=== PATIENT | female | born 1955 | race Caucasian/White ===

== ENCOUNTER 2021-03-03 08:00 | Day surgery (SDC) | payer OTHER ==
[2021-03-03] MEDS ORDERED: Ringers Lactate 1,000 ML IV ONE (08:43)
[2021-03-03] MEDS ORDERED: LIDOCAINE 1% MPF 5 ML VIAL ONE (09:46)
[2021-03-03] MEDS ORDERED: propofoL 200 MG/20 ML VIAL IV ONE (09:46)
--- NOTE | 2021-03-03 09:47 | ENDO RPT ---
[address], [address] COLONOSCOPY PROCEDURE REPORT EXAM DATE: 03/03/2021 PATIENT NAME: Odilia Salinas MR #: [id number] BIRTHDATE: 1955 ATTENDING: Brent Mcintosh DR STATUS: outpatient WASTE [employer]ING W[employer] CHOPPER: Elo Damon RN and Chantale Saldivar INDICATIONS: The patient is a 65 yr old Female here for a colonoscopy due to colon cancer screening PROCEDURE PERFORMED: Colonoscopy and Screening Colonoscopy MEDICATIONS: Per Anesthesia. ESTIMATED BLOOD LOSS: None CONSENT: The patient understands the risks and benefits of the procedure and understands that these risks include, but are not limited to: sedation, allergic reaction, infection, perforation and/or bleeding. Alternative means of evaluation and treatment include, among others: physical exam, x-rays, and/or surgical intervention. The patient elects to proceed with this endoscopic procedure. DESCRIPTION OF PROCEDURE: During intra-op preparation period all mechanical medical equipment was checked for proper function. Hand hygiene and appropriate measures for infection prevention was taken. Procedure, possible complications, alternatives including, but not limited to possibility of bleeding, perforation, tear, infection, sepsis, need for surgery, need for blood transfusion, were explained to the patient. After the risks, benefits and alternatives of the procedure were thoroughly explained, Informed consent was verified, confirmed and timeout was successfully executed by the treatment team. The patient was placed in the left lateral position. A digital rectal exam was performed and revealed internal hemorrhoids. After appropriate level of anesthesia, the scope was passed. The EC-[id number] ([id number] endoscope was introduced through the anus and advanced to the cecum, which was identified by both the appendix and ileocecal valve. The quality of the prep was fair. The instrument was then slowly withdrawn as the colon was fully examined. Scope withdrawal time was 8 minutes. COLON FINDINGS: Small internal hemorrhoids were found. Diverticulum was found in the sigmoid colon. Retroflexed views revealed no abnormalities. The scope was then completely withdrawn from the patient and the procedure terminated. ADVERSE EVENTS: There were no complications. IMPRESSIONS: 1. Small internal hemorrhoids 2. Diverticulum in the sigmoid colon RECOMMENDATIONS: 1. Monitor for any evidence of rectal bleeding. 2. fiber rich diet 3. avoid NSAIDS for 2 weeks 4. yearly hemoccult starting in 4 years 5. hemorrhoidal hygiene RECALL: Return in 5 year(s) for Colonoscopy. Fecal DNA test in [address] eSigned: Brent Mcintosh DR 03/03/2021 9:47 AM cc: CPT CODES: ICD9 CODES: PATIENT NAME: Odilia Salinas MR#: [id number]
[2021-03-03 10:07] VITALS: TEMP 97.6
[2021-03-03 10:16] VITALS: BP 121/71
[2021-03-03 10:21] VITALS: O2SAT 99
== END 2021-03-03 10:19 | disposition home or self-care (01) ==
LOC: OR 08:00
PROVIDERS: ATTEND Surgery
PROC: 0DJD8ZZ Inspection of Lower Intestinal Tract, Via Natural or Artificial Opening Endoscopic (ICD-10-PCS; principal; 2021-03-03 09:15)
DX: Z12.11 Encounter for screening for malignant neoplasm of colon (principal); Z20.822 Contact with and (suspected) exposure to COVID-19; K64.8 Other hemorrhoids; K57.30 Diverticulosis of large intestine without perforation or abscess without bleeding
CPT/HCPCS: U0003; J2704; J7120; G0121

== ENCOUNTER 2025-02-14 15:19 | Inpatient (IN) | payer OTHER ==
--- OUTSIDE RECORDS SUMMARY | 2025-02-14 21:27 | XMS REPORT | Continuity of Care Document ---
Author Name Unknown Address [address] [facility] [place] [address] [facility] Address [address] [facility] [address] [place] [address] Care Team Providers Care Counsel Name Role Phone Hyun Quintana Primary Care Physician [phone] Hyun Quintana Attending Clinician Unavailable Lor Irving Attending Clinician Unavailable EARNEST GREY Attending Clinician UnavailEARNEST Jarquin Attending Clinician Unavailable Wild Armando MD Attending Clinician [phone] WILD ARMANDO Attending Clinician Unavail able MARYLU Attending Clinician UnavailEARNEST Bingham Admitting Clinician Unavailcarlos VALERO Admitting Clinician Delfino paredes Payers Payer Name Policy Type Policy Number Effective Date Expirati on Date Source [employer] MED[employer]ARE [employer]VANTAGE Medicare [id number] 2023 00:00:00 [employer] MEDICARE O [id number] 2023 00:00:00 MEDICARE NOVITAS MB [id number] 2020 00:00:00 [facility] MEDICARE NOVITAS MB [id number] 2020 00:00:00 [facility] Problems Condition Name Condition Details Condition Category Status Onset Date Resolution Date Last Treatment Date Treating Clinician Comments Source 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 Disease Active 02-11 00:00: 00 Emelina Silver Malignant neoplasm of brain, unspecifie d Malignant neoplasm of brain, unspecifie d Disease Active 02-11 00:00: 00 Emelina Silver Allergic rhinitis Allergic rhinitis Disease Active 01-22 00:00: 00 Emelina Silver Fatigue Fatigue Disease Active 01-22 00:00: 00 Emelina Silver Gastroesop hageal reflux disease Gastroesop hageal reflux disease Disease Active 01-22 00:00: 00 Emelina Silver Hyperglyce zachariah Hyperglyce zachariah Disease Active 01-22 00:00: 00 Emelina Silver Hyperlipid emia Hyperlipid emia Disease Active 01-22 00:00: 00 Emelina Silver 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 01-22 00:00: 00 Emelina Silver Thoracic back pain Thoracic back pain Disease Active 01-22 00:00: 00 Emelina Silver Mass of brain Mass of brain Disease Active 01-22 00:00: 00 Emelina Silver Nontraumat ic 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 Nontraumat ic 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 Disease Active 01-09 00:00: 00 Emelina Silver Tremor Tremor Disease Active 12-17 00:00: 00 Emelina Silver Memory loss Memory loss Disease Active 12-17 00:00: 00 Emelina Silver Hypertensi on Hypertensi on Disease Active 12-17 00:00: 00 Emelina Silver Anxiety and depression Anxiety and depression Disease Active 8-05 00:00: 00 Emelina Silver [id number] Upper back pain Problem [facility] Family history of malignant neoplasm of gastrointe stinal tract Family history of colon cancer Problem [facility] [id number] Essential hypertensi on Problem [facility] Adult health examinatio n Encntr for general adult medical exam w/o abnormal findings Problem [facility] Elevated alkaline phosphatas e level Elevated alkaline phosphatas e level Disease Resolve d - 00:00: 00 2025-01-22 00:00:00 2025-01-22 10:58:27 Emelina Silver Encntr for general adult medical exam w/o abnormal findings Encntr for general adult medical exam w/o abnormal findings Disease Resolve d - 00:00: 00 2025-01-22 00:00:00 2025-01-22 10:58:27 Emelina Silver 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 Disease Resolve d - 00:00: 00 2025-01-22 00:00:00 2025-01-22 10:58:27 Emelina Silver Family history of colon cancer Family history of colon cancer Disease Resolve d - 00:00: 00 2025-01-22 00:00:00 2025-01-22 10:58:27 Emelina Silver Persistent cough Persistent cough Disease Resolve d - 00:00: 00 2025-01-22 00:00:00 2025-01-22 10:58:27 Emelina Silver Rash Rash Disease Resolve d - 00:00: 00 2025-01-22 00:00:00 2025-01-22 10:58:27 Emelina Silver Statin not tolerated Statin not tolerated Disease Resolve d - 00:00: 00 2025-01-22 00:00:00 2025-01-22 10:58:27 Emelina Silver Allergies, Adverse Reactions, Alerts Allergy Name Allergy Type Status Severity Reaction(s) Onset Date Inactive Date Treating Clinician Comments Source Ezetimib e Propensi ty to adverse reaction s Active 02-04 00:00: 00 Other Reaction( s): myalgias [facility] Simvasta tin Propensi ty to adverse reaction s Active 02-04 00:00: 00 Other Reaction( s): myalgias [facility] Statins Propensi ty to adverse reaction s Active 02-04 00:00: 00 Other Reaction( s): intoleran ce [facility] Social History Social Habit Start Date Stop Date Quantity Comments Source Gender identity 2025-02-05 10:36:17 Identifies as female gender (finding) [facility] [employer] Sexual orientation [facility]ION Possible [facility] History of Social function 2025-02-12 00:00:00 2025-02-12 00:00:00 [facility] [employer] Alcoholic beverage intake 2025-02-11 00:00:00 2025-02-11 00:00:00 Ex-drinker (finding) [facility] [place] [employer] Tobacco use and exposure 2025-02-10 00:00:00 2025-02-10 00:00:00 Smokeless tobacco non-user [facility] [employer] Cigarettes smoked current (pack per day) - Reported 2025-02-10 00:00:00 2025-02-10 00:00:00 [facility] [employer] Cigarette pack-years 2025-02-10 00:00:00 2025-02-10 00:00:00 [facility] [place] [employer] Sex 2025-01-23 16:46:06 2025-01-23 16:46:06 Female (finding) [facility] History of tobacco use 1969-05-15 00:00:00 1995-03-03 00:00:00 Passive smoker [facility] [place] [employer] Sex assigned at 1955 00:00:00 1955 00:00:00 [facility] Smoking Status Start Date Stop Date Source Tobacco smoking consumption unknown [facility] Ex-smoker 2025-02-10 00:00:00 2025-02-10 00:00:00 [facility] [place] [employer] Never Smoker [facility] Medications Ordered Medication Name Filled Medication Name Start Date Stop Date Current Medication? Ordering Clinician Indication Dosage Frequency Signature (SIG) Comments Components Source levETIRAcet am (Alexiara) tablet 500 mg levETIRAcet am (Keppra) tablet 500 mg 2024-05 0-03 21:00: 00 02-18 20:59 :00 No 500mg Q.5D 500 mg, Oral, Every 12 hours scheduled, First dose on Mon02/14/25 at 2100, For 8 doses Emelina Silver docusate sodium 100 MG capsule docusate sodium 100 MG capsule 2024-05 0- 00:00: 00 02-24 23:59 :00 No 100mg Q12H Take 1 capsule by mouth in the morning and 1 capsule in the evening. Do all this for 10 days. Emelina Silver dexAMETHaso ne (Decadron) 2 MG tablet dexAMETHaso ne (Decadron) 2 MG tablet 2024-05 0- 00:00: 00 02-22 23:59 :00 No Take 2 tablets by mouth 2 times a day with meals for 3 days, THEN 1 tablet 2 times a day with meals for 3 days, THEN 1 tablet 1 time each day for 2 days. Emelina Silver ondansetron (Zofran) 4 MG tablet ondansetron (Zofran) 4 MG tablet 2024-05 0- 00:00: 00 02-21 23:59 :00 No 4mg Q8H Take 1 tablet by mouth every 8 hours if needed for nausea or vomiting for up to 7 days. Emelina Silver levETIRAcet am (Keppra) 500 MG tablet levETIRAcet am (Keppra) 500 MG tablet 2024-05 0-03 00:00: 00 02-18 23:59 :00 No 500mg Q.5D Take 1 tablet by mouth in the morning and 1 tablet before bedtime. Emelina Silver polyethylen e glycol (PEG) 3350 (Miralax) packet 17 g polyethylen e glycol (PEG) 3350 (Miralax) packet 17 g 2024-05 0-02 09:00: 00 Yes 17g QD 17 g, Oral, Daily, First dose on Mon02/13/25 at 0900, Dissolve 17 g in 120 to 240 mL (4 to 8 ounces) of beverage. Emelina Silver docusate sodium (Colace) capsule 100 mg docusate sodium (Colace) capsule 100 mg 2024-05 08:00: 00 Yes 100mg Q12H 100 mg, Oral, Every 12 hours, First dose on Mon02/13/25 at 0800, OK to hold if loose stool Emelina Silver gadobenate dimeglumine (Multihance ) injection 13.5 mL gadobenate dimeglumine (Multihance ) injection 13.5 mL 2024-05 01:10: 19 02-13 01:26 :00 No .1mmol/ kg 13.5 mL (rounded from 13.6 mL = 0.1 mmol/kg ?68 kg), Intravenou s, Once in imaging, Starting on Mon02/13/25 at 0110, For 1 dose Emelina Silver hydrALAZINE injection 10 mg hydrALAZINE injection 10 mg 2024-05 22:11: 51 Yes 10mg Q4H 10 mg, Intravenou s, Every 4 hours PRN, high blood pressure, Starting on Mon02/12/25 at 2211, Give for SBP >150 Emelina Silver labetalol injection 10 mg labetalol injection 10 mg 2024-05 22:11: 34 Yes 10mg 10 mg, Intravenou s, Every 15 min PRN, high blood pressure, Starting on Mon02/12/25 at 2211, Give for SBP >150 May give up to three doses per episode, if BP still not at goal contact provider before giving further doses Emelina Silver heparin injection 5,000 Units heparin injection 5,000 Units 2024-05 18:00: 00 Yes 5000U [id number] 3D 5,000 Units, Subcutaneo us, Every 8 hours scheduled, First dose on Mon02/12/25 at 1800 Emelina Silver lisinopril tablet 20 mg lisinopril tablet 20 mg 2024-05 06:30: 00 Yes 20mg QD [Order 1 Start] Name: lisinopril tablet 20 mg Signed Summary: 20 mg, Oral, Daily 630, First dose (after last modificati on) on Mon02/12/25 at 0630 [Order 1 End] [Order 2 Start] Name: hydroCHLOR Othiazide (HYDRODiur il) tablet 12.5 mg Signed Summary: 12.5 mg, Oral, Daily 630, First dose (after last modificati on) on Mon02/12/25 at 0630 [Order 2 End] Emelina Barnett [facility] calcium gluconate 1g in NaCl 50mL IVPB 1 g calcium gluconate 1g in NaCl 50mL IVPB 1 g 2024-05 03:31: 43 Yes 1g 1 g, Intravenou s, at 100 mL/hr, Administer over 30 Minutes, As needed, Abnormal Lab Result, FOR ICU USE ONLY, Starting on Mon02/12/25 at 0331, For ionized calcium 0.8 to 0.9 mmol/L: Replace with calcium gluconate 1 gram IVPB over 30 minutes For ionized calcium </= 0.79 mmol/L: Replace with calcium gluconate 1gram IVPB over 30 minutes x 2 doses and notify MD Recheck Ionized Calcium level 2 hours after Calcium replacemen t complete. Emelina Barnett [facility] magnesium sulfate IVPB 2 g magnesium sulfate IVPB 2 g 2024-05 03:31: 43 Yes 2g 2 g, Intravenou s, Administer over 4 Hours, As needed, Abnormal Lab Result, FOR ICU USE ONLY, Starting on Mon02/12/25 at 0331, For magnesium 1.6 to 1.8 mg/dL: Replace with Mg Sulfate 2 grams IVPB over 4 hours x 1 dose. For magnesium 1.9 to 2.3 mg/dL(in CV surgery patients only): Replace with Mg Sulfate 2 grams IVPB over 4 hours X 1 dose> For magnesium </= 1.5 mg/dL: Replace with Mg Sulfate 2 grams IVPB over 4 hours X 2 doses. Notify MD if magnesium </= 1.1 mg/dL Recheck Magnesium level 2 hours after Magnesium replacemen t complete. Emelina Barnett Epic potassium & sodium phosphates (Phos-NaK) 280-160-250 MG packet 2 packet potassium & sodium phosphates (Phos-NaK) 280-160-250 MG packet 2 packet 2024-05 03:31: 43 Yes 2{packe t} Q4H [Order 1 Start] Name: potassium & sodium phosphates (Phos-NaK) 280-160-25 0 MG packet 2 packet Signed Summary: 2 packet, Oral, Every 4 hours PRN, Abnormal Lab Result, FOR ICU USE ONLY, Starting on Mon02/12/25 at 033, For phosphorus 1.6 to 3.0 mg/dL: Replace with potassium phosphate- sodium phosphate 250 mg-280 mg-160 mg oral powder 2 packets PO every 4 hours x 6 doses. Do Not Use if Potassium > 5 mEq/L Notify MD for phosphorus </= 1.4 mg/dL Recheck Phosphorus level 2 hours after Phosphorou s replacemen t complete. [Order 1 End] [Order 2 Start] Name: potassium & sodium phosphates (Phos-NaK) 280-160-25 0 MG packet 2 packet Signed Summary: 2 packet, Per G Tube, Every 4 hours PRN, Abnormal Lab Result, FOR ICU USE ONLY, Starting on Mon02/12/25 at 330, For phosphorus 1.6 to 3.0 mg/dL: Replace with potassium phosphate- sodium phosphate 250 mg-280 mg-160 mg oral powder 2 packets GT every 4 hours x 6 doses. Do Not Use if Potassium > 5 mEq/L Notify MD for phosphorus </= 1.4 mg/dL Recheck Phosphorus level 2 hours after Phosphorou s replacemen t complete. [Order 2 End] Emelina Barnett Epic sodium phosphates 45 mmol in sodium chloride 0.9 % 100 mL IVPB sodium phosphates 45 mmol in sodium chloride 0.9 % 100 mL IVPB 2024-05 03:31: 43 Yes 45mmol 45 mmol, Intravenou s, at 25 mL/hr, Administer over 4 Hours, As needed, Abnormal Lab Result, FOR ICU USE ONLY, Starting on Mon02/12/25 at 330, For phosphorus </= 1.5 mg/dL: Replace with NaPhos 45 mmol IVPB over 4 hours x 1 dose, and potassium phosphate- sodium phosphate 250 mg-280 mg-160 mg oral powder 2 packets PO/GT every 4 hours x 6 doses. Notify MD if phosphorus </= 1.4 mg/dL. Recheck Phosphorus level 2 hours after Phosphorou s replacemen t complete. Emelina regalado [place] [facility] potassium chloride IVPB 20 mEq potassium chloride IVPB 20 mEq 2024-05 03:31: 43 Yes 20meq [Order 1 Start] Name: potassium chloride IVPB 20 mEq Signed Summary: 20 mEq, Intravenou s, at 50 mL/hr, Administer over 2 Hours, As needed, Abnormal Lab Result, Via Central Line. FOR ICU USE ONLY, Starting on Mon02/12/25 at 033, Use PO or GT administra tion unless patient is first 12 hours post-op, active GI bleed, arrhythmia s, ischemic bowel or NPO.For patients with central venous access, use 20 mEq IVPB over 1 hour and repeat until total replacemen t dose is reached. For K 3.4 to 3.5 mEq/L: Replace with KCl 20 mEq IVPB Q1H x 2 doses For K 3.1 to 3.3 mEq/L: Replace with KCl 20 mEq IVPB Q1H x 3 doses. For K </= 3.0 mEq/L: Replace with KCl 20 mEq IVPB Q1H x 4 doses. Notify MD if potassium </= 2.9 mEq/L Recheck Potassium level 2 hours after IVPB Potassium replacemen t complete. [Order 1 End] [Order 2 Start] Name: potassium chloride IVPB 10 mEq Signed Summary: 10 mEq, Intravenou s, at 50 mL/hr, Administer over 1 Hours, As needed, Abnormal Lab Result, Via peripheral line, FOR ICU USE ONLY, Starting on Mon02/12/25 at 033, Use PO or GT administra tion unless patient is first 12 hours post-op, active GI bleed, arrhythmia s, ischemic bowel or NPO.For patients with peripheral venous access, use 10 mEq IVPB over 1 hour and repeat until total replacemen t dose is reached. For K 3.4 to 3.5 mEq/L: Replace with KCl 10 mEq IVPB Q1H x 4 doses. For K 3.1 to 3.3 mEq/L: Replace with KCl 10 mEq IVPB Q1H x 6 doses. For K </= 3.0 mEq/L: Replace with KCl 10 mEq IVPB Q1H x 8 doses. Notify MD if potassium </= 2.9 mEq/L Recheck Potassium level 2 hours after IVPB Potassium replacemen t complete. Infuse 10 mEq/hour via peripheral line [Order 2 End] [Order 3 Start] Name: potassium chloride CR (Klor-Con M20) ER tablet 20 mEq Signed Summary: 20 mEq, Oral, As needed, Abnormal Lab Result, FOR ICU USE ONLY, Starting on Mon02/12/25 at 033, Use PO administra tion unless patient is first 12 hours post-op, active GI bleed, arrhythmia s, ischemic bowel or NPO. For K 3.4 to 3.5 mEq/L: Replace with KCl 40 mEq PO x 1 dose. For K 3.1 to 3.3 mEq/L: Replace with KCl 60 mEq PO x 1 dose? For K </= 3.0 mEq/L: Replace with KCl 40 mEq PO Q2H x 2 doses. Notify MD if potassium </= 2.9 mEq/L? Recheck Potassium level 4 hours after PO/GT Potassium replacemen t complete. ? DO NOT CRUSH.? For patients able to take medication s orally or via feeding tube >/= 14 [place], may dissolve each 20 mEq tablet in 4 oz of water.? Allow about 2 minutes for the tablets to disintegra te.? Stir before giving to prepare slurry and administer .? Please exclude patient's with feeding tube less than 14 [place] (Dobhoff, J-tube, etc) and pediatric and patients. Do not crush or chew. [Order 3 End] [Order 4 Start] Name: Potassium chloride solution 20 mEq Signed Summary: 20 mEq, Per G Tube, As needed, Abnormal Lab Result, FOR ICU USE ONLY, Starting on Mon02/12/25 at 033, Use GT administra tion unless patient is first 12 hours post-op, active GI bleed, arrhythmia s, ischemic bowel or NPO. For K 3.4 to 3.5 mEq/L: Replace with KCl 40 mEq GT x 1 dose. For K 3.1 to 3.3 mEq/L: Replace with KCl 60 mEq GT x 1 dose For K </= 3.0 mEq/L: Replace with KCl 40 mEq GT Q2H x 2 doses. Notify MD if potassium </= 2.9 mEq/L Recheck Potassium level 4 hours after PO/GT Potassium replacemen t complete. [Order 4 End] Emelina Silver famotidine (PF) (Pepcid) injection 20 mg famotidine (PF) (Pepcid) injection 20 mg 02-11 21:00: 00 Yes 20mg Q.5D 20 mg, Intravenou s, Administer over 2 Minutes, Every 12 hours scheduled, First dose on Mon02/11/25 at 2100, For 1 dose, Can administer 10 mg IV over 2 mins Emelina Silver levETIRAcet am (Keppra) injection 500 mg levETIRAcet am (Keppra) injection 500 mg 02-11 21:00: 00 02-14 13:21 :48 No 500mg Q.5D 500 mg, Intravenou s, Every 12 hours scheduled, First dose on Mon02/11/25 at 2100, For 7 days, Administer over 3 minutes IV push for doses up to 1500 mg. Emelina Silver fosaprepita nt (Emend) 150 mg in sodium chloride 0.9 % 255 mL IVPB fosaprepita nt (Emend) 150 mg in sodium chloride 0.9 % 255 mL IVPB 02-11 20:15: 00 02-12 00:50 :00 No 150mg 150 mg, Intravenou s, at 510 mL/hr, Administer over 30 Minutes, Once, On Mon02/11/25 at 2015, For 1 dose Emelina Silver dexAMETHaso ne (Decadron) injection 4 mg dexAMETHaso ne (Decadron) injection 4 mg 02-11 17:00: 00 Yes 4mg Q12H 4 mg, Intravenou s, Every 12 hours, First dose on Mon02/11/25 at 1700, Recovery & On Unit Emelina Silver hydrALAZINE (Apresoline ) tablet 25 mg hydrALAZINE (Apresoline ) tablet 25 mg 02-11 17:00: 00 Yes 25mg Q.5D 25 mg, Oral, 2 times daily, First dose on Mon02/11/25 at 1700 Emelina Silver sennosides (Senokot) tablet 8.6 mg sennosides (Senokot) tablet 8.6 mg 02-11 17:00: 00 Yes 1{tbl} Q.5D 8.6 mg (1 tablet), Oral, 2 times daily, First dose on Mon02/11/25 at 1700 Emelina Silver labetalol injection 10 mg labetalol injection 10 mg 02-11 13:43: 15 02-11 21:16 :27 No 10mg 10 mg, Intravenou s, Every 5 min PRN, high blood pressure, Systolic blood pressure greater than 120 mmHg and/or Diastolic blood pressure greater than 90 mmHg. Hold if Heart Rate less than 60 beats per minute., Starting on Mon02/11/25 at 1343, Recovery (only) Emelina Silver sertraline (Zoloft) tablet 25 mg sertraline (Zoloft) tablet 25 mg 02-11 12:45: 00 Yes 25mg QD 25 mg, Oral, Daily 630, First dose on Mon02/11/25 at 1245, For tube: crush into fine powder, mix with 10 mL of water, give immediatel y, & flush with equal amount of water to prevent clogging. Emelina Silver buPROPion SR (Wellbutrin SR) 12 hr tablet 300 mg buPROPion SR (Wellbutrin SR) 12 hr tablet 300 mg 02-11 12:45: 00 Yes 300mg QD 300 mg, Oral, Daily 630, First dose on Mon02/11/25 at 1245, Do not crush, chew, or split. Emelina Barnett Epic famotidine (Pepcid) tablet 20 mg famotidine (Pepcid) tablet 20 mg 02-11 12:45: 00 Yes 20mg QD 20 mg, Oral, Daily, First dose on Mon02/11/25 at 1245 Emelina Barnett Epic sodium chloride (NS) 0.9 % flush 10 mL sodium chloride (NS) 0.9 % flush 10 mL 02-11 12:45: 00 Yes 10mL Q12H 10 mL, Intravenou s, Every 12 hours, First dose on Mon02/11/25 at 1245, Administer at least once every 12 hours Emelina Barnett Epic niCARdipine (Cardene) 40 mg/200 mL NS (0.2 mg/mL) premix niCARdipine (Cardene) 40 mg/200 mL NS (0.2 mg/mL) premix 02-11 12:45: 00 02-12 06:51 :50 No 0mg/h 0-15 mg/hr (0-75 mL/hr), Intravenou s, Continuous , Starting on Mon02/11/25 at 1245, Notify Provider if the medication is at max dose and BP parameters are not able to be achieved., Infusion Type: Titrate, Initial Dose (mg/hr): 2.5 - 5, Titrate by (mg/hr): 2.5, Minimum titration timeframe (minutes): 5, Target Blood Pressure (mmHg): Other, Specify Goal: SBP less than 120 mmhg, Max Dose (mg/hr): 15 Emelina regalado [place] [employer] traMADol (Ultram) tablet 50 mg traMADol (Ultram) tablet 50 mg 02-11 12:42: 20 Yes 50mg Q6H 50 mg, Oral, Every 6 hours PRN, moderate pain (4-6), [facility]02/11/25 [facility] 1242 [facility] HYDROcodone -acetaminop hen (Champion) 5-325 MG per tablet 2 tablet HYDROcodone -acetaminop hen (Champion) 5-325 MG per tablet 2 tablet 02-11 12:41: 59 Yes 2{tbl} Q6H 2 tablet, Oral, Every 6 hours PRN, severe pain (7-10), Starting on Mon02/11/25 at 1241 [facility] insulin lispro (HumaLOG, Admelog) injection 3-12 Units insulin lispro (HumaLOG, Admelog) injection 3-12 Units 02-11 12:38: 39 Yes 3U [id number] 3D 3-12 Units, Subcutaneo us, 3 times daily PRN, high blood sugar, with meals, Starting on Mon02/11/25 at 1238, For BG < 70, follow hypoglycem ia protocol and notify ordering provider. If patient can eat or drink, give oral carbohydra te as ordered per hypoglycem ia protocol. If patient NPO, give dextrose 50 % IV as ordered per hypoglycem ia protocol. If NPO and no IV access, give glucagon IM as ordered per hypoglycem ia protocol. Check BG every 15 minutes and repeat treatment if continued BG < 80., Correction Insulin Dosing: (DO NOT CHANGE DEFAULT SELECTION/ VALUES): Medium, BG < 70 instructio ns: Follow Hypoglycem ia Orders, BG 70-149 instructio ns: No Dose Needed, BG 150-199: 3, BG 200-249: 6, BG 250-299: 9, BG >/= 300: 12, BG > 300 instructio ns: Contact Provider Emelina Silver glucagon injection 1 mg glucagon injection 1 mg 02-11 12:38: 26 Yes 1mg 1 mg, Intramuscu lar, As needed, For BG < 70 mg/dL if no IV access and patient is either Unconsciou s, unable to swallow or npo, Starting on Mon02/11/25 at 1238, For BG < 70 mg/dL if no IV access and patient is either Unconsciou s, unable to swallow or npo and notify MD. Emelina Barnett Epic dextrose 50 % solution 25 g dextrose 50 % solution 25 g 02-11 12:38: 26 Yes 25g 25 g, Intravenou s, As needed, other, if Blood Glucose </= 50 mg/dL, Starting on Mon02/11/25 at 1238, If BG </=50 mg/dL, give 50 mL of D50W IV push STAT and notify MD. Emelina Silver dextrose 50 % solution 12.5 g dextrose 50 % solution 12.5 g 02-11 12:38: 26 Yes 12.5g 12.5 g, Intravenou s, As needed, low blood sugar, if Blood Glucose 51- 69 mg/dL, Starting on Mon02/11/25 at 1238, For BG 51-69 mg/dL and patient UNCONSCIOU S OR UNABLE TO SWALLOW OR NPO: Give 25 mL of D50W IV push and notify MD. mEelina Silver ipratropium -albuterol (Duo-Neb) 0.5-2.5 mg/3 mL nebulizer solution 3 mL ipratropium -albuterol (Duo-Neb) 0.5-2.5 mg/3 mL nebulizer solution 3 mL 02-11 12:37: 19 Yes 3mL Q4H 3 mL, Nebulizati on, Every 4 hours PRN, wheezing, Starting on Mon02/11/25 at 1237 Emelina Silver diphenhydrA MINE (BENADryl) liquid 12.5 mg diphenhydrA MINE (BENADryl) liquid 12.5 mg 02-11 12:37: 19 Yes 12.5mg Q6H 12.5 mg, Oral, Every 6 hours PRN, itching, Starting on Mon02/11/25 at 1237 Emelina Silver naloxone (Narcan) injection 0.04 mg naloxone (Narcan) injection 0.04 mg 02-11 12:37: 18 Yes .04mg 0.04 mg, Intravenou s, As needed, opioid reversal, every 2 mins PRN for Narcotic Reversal, Starting on Mon02/11/25 at 1237, For 8 doses, Give up to 8 doses of 0.04 mg as needed to reverse over sedation. Keep available for immediate use. Call ordering physician STAT. (Dilute 0.4 mg/mL in 9 mL of saline) Emelina Silver bisacodyl (Dulcolax) suppository 10 mg bisacodyl (Dulcolax) suppository 10 mg 02-11 12:37: 18 Yes 10mg Q24H 10 mg, Rectal, Daily PRN, constipati on, Starting on Mon02/11/25 at 1237 Emelina Silver ondansetron (Zofran) injection 4 mg ondansetron (Zofran) injection 4 mg 02-11 12:37: 18 Yes 4mg Q6H 4 mg, Intravenou s, Every 6 hours PRN, nausea, vomiting, Starting on Mon02/11/25 at 1237 Emelina Barnett Epic sodium chloride 0.9 % infusion 250 mL sodium chloride 0.9 % infusion 250 mL 02-11 12:37: 18 Yes 250mL 250 mL, Intravenou s, As needed, For antibiotic flush to clear line, replace bag every 24 hours., Starting on Mon02/11/25 at 1237 Emelina Barnett Epic sodium chloride (NS) 0.9 % flush 10 mL sodium chloride (NS) 0.9 % flush 10 mL 02-11 12:37: 18 Yes 10mL 10 mL, Intravenou s, As needed, line care, Line Flush, Starting on Mon02/11/25 at 1237 Emelina Silver electrolyte solution pH 7.4 (Plasma-lyt e/Normosol/ Isolyte) infusion electrolyte solution pH 7.4 (Plasma-lyt e/Normosol/ Isolyte) infusion 02-11 06:45: 00 02-12 06:50 :47 No 75mL/h 75 mL/hr, Intravenou s, Continuous , Starting on Mon02/11/25 at 0645, Preprocedu re, Anesthesia Pre-op Emelina Silver acetaminoph en (Tylenol) tablet 1,000 mg acetaminoph en (Tylenol) tablet 1,000 mg 02-11 06:45: 00 02-11 06:45 :00 No 1000mg 1,000 mg, Oral, Once, On Mon02/11/25 at 0645, For 1 dose, Preprocedu re, DO NOT GIVE IF PATIENT HAS RECEIVED ACETAMINOP HEN IN THE PAST SIX HOURS. Maybe administer ed with midazolam. Max acetaminop hen from all sources = 4,000 mg in 24 hours. Anesthesia Pre-op Emelina Silver acetaminoph en (Tylenol) 500 MG tablet - Pyxis Override Pull acetaminoph en (Tylenol) 500 MG tablet - Pyxis Override Pull 02-11 06:40: 48 02-11 06:45 :00 No Starting on Mon02/11/25 at 0640, For 1 dose, Created by cabinet override Emelina Silver sertraline (Zoloft) 25 MG tablet 02-07 10:15: 36 Yes 25mg QD Take 25 mg by mouth in the morning. [facility] Multiple Vitamins-Mi nerals (Multi Complete) capsule 02-07 10:15: 28 Yes 1 (one) time each day at the same time. [facility] Multiple Vitamin (multivitam in) tablet 02-07 10:15: 28 Yes 1{tbl} QD Take 1 tablet by mouth 1 (one) time each day. [facility] metFORMIN (Glucophage ) 500 MG tablet 02-07 10:15: 28 Yes 500mg [id number] 3D Take 500 mg by mouth in the morning and 500 mg at noon and 500 mg in the evening. [facility] loratadine (Claritin) 10 MG tablet 02-07 10:15: 28 Yes 1 tablet Orally Once a day prn [facility] Repatha 140 MG/ML solution prefilled syringe 02-07 10:15: 28 Yes INJECT 1 ML SUBCUTANEO EVERY 2 WEEKS [address] [facility] aspirin 81 MG EC tablet 02-07 10:15: 28 Yes 81mg QD 1 (one) time each day at the same time. [facility] Alirocumab (Praluent) 75 MG/ML solution auto-inject or 02-07 10:15: 28 Yes as directed Subcutaneo [facility] Semaglutide -Weight Management 0.25 MG/0.5ML solution auto-inject or 02-07 10:15: 28 Yes 0.5 mL Subcutaneo [facility] aspirin EC 81 MG EC tablet aspirin EC 81 MG EC tablet 12-17 13:57: 15 Yes 81mg QD Take 81 mg by mouth 1 time each day. Emelina [facility] Multiple Vitamin (multivitam in) tablet Multiple Vitamin (multivitam in) tablet 12-17 13:57: 15 Yes 1{tbl} QD Take 1 tablet by mouth 1 time each day. Emelina Silver NON FORMULARY NON FORMULARY 12-17 13:57: 15 01-22 00:00 :00 No [facility] Emelina [facility] metFORMIN (Glucophage ) 500 MG tablet metFORMIN (Glucophage ) 500 MG tablet 12-17 13:56: 14 Yes 500mg [id number] 3D Take 500 mg by mouth in the morning and 500 mg at noon and 500 mg in the evening. Emelina Barnett [facility] lisinopril- hydroCHLORO thiazide 20-12.5 MG tablet lisinopril- hydroCHLORO thiazide 20-12.5 MG tablet 12-11 00:00: 00 Yes 1{tbl} QD Take 1 tablet by mouth 1 time each day. Emelina Silver Repatha SureClick 140 MG/ML Subcutaneou s Solution Auto-inject or Repatha SureClick 140 MG/ML Subcutaneou s Solution Auto-inject or 11-25 00:00: 00 Yes 140mg Q14D Inject 140 mg under the skin every 14 days. Emelina Silver buPROPion SR (Wellbutrin SR) 150 MG 12 hr tablet buPROPion SR (Wellbutrin SR) 150 MG 12 hr tablet 11-14 00:00: 00 Yes 2{tbl} QD Take 2 tablets by mouth 1 time each day. Emelina Silver hydrALAZINE (Apresoline ) 25 MG tablet hydrALAZINE (Apresoline ) 25 MG tablet 11-14 00:00: 00 Yes 1{tbl} Q.5D Take 1 tablet by mouth in the morning and 1 tablet in the evening. Emelina Silver sertraline (Zoloft) 25 MG tablet sertraline (Zoloft) 25 MG tablet 10-22 00:00: 00 Yes 1{tbl} QD Take 1 tablet by mouth 1 time each day. Emelina Silver Claritin 10 MG Claritin 10 MG No 1{table t} Claritin 10 MG Aspirin 81 MG Aspirin 81 MG No 1{table t} QD Aspirin 81 MG Multi Complete - Multi Complete - No QD Multi Complete - metFORMIN HCl 500 MG metFORMIN HCl 500 MG No 1{table t_with_ a_meal} TID metFORMIN HCl 500 MG Immunizations Ordered Immunization Name Filled Immunization Name Date Status Comments Source FLUZONE HIGH DOSE OVER 65 FLUZONE HIGH DOSE OVER 65 2022-01-28 08:34:00 Completed [facility] FLUZONE HIGH DOSE OVER 65 FLUZONE HIGH DOSE OVER 65 2022-01-28 08:34:00 Completed [facility] FLUZONE HIGH DOSE OVER 65 FLUZONE HIGH DOSE OVER 65 2022-01-28 08:34:00 Completed [facility] Shingrix Shingrix 2021-04-12 08:57:00 Completed [facility] Shingrix Shingrix 2021-04-12 08:57:00 Completed [facility] Shingrix Shingrix 2021-04-12 08:57:00 Completed [facility] Moderna COVID-19 Vaccine (Low Dose Booster) Moderna COVID-19 Vaccine (Low Dose Booster) 2021-03-20 08:33:00 Completed [facility] Moderna COVID-19 Vaccine (Low Dose Booster) Moderna COVID-19 Vaccine (Low Dose Booster) 2021-03-20 08:33:00 Completed [facility] Moderna COVID-19 Vaccine (Low Dose Booster) Moderna COVID-19 Vaccine (Low Dose Booster) 2021-03-20 08:33:00 Completed [facility] Prevnar 13 (PCV13) Prevnar 13 (PCV13) 2021-02-22 08:57:00 Completed [facility] Prevnar 13 (PCV13) Prevnar 13 (PCV13) 2021-02-22 08:57:00 Completed [facility] Prevnar 13 (PCV13) Prevnar 13 (PCV13) 2021-02-22 08:57:00 Completed [facility] Shingrix Shingrix 2021-02-22 08:56:00 Completed [facility] Shingrix Shingrix 2021-02-22 08:56:00 Completed [facility] Shingrix Shingrix 2021-02-22 08:56:00 Completed [facility] FLUZONE HIGH DOSE OVER 65 FLUZONE HIGH DOSE OVER 65 2021-02-19 08:46:00 Completed [facility] FLUZONE HIGH DOSE OVER 65 FLUZONE HIGH DOSE OVER 65 2021-02-19 08:46:00 Completed [facility] FLUZONE HIGH DOSE OVER 65 FLUZONE HIGH DOSE OVER 65 2021-02-19 08:46:00 Completed [facility] Moderna COVID-19 Vaccine Moderna COVID-19 Vaccine 2020-06-23 08:27:00 Completed [facility] Moderna COVID-19 Vaccine Moderna COVID-19 Vaccine 2020-06-23 08:27:00 Completed [facility] Moderna COVID-19 Vaccine Moderna COVID-19 Vaccine 2020-06-23 08:27:00 Completed [facility] Moderna COVID-19 Vaccine Moderna COVID-19 Vaccine 2020-06-23 08:27:00 Completed [facility] Moderna COVID-19 Vaccine Moderna COVID-19 Vaccine 2020-05-27 08:27:00 Completed [facility] Moderna COVID-19 Vaccine Moderna COVID-19 Vaccine 2020-05-27 08:27:00 Completed [facility] Moderna COVID-19 Vaccine Moderna COVID-19 Vaccine 2020-05-27 08:27:00 Completed [facility] Moderna COVID-19 Vaccine Moderna COVID-19 Vaccine 2020-05-27 08:27:00 Completed [facility] Adacel (Tdap) Adacel (Tdap) 2019-07-09 14:56:00 Completed [facility] Adacel (Tdap) Adacel (Tdap) 2019-07-09 14:56:00 Completed [facility] Adacel (Tdap) Adacel (Tdap) 2019-07-09 14:56:00 Completed [facility] Adacel (Tdap) Adacel (Tdap) 2019-07-09 14:56:00 Completed [facility] TDAP > 7 Years-Adacel TDAP > 7 Years-Adacel 2019-07-09 00:00:00 Completed [facility] Flucelvax - multidose vial Flucelvax - multidose vial 2018-04-20 11:23:00 Completed [facility] Flucelvax - multidose vial Flucelvax - multidose vial 2018-04-20 11:23:00 Completed [facility] Flucelvax - multidose vial Flucelvax - multidose vial 2018-04-20 11:23:00 Completed [facility] Flucelvax - multidose vial Flucelvax - multidose vial 2018-04-20 11:23:00 Completed [facility] Afluria Afluria 2017-06-09 16:15:00 Completed [facility] Afluria Afluria 2017-06-09 16:15:00 Completed [facility] Afluria Afluria 2017-06-09 16:15:00 Completed [facility] Afluria Afluria 2017-06-09 16:15:00 Completed [facility] Flulaval Quadrivalent Flulaval Quadrivalent Unknown Completed [facility] Moderna COVID-19 Vaccine Moderna COVID-19 Vaccine Unknown Completed [facility] Moderna COVID-19 Vaccine, Bivalent Moderna COVID-19 Vaccine, Bivalent Unknown Completed [facility] Prevnar 13 (PCV13) Prevnar 13 (PCV13) Unknown Completed [facility] Flucelvax - multidose vial Flucelvax - multidose vial Unknown Completed [facility] Shingrix Shingrix Unknown Completed [facility] Afluria Afluria Unknown Completed [facility] FLUZONE HIGH DOSE OVER 65 FLUZONE HIGH DOSE OVER 65 Unknown Completed [facility] Adacel (Tdap) Adacel (Tdap) Unknown Completed [facility] Flulaval Quadrivalent Flulaval Quadrivalent Unknown Completed [facility] Moderna COVID-19 Vaccine Moderna COVID-19 Vaccine Unknown Completed [facility] Moderna COVID-19 Vaccine, Bivalent Moderna COVID-19 Vaccine, Bivalent Unknown Completed [facility] Prevnar 13 (PCV13) Prevnar 13 (PCV13) Unknown Completed [facility] Flucelvax - multidose vial Flucelvax - multidose vial Unknown Completed [facility] Shingrix Shingrix Unknown Completed [facility] Afluria Afluria Unknown Completed [facility] FLUZONE HIGH DOSE OVER 65 FLUZONE HIGH DOSE OVER 65 Unknown Completed [facility] Adacel (Tdap) Adacel (Tdap) Unknown Completed [facility] Flulaval Quadrivalent Flulaval Quadrivalent Unknown [facility] COVID-19 Vaccine Moderna COVID-19 Vaccine Unknown Completed [facility] Moderna COVID-19 Vaccine, Bivalent Moderna COVID-19 Vaccine, Bivalent Unknown Completed [facility] Prevnar 13 (PCV13) Prevnar 13 (PCV13) Unknown Completed [facility] Flucelvax - multidose vial Flucelvax - multidose vial Unknown Completed [facility] Shingrix Shingrix Unknown Completed [facility] Afluria Afluria Unknown Completed [facility] FLUZONE HIGH DOSE OVER 65 FLUZONE HIGH DOSE OVER 65 Unknown Completed [facility] Adacel (Tdap) Adacel (Tdap) Unknown Completed [facility] Flulaval Quadrivalent Flulaval Quadrivalent Unknown Completed [facility] Moderna COVID-19 Vaccine Moderna COVID-19 Vaccine Unknown Completed [facility] Moderna COVID-19 Vaccine, Bivalent Moderna COVID-19 Vaccine, Bivalent Unknown Completed [facility] Prevnar 13 (PCV13) Prevnar 13 (PCV13) Unknown Completed [facility] Flucelvax - multidose vial Flucelvax - multidose vial Unknown Completed [facility] Shingrix Shingrix Unknown Completed [facility] Afluria Afluria Unknown Completed [facility] FLUZONE HIGH DOSE OVER 65 FLUZONE HIGH DOSE OVER 65 Unknown Completed [facility] Adacel (Tdap) Adacel (Tdap) Unknown Completed [facility] FluLaval (IIV4) - SDS - 0.5mL FluLaval (IIV4) - SDS - 0.5mL Unknown Completed [facility] Moderna COVID-19 Vaccine Moderna COVID-19 Vaccine Unknown Completed [facility] Moderna COVID-19 Vaccine, Bivalent Moderna COVID-19 Vaccine, Bivalent Unknown Completed [facility] Prevnar 13 (PCV13) Prevnar 13 (PCV13) Unknown Completed [facility] Flucelvax (ccIIV4) - MDV - 0.5mL Flucelvax (ccIIV4) - MDV - 0.5mL Unknown Completed [facility] Shingrix Shingrix Unknown Completed [facility] Afluria Afluria Unknown Completed [facility] FLUZONE HIGH DOSE OVER 65 FLUZONE HIGH DOSE OVER 65 Unknown Completed [facility] Adacel (Tdap) Adacel (Tdap) Unknown Completed [facility] FluLaval (IIV4) - SDS - 0.5mL FluLaval (IIV4) - SDS - 0.5mL Unknown Completed [facility] Moderna COVID-19 Vaccine Moderna COVID-19 Vaccine Unknown Completed [facility] Moderna COVID-19 Vaccine, Bivalent Moderna COVID-19 Vaccine, Bivalent Unknown Completed [facility] Prevnar 13 (PCV13) Prevnar 13 (PCV13) Unknown Completed [facility] Flucelvax (ccIIV4) - MDV - 0.5mL Flucelvax (ccIIV4) - MDV - 0.5mL Unknown Completed [facility] Shingrix Shingrix Unknown Completed [facility] Afluria Afluria Unknown Completed [facility] FLUZONE HIGH DOSE OVER 65 FLUZONE HIGH DOSE OVER 65 Unknown Completed [facility] Adacel (Tdap) Adacel (Tdap) Unknown Completed [facility] FluLaval (IIV4) - SDS - 0.5mL FluLaval (IIV4) - SDS - 0.5mL Unknown Completed [facility] Moderna COVID-19 Vaccine Moderna COVID-19 Vaccine Unknown Completed [facility] Moderna COVID-19 Vaccine, Bivalent Moderna COVID-19 Vaccine, Bivalent Unknown Completed [facility] Prevnar 13 (PCV13) Prevnar 13 (PCV13) Unknown Completed [facility] Flucelvax (ccIIV4) - MDV - 0.5mL Flucelvax (ccIIV4) - MDV - 0.5mL Unknown Completed [facility] Shingrix Shingrix Unknown Completed [facility] Afluria Afluria Unknown Completed [facility] FLUZONE HIGH DOSE OVER 65 FLUZONE HIGH DOSE OVER 65 Unknown Completed [facility] Adacel (Tdap) Adacel (Tdap) Unknown Completed [facility] FluLaval (IIV4) - SDS - 0.5mL FluLaval (IIV4) - SDS - 0.5mL Unknown Completed [facility] Moderna COVID-19 Vaccine Moderna COVID-19 Vaccine Unknown Completed [facility] Moderna COVID-19 Vaccine, Bivalent Moderna COVID-19 Vaccine, Bivalent Unknown Completed [facility] Prevnar 13 (PCV13) Prevnar 13 (PCV13) Unknown Completed [facility] Flucelvax (ccIIV4) - MDV - 0.5mL Flucelvax (ccIIV4) - MDV - 0.5mL Unknown Completed [facility] Shingrix Shingrix Unknown Completed [facility] Afluria Afluria Unknown Completed [facility] FLUZONE HIGH DOSE OVER 65 FLUZONE HIGH DOSE OVER 65 Unknown Completed [facility] Adacel (Tdap) Adacel (Tdap) Unknown Completed [facility] FluLaval (IIV4) - SDS - 0.5mL FluLaval (IIV4) - SDS - 0.5mL Unknown Completed [facility] Moderna COVID-19 Vaccine Moderna COVID-19 Vaccine Unknown Completed [facility] Moderna COVID-19 Vaccine, Bivalent Moderna COVID-19 Vaccine, Bivalent Unknown Completed [facility] Prevnar 13 (PCV13) Prevnar 13 (PCV13) Unknown Completed [facility] Flucelvax (ccIIV4) - MDV - 0.5mL Flucelvax (ccIIV4) - MDV - 0.5mL Unknown Completed [facility] Shingrix Shingrix Unknown Completed [facility] Afluria Afluria Unknown Completed [facility] FLUZONE HIGH DOSE OVER 65 FLUZONE HIGH DOSE OVER 65 Unknown Completed [facility] Adacel (Tdap) Adacel (Tdap) Unknown Completed [facility] FluLaval (IIV4) - SDS - 0.5mL FluLaval (IIV4) - SDS - 0.5mL Unknown Completed [facility] COVID-19 Vaccine Moderna COVID-19 Vaccine Unknown Completed [facility] Moderna COVID-19 Vaccine, Bivalent Moderna COVID-19 Vaccine, Bivalent Unknown Completed [facility] Prevnar 13 (PCV13) Prevnar 13 (PCV13) Unknown Completed [facility] Flucelvax (ccIIV4) - MDV - 0.5mL Flucelvax (ccIIV4) - MDV - 0.5mL Unknown Completed [facility] Shingrix Shingrix Unknown Completed [facility] Afluria Afluria Unknown Completed [facility] FLUZONE HIGH DOSE OVER 65 FLUZONE HIGH DOSE OVER 65 Unknown Completed [facility] Adacel (Tdap) Adacel (Tdap) Unknown Completed [facility] FluLaval (IIV4) - SDS - 0.5mL FluLaval (IIV4) - SDS - 0.5mL Unknown Completed [facility] Moderna COVID-19 Vaccine Moderna COVID-19 Vaccine Unknown Completed [facility] Moderna COVID-19 Vaccine, Bivalent Moderna COVID-19 Vaccine, Bivalent Unknown Completed [facility] Prevnar 13 (PCV13) Prevnar 13 (PCV13) Unknown Completed [facility] Flucelvax (ccIIV4) - MDV - 0.5mL Flucelvax (ccIIV4) - MDV - 0.5mL Unknown Completed [facility] Shingrix Shingrix Unknown Completed [facility] Afluria Afluria Unknown Completed [facility] FLUZONE HIGH DOSE OVER 65 FLUZONE HIGH DOSE OVER 65 Unknown Completed [facility] Adacel (Tdap) Adacel (Tdap) Unknown Completed [facility] FluLaval (IIV4) - SDS - 0.5mL FluLaval (IIV4) - SDS - 0.5mL Unknown Completed [facility] COVID-19 Vaccine Moderna COVID-19 Vaccine Unknown Completed [facility] Moderna COVID-19 Vaccine, Bivalent Moderna COVID-19 Vaccine, Bivalent Unknown Completed [facility] Prevnar 13 (PCV13) Prevnar 13 (PCV13) Unknown Completed [facility] Flucelvax (ccIIV4) - MDV - 0.5mL Flucelvax (ccIIV4) - MDV - 0.5mL Unknown Completed [facility] Shingrix Shingrix Unknown Completed [facility] Afluria Afluria Unknown Completed [facility] FLUZONE HIGH DOSE OVER 65 FLUZONE HIGH DOSE OVER 65 Unknown Completed [facility] Adacel (Tdap) Adacel (Tdap) Unknown Completed [facility] FluLaval (IIV4) - SDS - 0.5mL FluLaval (IIV4) - SDS - 0.5mL Unknown Completed [facility] Moderna COVID-19 Vaccine Moderna COVID-19 Vaccine Unknown Completed [facility] Moderna COVID-19 Vaccine, Bivalent Moderna COVID-19 Vaccine, Bivalent Unknown Completed [facility] Prevnar 13 (PCV13) Prevnar 13 (PCV13) Unknown Completed [facility] Flucelvax (ccIIV4) - MDV - 0.5mL Flucelvax (ccIIV4) - MDV - 0.5mL Unknown Completed [facility] Shingrix Shingrix Unknown Completed [facility] Afluria Afluria Unknown Completed [facility] FLUZONE HIGH DOSE OVER 65 FLUZONE HIGH DOSE OVER 65 Unknown Completed [facility] Adacel (Tdap) Adacel (Tdap) Unknown Completed [facility] FluLaval (IIV4) - SDS - 0.5mL FluLaval (IIV4) - SDS - 0.5mL Unknown Completed [facility] COVID-19 Vaccine Moderna COVID-19 Vaccine Unknown Completed [facility] Moderna COVID-19 Vaccine, Bivalent Moderna COVID-19 Vaccine, Bivalent Unknown Completed [facility] Prevnar 13 (PCV13) Prevnar 13 (PCV13) Unknown Completed [facility] Flucelvax (ccIIV4) - MDV - 0.5mL Flucelvax (ccIIV4) - MDV - 0.5mL Unknown Completed [facility] Shingrix Shingrix Unknown Completed [facility] Afluria Afluria Unknown Completed [facility] FLUZONE HIGH DOSE OVER 65 FLUZONE HIGH DOSE OVER 65 Unknown Completed [facility] Adacel (Tdap) Adacel (Tdap) Unknown Completed [facility] FluLaval (IIV4) - SDS - 0.5mL FluLaval (IIV4) - SDS - 0.5mL Unknown Completed [facility] Moderna COVID-19 Vaccine Moderna COVID-19 Vaccine Unknown Completed [facility] COVID-19 Vaccine, Bivalent Moderna COVID-19 Vaccine, Bivalent Unknown Completed [facility] Prevnar 13 (PCV13) Prevnar 13 (PCV13) Unknown Completed [facility] Flucelvax (ccIIV4) - MDV - 0.5mL Flucelvax (ccIIV4) - MDV - 0.5mL Unknown Completed [facility] Shingrix Shingrix Unknown Completed [facility] Afluria Afluria Unknown Completed [facility] FLUZONE HIGH DOSE OVER 65 FLUZONE HIGH DOSE OVER 65 Unknown Completed [facility] Adacel (Tdap) Adacel (Tdap) [facility] ([facility] - SDS - 0.5mL Fluad (IIV) - SDS - 0.5mL Unknown Completed [facility] Prevnar 20 (PCV20) Prevnar 20 (PCV20) Unknown Completed [facility] Vital Signs Vital Name Observation Time Observation Value Comments S zuly Systolic blood pressure 2025-02-14 17:00:00 148 mm[Hg] [facility] Diastolic blood pressure 2025-02-14 17:00:00 82 mm[Hg] [facility] Heart rate 2025-02-14 17:00:00 71 /min [facility] Body temperature 2025-02-14 17:00:00 36.39 Myriam [facility] Respiratory rate 2025-02-14 17:00:00 16 /min [facility] Oxygen saturation in Arterial blood by Pulse oximetry 2025-02-14 16:17:19 97 /min [facility] Body height 2025-02-11 07:03:00 157.5 cm [facility] Body weight 2025-02-11 07:03:00 68 kg [facility] BMI 2025-02-11 07:03:00 27.42 kg/m2 Sami rial [facility] Systolic blood pressure 2025-02-07 15:15:00 144 mm[Hg] [facility] Diastolic blood pressure 2025-02-07 15:15:00 86 mm[Hg] [facility] Heart rate 2025-02-07 15:15:00 64 /min [facility] 2025-02-07 15:15:00 [facility] 2025-02-07 15:15:00 [facility] 2025-02-07 15:15:00 27[facility] 2025-01-22 10:56:00 144 mm[Hg] [facility] Diastolic blood pressure 2025-01-22 10:56:00 88 mm[Hg] [facility] Heart rate 2025-01-22 10:56:00 67 /min [facility] 2025-01-22 10:56:[address] 36.5 [facility] Respiratory rate 2025-01-22 10:56:00 16 /min [facility] Body height 2025-01-22 10:56:00 152.4 cm Sami [facility] Body weight 2025-01-22 10:56:00 65.227 kg Sami [facility] BMI 2025-01-22 10:56:00 28.08 kg/m2 [facility] Oxygen saturation in Arterial blood by Pulse oximetry 2025-01-22 10:56:00 98 /min [facility] Systolic blood pressure 2025-01-22 10:56:00 144 mm[Hg] [facility] Diastolic blood pressure 2025-01-22 10:56:00 88 mm[Hg] [facility] Heart rate 2025-01-22 10:56:00 67 /min [facility] Body temperature 2025-01-22 10:56:00 36.5 [facility] Respiratory rate 2025-01-22 10:56:00 16 /min [facility] Body height 2025-01-22 10:56:00 152.4 cm Sami [facility] Body weight 2025-01-22 10:56:00 65.227 kg Sami [facility] BMI 2025-01-22 10:56:00 28.08 kg/m2 [facility] Oxygen saturation in Arterial blood by Pulse oximetry 2025-01-22 10:56:00 98 /min [facility] height 2024-12-23 15:20:00 61.5 [in_i] Comm on [facility] weight 2024-12-23 15:20:00 142.4 [lb_av] Co [facility]mon [facility] temperature 2024-12-23 15:20:00 97.6 [degF] Com [facility] bmi 2024-12-23 15:20:00 26.47 kg/m2 Comm on [facility] oximetry 2024-12-23 15:20:00 98 % Commo n [facility] respiratory rate 2024-12-23 15:20:00 16 /min [facility] blood pressure systolic 2024-12-23 15:20:00 132 mm[Hg] Common [facility] blood pressure diastolic 2024-12-23 15:20:00 74 mm[Hg] [facility] height 2024-12-23 15:20:00 61.5 [in_i] Comm on [facility] weight 2024-12-23 15:20:00 142.4 [lb_av] Co mmon [facility] temperature 2024-12-23 15:20:00 97.6 [degF] Com [facility] bmi 2024-12-23 15:20:00 26.47 kg/m2 Comm on [facility] oximetry 2024-12-23 15:20:00 98 % Commo n [facility] respiratory rate 2024-12-23 15:20:00 16 /min [facility] blood pressure systolic 2024-12-23 15:20:00 132 mm[Hg] Common [facility] blood pressure diastolic 2024-12-23 15:20:00 74 mm[Hg] Common [facility] Systolic blood pressure 2024-12-17 14:27:00 147 mm[Hg] [facility] Diastolic blood pressure 2024-12-17 14:27:00 96 mm[Hg] [facility] Heart rate 2024-12-17 14:27:00 64 /min [facility] Body temperature 2024-12-17 14:27:00 36.22 Myriam [facility] Respiratory rate 2024-12-17 14:27:00 16 /min [facility] Body height 2024-12-17 14:27:00 152.4 cm Sami rial [facility] Body weight 2024-12-17 14:27:00 64.411 kg Sami rial [facility] BMI 2024-12-17 14:27:00 27.73 kg/m2 Sami rial [facility] Oxygen saturation in Arterial blood by Pulse oximetry 2024-12-17 14:27:00 99 /min [facility] Her j[facility] Systolic blood pressure 2024-12-17 14:27:00 147 mm[Hg] [facility] Diastolic blood pressure 2024-12-17 14:27:00 96 mm[Hg] [facility] Heart rate 2024-12-17 14:27:00 64 /min Memor ial [facility] Body temperature 2024-12-17 14:27:00 36.22 [facility] Respiratory rate 2024-12-17 14:27:00 16 /min [facility] Body height 2024-12-17 14:27:00 [facility] 2024-12-17 14:27:00 [facility]411 [facility] 2024-12-17 14:27:00 27.73 kg/m2 Sami rial [facility] Oxygen saturation in Arterial blood by Pulse oximetry 2024-12-17 14:27:00 99 /min [facility] height 2024-08-21 13:00:00 61.5 [in_i] Comm on [facility] weight 2024-08-21 13:00:00 151.0 [lb_av] Co mmon [facility] temperature 2024-08-21 13:00:00 97.3 [degF] Com [facility] bmi 2024-08-21 13:00:00 28.07 kg/m2 Comm on [facility] oximetry 2024-08-21 13:00:00 98 % Commo n [facility] respiratory rate 2024-08-21 13:00:00 18 /min Common [facility] blood pressure systolic 2024-08-21 13:00:00 112 mm[Hg] [facility] blood pressure diastolic 2024-08-21 13:00:00 84 mm[Hg] [facility] height 2024-04-22 13:20:00 61.5 [in_i] Comm on [facility] weight 2024-04-22 13:20:00 153.4 [lb_av] Co mmon [facility] temperature 2024-04-22 13:20:00 97.8 [degF] Com [facility] bmi 2024-04-22 13:20:00 28.51 kg/m2 Comm on [facility] oximetry 2024-04-22 13:20:00 98 % Commo n [facility] respiratory rate 2024-04-22 13:20:00 16 /min Common [facility] blood pressure systolic 2024-04-22 13:20:00 139 mm[Hg] Common Spiri t [facility] blood pressure diastolic 2024-04-22 13:20:00 88 mm[Hg] [facility] height 2024-04-22 13:20:00 61.5 [in_i] Comm on [facility] weight 2024-04-22 13:20:00 153.4 [lb_av] Co mmon [facility] temperature 2024-04-22 13:20:00 97.8 [degF] Com [facility] bmi 2024-04-22 13:20:00 28.51 kg/m2 Comm on [facility] oximetry 2024-04-22 13:20:00 98 % Commo n [facility] respiratory rate 2024-04-22 13:20:00 16 /min [facility] blood pressure systolic 2024-04-22 13:20:00 139 mm[Hg] Common [facility] blood pressure diastolic 2024-04-22 13:20:00 88 mm[Hg] Common [facility] height 2024-02-08 13:00:00 61.5 [in_i] Comm on [facility] weight 2024-02-08 13:00:00 153.6 [lb_av] Co [facility] temperature 2024-02-08 13:00:00 97.2 [degF] Com mon [facility] bmi 2024-02-08 13:00:00 28.55 kg/m2 Comm on [facility] oximetry 2024-02-08 13:00:00 98 % Commo n [facility] respiratory rate 2024-02-08 13:00:00 16 /min [facility] blood pressure systolic 2024-02-08 13:00:00 139 mm[Hg] Common [facility] blood pressure diastolic 2024-02-08 13:00:00 72 mm[Hg] Common [facility] height 2023-09-25 16:00:00 61.5 [in_i] Comm on [facility] weight 2023-09-25 16:00:00 137 [lb_av] Comm on [facility] bmi 2023-09-25 16:00:00 25.46 kg/m2 Comm on [facility] height 2023-05-22 14:40:00 61.5 [in_i] Comm on [facility] weight 2023-05-22 14:40:00 137.6 [lb_av] Co mmon [facility] temperature 2023-05-22 14:40:00 97.1 [degF] Com [facility] bmi 2023-05-22 14:40:00 25.58 kg/m2 Comm on [facility] oximetry 2023-05-22 14:40:00 98 % Commo n [facility] respiratory rate 2023-05-22 14:40:00 16 /min Common [facility] blood pressure systolic 2023-05-22 14:40:00 118 mm[Hg] [facility] blood pressure diastolic 2023-05-22 14:40:00 72 mm[Hg] [facility] height 2023-02-15 14:20:00 61.5 [in_i] Comm on [facility] weight 2023-02-15 14:20:00 142.6 [lb_av] Co mmon [facility] temperature 2023-02-15 14:20:00 97.1 [degF] Com [facility] bmi 2023-02-15 14:20:00 26.5 kg/m2 Commo n [facility] oximetry 2023-02-15 14:20:00 98 % Commo n [facility] respiratory rate 2023-02-15 14:20:00 16 /min Common [facility] blood pressure systolic 2023-02-15 14:20:00 138 mm[Hg] Common Spiri t [facility] blood pressure diastolic 2023-02-15 14:20:00 84 mm[Hg] [facility] height 2023-02-15 14:40:00 61.5 [in_i] Comm on [facility] weight 2023-02-15 14:40:00 142.6 [lb_av] Co mmon [facility] temperature 2023-02-15 14:40:00 97.1 [degF] Com [facility] bmi 2023-02-15 14:40:00 26.5 kg/m2 Commo n [facility] oximetry 2023-02-15 14:40:00 98 % Commo n [facility] respiratory rate 2023-02-15 14:40:00 16 /min Common [facility] blood pressure systolic 2023-02-15 14:40:00 138 mm[Hg] Common [facility] blood pressure diastolic 2023-02-15 14:40:00 84 mm[Hg] Common [facility] height 2022-09-30 12:00:00 61.5 [in_i] Comm on [facility] weight 2022-09-30 12:00:00 157 [lb_av] Comm on [facility] bmi 2022-09-30 12:00:00 29.18 kg/m2 Comm on [facility] height 2022-08-01 09:00:00 61.5 [in_i] Comm on [facility] weight 2022-08-01 09:00:00 157.8 [lb_av] Co mmon [facility] temperature 2022-08-01 09:00:00 97.2 [degF] Com mon [facility] bmi 2022-08-01 09:00:00 29.33 kg/m2 Comm on [facility] oximetry 2022-08-01 09:00:00 99 % Commo n [facility] respiratory rate 2022-08-01 09:00:00 16 /min Common [facility] blood pressure systolic 2022-08-01 09:00:00 139 mm[Hg] Common [facility] blood pressure diastolic 2022-08-01 09:00:00 66 mm[Hg] [facility] height 2022-05-02 08:40:00 61.5 [in_i] Comm on [facility] weight 2022-05-02 08:40:00 154.8 [lb_av] Co mmon [facility] temperature 2022-05-02 08:40:00 98.1 [degF] Com mon [facility] bmi 2022-05-02 08:40:00 28.77 kg/m2 Comm on [facility] oximetry 2022-05-02 08:40:00 100 % Commo n [facility] respiratory rate 2022-05-02 08:40:00 16 /min Common [facility] blood pressure systolic 2022-05-02 08:40:00 136 mm[Hg] [facility] blood pressure diastolic 2022-05-02 08:40:00 77 mm[Hg] Common [facility] height 2022-01-28 09:00:00 61.5 [in_i] Comm on [facility] weight 2022-01-28 09:00:00 156.2 [lb_av] Co mmon [facility] temperature 2022-01-28 09:00:00 98.6 [degF] Com [facility] bmi 2022-01-28 09:00:00 29.03 kg/m2 Comm on [facility] oximetry 2022-01-28 09:00:00 98 % Commo n [facility] respiratory rate 2022-01-28 09:00:00 17 /min Common [facility] blood pressure systolic 2022-01-28 09:00:00 122 mm[Hg] [facility] blood pressure diastolic 2022-01-28 09:00:00 82 mm[Hg] [facility] height 2022-01-28 08:00:00 61.5 [in_i] Comm on [facility] weight 2022-01-28 08:00:00 156.2 [lb_av] Co mmon [facility] temperature 2022-01-28 08:00:00 98.6 [degF] Com [facility] bmi 2022-01-28 08:00:00 29.03 kg/m2 Comm on [facility] oximetry 2022-01-28 08:00:00 98 % Commo n [facility] respiratory rate 2022-01-28 08:00:00 17 /min [facility] blood pressure systolic 2022-01-28 08:00:00 122 mm[Hg] Common [facility] blood pressure diastolic 2022-01-28 08:00:00 82 mm[Hg] [facility] height 2021-10-14 09:40:00 62.6 [in_i] Comm on [facility] weight 2021-10-14 09:40:00 169.8 [lb_av] Co mmon [facility] temperature 2021-10-14 09:40:00 97.3 [degF] Com mon [facility] bmi 2021-10-14 09:40:00 30.46 kg/m2 Comm on [facility] oximetry 2021-10-14 09:40:00 99 % Commo n [facility] respiratory rate 2021-10-14 09:40:00 18 /min Common [facility] blood pressure systolic 2021-10-14 09:40:00 135 mm[Hg] [facility] blood pressure diastolic 2021-10-14 09:40:00 70 mm[Hg] Common [facility] height 2021-07-14 10:00:00 62.6 [in_i] Comm on [facility] weight 2021-07-14 10:00:00 167.2 [lb_av] Co mmon [facility] temperature 2021-07-14 10:00:00 97.2 [degF] Com [facility] bmi 2021-07-14 10:00:00 29.99 kg/m2 Comm on [facility] oximetry 2021-07-14 10:00:00 99 % Commo n [facility] respiratory rate 2021-07-14 10:00:00 16 /min Common [facility] blood pressure systolic 2021-07-14 10:00:00 120 mm[Hg] Common [facility] blood pressure diastolic 2021-07-14 10:00:00 70 mm[Hg] [facility] height 2021-05-27 08:00:00 62.6 [in_i] Comm on [facility] weight 2021-05-27 08:00:00 167 [lb_av] Comm on [facility] temperature 2021-05-27 08:00:00 97.5 [degF] Com mon [facility] bmi 2021-05-27 08:00:00 29.96 kg/m2 Comm on [facility] oximetry 2021-05-27 08:00:00 100 % Commo n [facility] respiratory rate 2021-05-27 08:00:00 16 /min [facility] blood pressure systolic 2021-05-27 08:00:00 122 mm[Hg] Common [facility] blood pressure diastolic 2021-05-27 08:00:00 60 mm[Hg] [facility] height 2021-01-27 13:40:00 62.6 [in_i] Comm on [facility] weight 2021-01-27 13:40:00 159.8 [lb_av] Co mmon [facility] bmi 2021-01-27 13:40:00 28.67 kg/m2 Comm on [facility] Procedures Procedure Date / Time Performed Performing Clinician Source POC GLUCOSE UNSOLICITED RESULTS 2025-02-14 12:02:00 Earnest Grey [facility] POC GLUCOSE UNSOLICITED RESULTS 2025-02-14 08:02:00 Earnest Grey [facility] COMPREHENSIVE METABOLIC PANEL 2025-02-14 04:13:00 Hipolito Lala [facility] MAGNESIUM LEVEL 2025-02-14 04:13:00 [facility] PHOSPHORUS LEVEL 2025-02-14 04:13:00 Adagbon, Patience [facility] Epic COMPLETE BLOOD COUNT W/DIFF AND PLATELET 2025-02-14 04:13:00 Hipolito Lala [facility] COMPLETE BLOOD COUNT 2025-02-14 04:13:00 [facility] AUT[facility]ATED DIFFERENTIAL 2025-02-14 04:13:00 Hipolito Lala [facility] Complete Blood Count 2025-02-14 00:00:00 [facility] Epic Automated Differential 2025-02-14 00:00:00 [facility] POC GLUCOSE UNSOLICITED RESULTS 2025-02-13 16:37:00 Earnest Grey [facility] POC GLUCOSE UNSOLICITED RESULTS 2025-02-13 10:40:00 [facility] POC GLUCOSE UNSOLICITED RESULTS 2025-02-13 07:10:00 Earnest Grey [facility] BASIC METABOLIC PANEL 2025-02-13 02:38:00 AdagbonAdrienne [facility] MAGNESIUM LEVEL 2025-02-13 02:38:00 Adagbon, Patimakenzie [facility] Epic PHOSPHORUS LEVEL 2025-02-13 02:38:00 Adagbon, Patimakenzie [facility] COMPLETE BLOOD COUNT W/DIFF AND PLATELET 2025-02-13 02:38:00 Adagbon, Patimakenzie [facility] COMPLETE BLOOD COUNT 2025-02-13 02:38:00 AdagbonAmaya ence [facility] AUTOMATED DIFFERENTIAL 2025-02-13 02:38:00 AdagbonMin [facility] MRI BRAIN W AND WO IV CONTRAST 2025-02-13 01:44:44 DaiHipolito [facility] MRI brain w and wo IV contrast 2025-02-13 00:00:00 [facility] POC GLUCOSE UNSOLICITED RESULTS 2025-02-12 16:25:00 Earnest Grey [facility] POC GLUCOSE UNSOLICITED RESULTS 2025-02-12 11:39:00 Earnest Grey [facility] COMPREHENSIVE METABOLIC PANEL 2025-02-12 08:31:00 Hipolito Lala [facility] COMPLETE BLOOD COUNT W/DIFF AND PLATELET 2025-02-12 08:31:00 Hipolito Lala [facility] Epic AUTOMATED DIFFERENTIAL 2025-02-12 08:31:00 Hipolito Lala [facility] COMPLETE BLOOD COUNT 2025-02-12 08:31:00 Hipolito Lala [facility] REFLEX MAN DIFF AND MORPH - DO NOT ORDER 2025-02-12 08:31:00 Hipolito Lala [facility] POC GLUCOSE UNSOLICITED RESULTS 2025-02-12 07:12:00 Earnest Grey [facility] Epic BASIC METABOLIC PANEL 2025-02-12 00:21:00 AdagbonAdrienne [facility] Epic MAGNESIUM LEVEL 2025-02-12 00:21:00 Adagbon Patience [facility] Epic PHOSPHORUS LEVEL 2025-02-12 00:21:00 [facility] COMPLETE BLOOD COUNT W/DIFF AND PLATELET 2025-02-12 00:21:00 Adagbon Patience [facility] Epic TROPONIN I HIGH SENSITIVITY (SINGLE ORDER) 2025-02-12 00:21:00 [facility] 2025-02-12 00:21:00 Hipolito Lala [facility] COMPLETE BLOOD COUNT 2025-02-12 00:21:00 AdagbonAmaya [facility] Epic AUTOMATED DIFFERENTIAL 2025-02-12 00:21:00 AdagbonMin [facility] REFLEX MORPHOLOGY - DO NOT ORDER 2025-02-12 00:21:00 Adaeliason [facility] Epic ECG 12-LEAD 2025-02-11 23:17:58 [facility] GLUCOSE UNSOLICITED RESULTS 2025-02-11 17:34:00 Earnest Grey [facility] POC GLUCOSE UNSOLICITED RESULTS 2025-02-11 14:06:00 [facility]arnest [facility] Epic POC ARTERIAL BLOOD GAS AND BASIC PANEL UNSOLICITED RESULTS 2025-02-11 11:08:00 Earnest Grey [facility] POC ARTERIAL BLOOD GAS AND BASIC PANEL UNSOLICITED RESULTS 2025-02-11 09:01:00 Earnest Grey [facility] [place] CRNEC TREPH BONE FLAP CRNOT EXC BRAIN TUMOR STTL 2025-02-11 07:29:00 Earnest Grey [facility] [place] CRNEC TREPH BONE FLAP CRNOT EXC/FENEST CYST STTL 2025-02-11 07:29:00 Earnest Grey [facility] [place] STRTCTC CPTR ASSTD PX CRANIAL INTRADURAL 2025-02-11 07:29:00 Earnest Grey [facility] [place] MICROSURG TQS REQ USE OPERATING MICROSCOPE 2025-02-11 07:29:00 Earnest Grey [facility] [place] FUNCJAL RUBI&SUBCORT MAPG PHYS/QHP ATTND INIT HR 2025-02-11 07:29:00 Earnest Grey [facility] MRI brain w IV contrast 2025-02-07 00:00:00 [facility] MRI brain w and wo IV contrast 2025-01-22 00:00:00 [facility] XR chest 2 views 2025-01-09 00:00:00 [facility] CT brain w and wo IV contrast 2025-01-09 00:00:00 [facility] Creatinine, Serum 2025-01-09 00:00:00 [facility] Ceruloplasmin 2024-12-17 00:00:00 [facility] Copper Level 2024-12-17 00:00:00 [facility] C-Reactive Protein 2024-12-17 00:00:00 [facility] Sedimentation Rate 2024-12-17 00:00:00 [facility] Immunofixation (TEE) 2024-12-17 00:00:00 [facility] Thyroid Stimulating Hormone w/ Reflex Free T4 2024-12-17 00:00:00 [facility] Vitamin B1 Level 2024-12-17 00:00:00 [facility] Vitamin B12 Level 2024-12-17 00:00:00 [facility] Zinc Level 2024-12-17 00:00:00 [facility] Vitamin B6 Level 2024-12-17 00:00:00 [facility] MRI brain wo IV contrast 2024-12-17 00:00:00 [facility] CRANIOTOMY, FOR INTRACRANIAL NEOPLASM EXCISION Earnest Grey [facility] Tissue Examination [facility] Comprehensive Metabolic Panel [facility] Plan of Care Planned Activity Planned Date Details Comments Source Procedure 2025-03-13 00:00:00 POCT Glucose Mem orial [facility] Procedure 2025-03-11 00:00:00 Complete Blo od Count w/Diff and Platelet [facility] Procedure 2025-03-11 00:00:00 Basic Metabolic Panel [facility] Procedure 2025-03-11 00:00:00 Magnesium Level [facility] Procedure 2025-03-11 00:00:00 Phosphorus Level [facility] Encounters Start Date/Time End Date/Time Encounter Type Admission Type Attending [facility] Care Department Encounter ID Source 2024-04-18 08:19:00 Outpatient Hyun Quintana [facility] [id number] [facility] 2024-02-06 10:17:00 Outpatient Hyun Quintana [facility] [id number] [facility] 2024-01-12 10:37:00 Outpatient Hyun Quintana [facility] [id number] [facility] 2023-09-19 08:13:00 Outpatient Hyun Quintana STLMLC STLMLC [id number] [facility] 2023-05-18 14:46:00 Outpatient Hyun Quintana STLMLC STL[facility] [id number] [facility] 2023-01-25 15:13:00 Outpatient Hyun Quintana STLMLC STLMLC [id number] [facility] 2022-09-01 16:05:00 Outpatient Hyun Quintana STLMLC STLMLC [id number] [facility] 2022-08-30 11:51:00 Outpatient Hyun Quintana [facility] [id number] [facility] 2022-01-26 08:04:00 Outpatient Hyun Quintana [facility]IO [facility] [id number] [facility] 2021-06-21 10:06:01 Outpatient Hyun Quintana STJ[facility]ENCIO STLMLC [id number] [facility] 2021-06-09 14:34:13 Outpatient Hyun Quintana [facility] [id number] [facility] 2021-06-09 12:41:09 Outpatient Hyun Quintana [facility] [id number] [facility] 2021-06-09 12:32:43 Outpatient STLC STLC [id number] [facility] 2021-06-09 12:16:46 Outpatient STLC STLC [id number] [facility] 2021-06-09 11:55:27 Outpatient Lor Irving [facility] [id number] [facility] 2021-06-09 11:34:53 Outpatient Lor [facility] [id number] [facility] 2021-06-09 11:09:28 Outpatient Lor Irving [facility] [id number] [facility] 2025-02-11 06:09:00 2025-02-14 19:50:00 Hospital Encounter U [facility]ST [facility] [id number] Emelina regalado [facility] 2025-02-10 13:25:44 2025-02-10 14:57:30 Outpatient MHIEEPIC MHIEEPIC [id number] Emelina regalado [facility] 2025-02-10 12:00:00 2025-02-10 12:00:00 Outpatient EARNEST GREY [facility] [id number] [facility] 2025-02-10 10:15:48 2025-02-10 11:58:56 Outpatient C MHIEEPIC MHIEEPIC [id number] Emelina regalado [facility] 2025-02-07 00:00:00 2025-02-07 14:09:15 Orders Only Earnest Grey [facility] [id number] Emelina regalado [facility] 2025-02-07 10:45:00 2025-02-07 12:34:21 Consult Earnest Grey [facility] [id number] [facility] [id number] [facility] 2025-02-05 10:12:35 2025-02-05 13:37:01 Outpatient MHEOUT MHEOUT [id number] [facility] 2025-01-22 10:45:00 2025-01-22 11:45:46 Office Visit Wild Armando [id number] Emelina regalado [facility] 2025-01-22 10:25:56 2025-01-22 11:45:46 Outpatient WILD ARMANDO MHEOUT MHEOUT [id number] [facility] 2025-01-09 00:00:00 2025-01-09 19:02:42 Telephone Wild Armando [id number] Emelina regalado [facility] 2024-12-23 00:00:00 2024-12-23 00:00:00 OFFICE VISIT ESTAB PT LEVEL 4 [facility] [id number] [facility] 2024-12-23 00:00:00 2024-12-23 00:00:00 SUB ANNUAL MCR WELLNESS VISIT STLMLC STLMLC [id number] [facility] 2024-12-17 14:15:00 2024-12-17 15:00:23 Consult Wild Armando [id number] Emelina regalado [facility] 2024-12-17 13:50:34 2024-12-17 15:00:23 Outpatient WILD ARMANDO EOUT EOUT [id number] MHEOUT 2024-11-22 00:00:00 2024-11-22 00:00:00 (TEL) STLMLC STLMLC [id number] [facility] 2024-08-21 00:00:00 2024-08-21 00:00:00 OFFICE VISIT ESTAB PT LEVEL 3 STLMLC STLMLC [id number] [facility] 2024-04-22 00:00:00 2024-04-22 00:00:00 OFFICE VISIT ESTAB PT LEVEL 4 STLMLC STLMLC [id number] [facility] 2024-04-22 00:00:00 2024-04-22 00:00:00 SUB ANNUAL MCR WELLNESS VISIT STLMLC STLMLC [id number] [facility] 2024-02-08 00:00:00 2024-02-08 00:00:00 OFFICE VISIT ESTAB PT LEVEL 4 STLMLC STLMLC [id number] [facility] 2024-01-22 00:00:00 2024-01-22 00:00:00 (TEL) STLMLC STLMLC [id number] [facility] 2023-10-13 00:00:00 2023-10-13 00:00:00 (TEL) STLMLC STLMLC [id number] [facility] 2023-09-25 00:00:00 2023-09-25 00:00:00 OFFICE VISIT ESTAB PT LEVEL 3 STLMLC STLMLC [id number] [facility] 2023-07-04 00:00:00 2023-07-04 00:00:00 (TEL) STLMLC STLMLC [id number] [facility] 2023-06-12 00:00:00 2023-06-12 00:00:00 (TEL) STLMLC STLMLC [id number] [facility] 2023-05-22 00:00:00 2023-05-22 00:00:00 OFFICE VISIT ESTAB PT LEVEL 3 STLMLC STLMLC [id number] [facility] 2023-05-01 00:00:00 2023-05-01 00:00:00 (TEL) STLMLC STLMLC [id number] [facility] 2023-04-13 00:00:00 2023-04-13 00:00:00 (TEL) STLMLC STLMLC [id number] [facility] 2023-03-27 00:00:00 2023-03-27 00:00:00 (TEL) STLMLC STLMLC [id number] [facility] 2023-02-15 00:00:00 2023-02-15 00:00:00 OFFICE VISIT ESTAB PT LEVEL 3 STLMLC STLMLC [id number] [facility] 2023-02-15 00:00:00 2023-02-15 00:00:00 SUB ANNUAL [facility]LL[facility] VISIT STLMLC STLMLC [id number] [facility] 2023-02-13 00:00:00 2023-02-13 00:00:00 (TEL) STLMLC STLMLC [id number] [facility] 2022-09-30 00:00:00 2022-09-30 00:00:00 OFFICE VISIT ESTAB PT LEVEL 3 STLMLC STLMLC [id number] [facility] 2022-09-01 00:00:00 2022-09-01 00:00:00 OFFICE VISIT ESTAB PT LEVEL 4 STLMLC STLMLC [id number] [facility] 2022-08-01 00:00:00 2022-08-01 00:00:00 OFFICE VISIT ESTAB PT LEVEL 4 STLMLC STLMLC [id number] [facility] 2022-06-22 00:00:00 2022-06-22 00:00:00 (TEL) STLMLC STLMLC [id number] [facility] 2022-05-02 00:00:00 2022-05-02 00:00:00 OFFICE VISIT EST PT LEVEL 3 STLMLC STLMLC [id number] [facility] 2022-01-28 00:00:00 2022-01-28 00:00:00 OFFICE VISIT EST PT LEVEL 3 STLMLC STLMLC [id number] [facility] 2022-01-28 00:00:00 2022-01-28 00:00:00 SUB ANNUAL [facility] WELLNESS VISIT STLMLC STLMLC [id number] [facility] 2021-10-14 00:00:00 2021-10-14 00:00:00 OFFICE VISIT ESTAB PT LEVEL 4 STLMLC STLMLC [id number] [facility] 2021-07-14 00:00:00 2021-07-14 00:00:00 OFFICE VISIT ESTAB PT LEVEL 4 STLMLC STLMLC [id number] [facility] 2021-06-22 00:00:00 2021-06-22 00:00:00 (TEL) STLMLC STLMLC [id number] [facility] 2021-06-11 00:00:00 2021-06-11 00:00:00 (TEL) STLMLC STLMLC [id number] [facility] 2021-05-27 00:00:00 2021-05-27 00:00:00 OFFICE VISIT ESTAB PT LEVEL 4 STLMLC STLMLC [id number] [facility] 2021-04-26 00:00:00 2021-04-26 00:00:00 (TEL) STLMLC STLMLC [id number] [facility] 2021-01-27 00:00:00 2021-01-27 00:00:00 WELCOME TO MEDICARE PREV PHY EXAM STLMLC STLMLC [id number] [facility] 2021-01-27 00:00:00 2021-01-27 00:00:00 Outpatient STLMLC STLMLC [id number] [facility] 2020-12-24 00:00:00 2020-12-24 00:00:00 (TEL) STLMLC STLMLC [id number] [facility] 2020-11-26 00:00:00 2020-11-26 00:00:00 Outpatient STLMLC STLMLC [id number] [facility] 2020-10-26 00:00:00 2020-10-26 00:00:00 Outpatient STLMLC STLMLC [id number] [facility] 2020-07-29 00:00:00 2020-07-29 00:00:00 Outpatient STLMLC STLMLC [id number] [facility] 2020-07-06 00:00:00 2020-07-06 00:00:00 Outpatient STLMLC STLMLC [id number] [facility] 2020-02-27 00:00:00 2020-02-27 00:00:00 Outpatient STLMLC STLMLC [id number] [facility] 2020-02-27 00:00:00 2020-02-27 00:00:00 Outpatient STLMLC STLMLC [id number] [facility] 2020-02-26 00:00:00 2020-02-26 00:00:00 Outpatient STLMLC STLMLC [id number] [facility] 2019-12-21 21:12:00 2019-12-21 21:12:00 Outpatient [facility] [id number] [facility] 2019-12-17 13:20:00 2019-12-17 13:20:00 Outpatient [facility] [id number] [facility] 2019-10-11 07:43:2019-10-11 07:43:[address] [facility] [id number] [facility] 2019-07-09 13:00:00 2019-07-09 13:00:[address] [facility] Medicine [id number] [facility] 2019-03-05 08:00:00 2019-03-05 08:00:00 [facility] [id number] [facility] 2019-02-02 04:29:00 2019-02-02 04:29:00 [facility] [facility] [id number] [facility] 2019-02-01 17:56:00 2019-02-01 17:56:00 [address] [facility] Medicine [id number] [facility] 2019-01-25 16:00:00 2019-01-25 16:00:00 [facility] Medicine [id number] [facility] 2018-08-10 16:15:00 2018-08-10 16:15:00 [facility] Medicine [id number] [facility] Results Test Description Test Time Test Comments Results Result Co mments Source [facility] [id number] 08:05:10* Test Item Value Reference Range Interpretation Comme [facility] POC Glu (test code = 73736-4) 171 mg/dL 70-99 H POC Performing Location (vicente t code = 5200636091) [facility] Lab Interpretation (test cod e = 35020-8) Abnormal [facility] [id number] 16:50:21* Test Item Value Reference Range Interpretation Comme nts POC Glu (test code = 77679-1) 134 mg/dL 70-99 H POC Performing Location (vicente t code = 5494962125) [facility] Lab Interpretation (test cod e = 31896-8) Abnormal [facility] brain w and wo IV [id number] 13:33:19EXAM: MRI BRAIN WITH AND WITHOUT CONTRAST DATE: 02/13/2025 1:09 INDICATION: post resection ?. Per electronic medical record, history ofenhancing mass lesion centered in the left basal ganglia status post leftpterional craniotomy for partial resection of the tumor on 02/11/2025. COMPARISON: MRI brain 02/10/2025, 02/05/2025. TECHNIQUE: Multiplanar, multisequence MRI of the brain with and withoutcontrast .IV contrast: See orthopedic radiologic technologist note FINDINGS: Postoperative: Postoperative changes of a left pterional craniotomy, with duralthickening, and overlying subcutaneous edema extending to the overlying leftface. Postcontrast: There has been interval partial resection of the heterogenous,hemorrhagic,partially enhancing mass involving the left coyle radiata,lentiform nucleus, and insula, with of the resection spanning the inferior andposterior portion. The residual component measures 2.4 x 2.6 x3.1 cm AP x Lat xCC, better seen on series 19 image 71 and on series 20 image 111). ? Questionable faint focus of contrast enhancement seen in the left jt (, image 95), unchanged. There is no T2 signal abnormality in this region. T2/FLAIR: T2 FLAIR hyperintense signal extends to the left frontal lobeincluding the left precentral gyrus, left frontal operculum, anterior andposterior limbsof the internal capsule, globus pallidus, and left thalamus. Diffusion: Patchy areas of restricted diffusion along the posterior margin ofthe surgical bed (series 5 image 14) are demonstrated, which were not present onthe preoperative study and may represent postoperative ischemia. Susceptibility: Magnetic susceptibility extends throughout the surgical bed fromprior hemorrhage/hemosiderin. Other:No other new intracranial abnormality. Right mastoid effusion, unchangedfrom 02/05/2025. 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 Although this could merely represent acapillary telangiectasia, attention on follow-up imaging is warranted. This report was dictated by a Fine Grader/Fellow/MARCELO: Markell Vasquez MD 02/13/2025 9:17 This report was dictated by a Fine Grader/Fellow/Physician Specimen Technician. Ihave personally reviewed the images as well as the interpretation and agree withthe findings. Report finalized by: Shanda Dunn MD 02/13/2025 13:33Shanda Burton MD - 02/13/2025 EXAM: MRI BRAIN WITH AND WITHOUT CONTRASTDATE: 02/13/2025 1:09INDICATION: post resection . Per electronic medical record, history ofenhancing mass lesion centered in the left basal ganglia status post leftpterional craniotomy for partial resection of the tumor on 02/11/2025.COMPARISON: MRI brain 02/10/2025, 02/05/2025.TECHNIQUE: Multiplanar, multisequence MRI of the brain with and withoutcontrast.IV contrast: See MRI estee hnologist noteFINDINGS:Postoperative: Postoperative changes of a left pterional craniotomy, with duralthickening, and overlying subcutaneous edema extending to the overlying leftface.Postcontrast: There has been interval partial resection of the heterogenous,hemorrhagic, partially enhancing mass involving the left coyle radiata,lentiform nucleus, and insula, with of the resection spanning the inferior andposterior portion. The residual component measures 2.4 x 2.6 x 3.1 cm AP x Lat xCC, betterseen on series 19 image 71 and on series 20 image 111). Questionable faint focus of contrast enhancement seen in the left jt ([id number], image 95), unchanged. There is no T2 signal abnormality in this region. T2/FLAIR: T2 FLAIR hyperintense signal extends to the left frontal lobeincluding the leftprecentral gyrus, left frontal operculum, anterior andposterior limbs of the internal capsule, globus pallidus, and left thalamus.Diffusion: Patchy areas of restricted diffusion along the posterior ma rgin ofthe surgical bed (series 5 image 14) are demonstrated, which were not present onthe preoperative study and may represent postoperative ischemia.Susceptibility: Magnetic susceptibility extends throughout the surgical bed fromprior hemorrhage/hemosiderin.Other: No other new intracranial abnorma lity. 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 Ihave personally reviewed the images as well as the interpretation and agree withthe findings.Report finalized by: Shanda Dunn MD 02/13/2025 13:33[facility] Qbtwgvd0719-40-01 10:44:18* Test Item Value Reference Range Interpretation Comme nts POC Glu (test code = 42930-5) 151 mg/dL 70-99 H POC Glu Comment 1 (test code = 4128487023) Notified RN/MD POC Performing Location (vicente t code = 6187547119) [facility] Lab Interpretation (test cod e = 57343-9) Abnormal [facility] Gyswraw3906-35-78 07:26:21* Test Item Value Reference Range Interpretation Comme nts POC Glu (test code = 72391-5) 125 mg/dL 70-99 H POC Glu Comment 1 (test code = 6112564405) Notified RN/MD POC Performing Location (vicente t code = 1603281968) [facility] Lab Interpretation (test cod e = 46718-1) Abnormal [facility] [id number] 17:00:53* Test Item Value Reference Range Interpretation Comme nts POC Glu (test code = 38144-3) 144 mg/dL 70-99 H POC Glu Comment 1 (test code = 5214336714) Notified RN/MD POC Performing Location (vicente t code = 0174305509) [facility] Lab Interpretation (test cod e = 84428-4) Abnormal [facility] Egrwpfv5575-29-04 11:49:02* Test Item Value Reference Range Interpretation Comme nts POC Glu (test code = 91277-6) 149 mg/dL 70-99 H POC Glu Comment 1 (test code = 6740805541) Notified RN/MD POC Performing Location (vicente t code = 3122099111) [facility] Lab Interpretation (test cod e = 28699-5) Abnormal [facility] 12 mpvk9095-84-10 09:09:09* Test Item Value Reference Range Interpretation Comme nts Ventricular Rate (test code = 5285470843) BPM Atrial Rate (test code = 5770842185) BPM OK Interval (test code = 8901137654) 180 ms QRS Duration (test code = 3795157461) 86 ms QT/QTc (test code = 1681019404) 364 ms QTc Calculation (test code = 4446702628) 462 ms P-[place] (test code = 5340369459) degrees R-[place] (test code = 4349143245) degrees T-[place] (test code = 9133542723) degrees IMP (test code = IMP) PXN (test code = PXN) [facility] Nafzlrc1363-89-51 07:28:40* Test Item Value Reference Range Interpretation Comme nts POC Glu (test code = 91086-9) 135 mg/dL 70-99 H POC Glu Comment 1 (test code = 8335426415) Notified RN/MD POC Performing Location (vicente t code = 2716448917) [facility] Lab Interpretation (test cod e = 39697-2) Abnormal [facility] Zenpikt9943-64-13 17:37:08* Test Item Value Reference Range Interpretation Comme nts POC Glu (test code = 67363-2) 157 mg/dL 70-99 H POC Performing Location (vicente t code = 1506707737) [facility] Lab Interpretation (test cod e = 46788-2) Abnormal [facility] Adgzwel6927-73-65 14:09:53* Test Item Value Reference Range Interpretation Comme nts POC Glu (test code = 09244-7) 143 mg/dL 70-99 H POC Glu Comment 1 (test code = 4270327205) Notified RN/MD POC Glu Comment 2 (test code = 7962426966) Cleaned Meter POC Performing Location (vicente t code = 6304588317) [facility] Lab Interpretation (test cod e = 19034-1) Abnormal [facility] Arterial Blood Gas and Basic Sioek2437-05-71 11:10:44* Test Item Value Reference Range Interpretation Comme nts POC A Temp (test code = 5173572469) DegC POC A Source (test code = 6167929829) ART POC A pH (test code = 2744-1) 7.35-7.45 POC A PCO2 (test code = 2019-8) See_Comment L [Automated messa ge] The system which generated this result transmitted reference range: 35 - 45 mmHg. The reference range was not used to interpret this result as normal/abnormal. POC A PO2 (test code = 2703-7) See_Comment [Automated messa ge] The system which generated this result transmitted reference range: 80 - 100 mmHg. The reference range was not used to interpret this result as normal/abnormal. POC A HCO3 (test code = 1960-4) See_Comment [Automated messa ge] The system which generated this result transmitted reference range: 22 - 26 mMol/L. The reference range was not used to interpret this result as normal/abnormal. POC A BE (test code = 1925-7) See_Comment [Automated messa ge] The system which generated this result transmitted reference range: -2 - 2 mMol/L. The reference range was not used to interpret this result as normal/abnormal. POC A O2 Sat (calc) (test code = 2708-6) 99.8 % 95-100 POC A Hgb Tot (test code = 78425-4) 10.1 g/dL 11.2-15.7 L POC A Hct (calc) (test code = 08972-2) 30.0 % 34.1-44.9 L POC A Na (test code = 02961-3) See_Comment [Automated messa ge] The system which generated this result transmitted reference range: 135 - 145 mEq/L. The reference range was not used to interpret this result as normal/abnormal. POC A K (test code = 7088959) See_Comment [Automated messa ge] The system which generated this result transmitted reference range: 3.5 - 5.1 mEq/L. The reference range was not used to interpret this result as normal/abnormal. POC Chloride (test code = 2996441) See_Comment H [Automated messa ge] The system which generated this result transmitted reference range: 95 - 109 mEq/L. The reference range was not used to interpret this result as normal/abnormal. POC A Glu (test code = 2339-0) 105 mg/dL 70-99 H POC A LA (test code = 224) See_Comment [Automated messa ge] The system which generated this result transmitted reference range: 0.5 - 2.2 mMol/L. The reference range was not used to interpret this result as normal/abnormal. POC A Ca Ion (test code = 42819-1) See_Comment [Automated messa ge] The system which generated this result transmitted reference range: 1.05 - 1.25 mMol/L. The reference range was not used to interpret this result as normal/abnormal. POC A Ca Ion (7.4) (test code = 7083404127) 1.14 mmol/L 1.05-1.25 POC Performing Location (test code = 8668436559) [facility] Lab Interpretation (test code = 42025-4) Abnormal [facility] Arterial Blood Gas and Basic Xvsbv3334-49-90 09:04:09* Test Item Value Reference Range Interpretation Comme nts POC A Temp (test code = 7044511762) DegC POC A Source (test code = 2336259119) ART POC A pH (test code = 2744-1) 7.35-7.45 POC A PCO2 (test code = 2019-8) See_Comment L [Automated messa ge] The system which generated this result transmitted reference range: 35 - 45 mmHg. The reference range was not used to interpret this result as normal/abnormal. POC A PO2 (test code = 2703-7) See_Comment [Automated messa ge] The system which generated this result transmitted reference range: 80 - 100 mmHg. The reference range was not used to interpret this result as normal/abnormal. POC A HCO3 (test code = 1960-4) See_Comment L [Automated messa ge] The system which generated this result transmitted reference range: 22 - 26 mMol/L. The reference range was not used to interpret this result as normal/abnormal. POC A BE (test code = 1925-7) See_Comment L [Automated messa ge] The system which generated this result transmitted reference range: -2 - 2 mMol/L. The reference range was not used to interpret this result as normal/abnormal. POC A O2 Sat (calc) (test code = 2708-6) 99.8 % 95-100 POC A Hgb Tot (test code = 31670-6) 12.9 g/dL 11.2-15.7 POC A Hct (calc) (test code = 48952-3) 39.0 % 34.1-44.9 POC A Na (test code = 63330-0) See_Comment L [Automated messa ge] The system which generated this result transmitted reference range: 135 - 145 mEq/L. The reference range was not used to interpret this result as normal/abnormal. POC A K (test code = 7661568) See_Comment L [Automated messa ge] The system which generated this result transmitted reference range: 3.5 - 5.1 mEq/L. The reference range was not used to interpret this result as normal/abnormal. POC Chloride (test code = 9051423) See_Comment [Automated messa ge] The system which generated this result transmitted reference range: 95 - 109 mEq/L. The reference range was not used to interpret this result as normal/abnormal. POC A Glu (test code = 2339-0) 106 mg/dL 70-99 H POC A LA (test code = 224) See_Comment [Automated messa ge] The system which generated this result transmitted reference range: 0.5 - 2.2 mMol/L. The reference range was not used to interpret this result as normal/abnormal. POC A Ca Ion (test code = 46947-1) See_Comment L [Automated messa ge] The system which generated this result transmitted reference range: 1.05 - 1.25 mMol/L. The reference range was not used to interpret this result as normal/abnormal. POC A Ca Ion (7.4) (test code = 2875802217) 0.99 mmol/L 1.05-1.25 L POC Performing Location (test code = 0339796423) [facility] Lab Interpretation (test code = 20265-3) Abnormal [facility] METABOLIC PANEL(CMP)2024-12-18 00:00:00* Test Item Value Reference Range Interpretation Comme nts ABSOLUTE BASOPHILS (test code = 704-7) 31 cells/uL See_Comment N [Automated m essage] The system which generated this result transmitted reference range: 0-200 cells/uL. The reference range was not used to interpret this result as normal/abnormal. ABSOLUTE EOSINOPHILS (test code = 711-2) 109 cells/uL See_Comment N [Automated m essage] The system which generated this result transmitted reference range: 15-500 cells/uL. The reference range was not used to interpret this result as normal/abnormal. ABSOLUTE LYMPHOCYTES (test code = 731-0) 1654 cells/uL See_Comment N [Automated m essage] The system which generated this result transmitted reference range: 850-3900 cells/uL. The reference range was not used to interpret this result as normal/abnormal. ABSOLUTE MONOCYTES (test code = 742-7) 515 cells/uL See_Comment N [Automated m essage] The system which generated this result transmitted reference range: 200-950 cells/uL. The reference range was not used to interpret this result as normal/abnormal. ABSOLUTE NEUTROPHILS (test code = 751-8) 2891 cells/uL See_Comment N [Automated m essage] The system which generated this result transmitted reference range: 1527-4711 cells/uL. The reference range was not used to interpret this result as normal/abnormal. BASOPHILS (test code = 706-2) 0.6 % N EOSINOPHILS (test code = 713-8) 2.1 % N HEMATOCRIT (test code = 4544-3) 38.3 % See_Comment N [Automated messa ge] The system which generated this result transmitted reference range: 35.0-45.0 %. The reference range was not used to interpret this result as normal/abnormal. HEMOGLOBIN (test code = 718-7) 12.5 g/dL See_Comment N [Automated messa ge] The system which generated this result transmitted reference range: 11.7-15.5 g/dL. The reference range was not used to interpret this result as normal/abnormal. LYMPHOCYTES (test code = 736-9) 31.8 % N MCH (test code = 785-6) 32.4 pg See_Comment N [Automated messa ge] The system which generated this result transmitted reference range: 27.0-33.0 pg. The reference range was not used to interpret this result as normal/abnormal. MCHC (test code = 786-4) 32.6 g/dL See_Comment N [Automated messa ge] The system which generated this result transmitted reference range: 32.0-36.0 g/dL. The reference range was not used to interpret this result as normal/abnormal. MCV (test code = 787-2) 99.2 fL See_Comment N [Automated messa ge] The system which generated this result transmitted reference range: 80.0-100.0 fL. The reference range was not used to interpret this result as normal/abnormal. MONOCYTES (test code = 5905-5) 9.9 % N MPV (test code = 776-5) 10.2 fL See_Comment N [Automated messa ge] The system which generated this result transmitted reference range: 7.5-12.5 fL. The reference range was not used to interpret this result as normal/abnormal. NEUTROPHILS (test code = 770-8) 55.6 % N PLATELET COUNT (test code = 777-3) 239 Thousand/uL See_Comment N [Automated message] The system which generated this result transmitted reference range: 140-400 Thousand/uL. The reference range was not used to interpret this result as normal/abnormal. RDW (test code = 788-0) 12.6 % See_Comment N [Automated messa ge] The system which generated this result transmitted reference range: 11.0-15.0 %. The reference range was not used to interpret this result as normal/abnormal. RED BLOOD CELL COUNT (test code = 789-8) 3.86 Million/uL See_Comment N [Automated message] The system which generated this result transmitted reference range: 3.80-5.10 Million/uL. The reference range was not used to interpret this result as normal/abnormal. WHITE BLOOD CELL COUNT (test code = 6690-2) 5.2 Thousand/uL See_Comment N [Automated message] The system which generated this result transmitted reference range: 3.8-10.8 Thousand/uL. The reference range was not used to interpret this result as normal/abnormal. CHOL/HDLC RATIO (test code = 9830-1) 2.5 (calc) See_Comment N [Automated messa ge] The system which generated this result transmitted reference range: <5.0 (calc). The reference range was not used to interpret this result as normal/abnormal. CHOLESTEROL, TOTAL (test code = 2093-3) 175 mg/dL See_Comment N [Automated message] The system which generated this result transmitted reference range: <200 mg/dL. The reference range was not used to interpret this result as normal/abnormal. HDL CHOLESTEROL (test code = 2085-9) 69 mg/dL See_Comment N [Automated messa ge] The system which generated this result transmitted reference range: > OR = 50 mg/dL. The reference range was not used to interpret this result as normal/abnormal. LDL-CHOLESTEROL (test code = 39965-9) 93 mg/dL (calc) N NON HDL CHOLESTEROL (test code = 58116-9) 106 mg/dL (calc) See_Comment N [Automated message] The system which generated this result transmitted reference range: <130 mg/dL (calc). The reference range was not used to interpret this result as normal/abnormal. TRIGLYCERIDES (test code = 2571-8) 52 mg/dL See_Comment N [Automated [employer]] The system which generated this result transmitted reference range: <150 mg/dL. The reference range was not used to interpret this result as normal/abnormal. ALBUMIN (test code = 1751-7) 4.4 g/dL See_Comment N [Automated [employer]] The system which generated this result transmitted reference range: 3.6-5.1 g/dL. The reference range was not used to interpret this result as normal/abnormal. ALBUMIN/GLOBULIN RATIO (test code = 1759-0) 2.2 (calc) See_Comment N [Automated message] The system which generated this result transmitted reference range: 1.0-2.5 (calc). The reference range was not used to interpret this result as normal/abnormal. ALKALINE PHOSPHATASE (test code = 6768-6) 50 U/L See_Comment N [Automated message] The system which generated this result transmitted reference range: 37-153 U/L. The reference range was not used to interpret this result as normal/abnormal. ALT (test code = 1742-6) 15 U/L See_Comment N [Automated messa ge] The system which generated this result transmitted reference range: 6-29 U/L. The reference range was not used to interpret this result as normal/abnormal. AST (test code = 1920-8) 22 U/L See_Comment N [Automated messa ge] The system which generated this result transmitted reference range: 10-35 U/L. The reference range was not used to interpret this result as normal/abnormal. BILIRUBIN, TOTAL (test code = 1975-2) 0.7 mg/dL See_Comment N [Automated messa ge] The system which generated this result transmitted reference range: 0.2-1.2 mg/dL. The reference range was not used to interpret this result as normal/abnormal. BUN/CREATININE RATIO (test code = 3097-3) SEE NOTE: (calc) See_Comment [Automated message] The system which generated this result transmitted reference range: 6-22 (calc). The reference range was not used to interpret this result as normal/abnormal. CALCIUM (test code = 90900-4) 9.1 mg/dL See_Comment N [Automated messa ge] The system which generated this result transmitted reference range: 8.6-10.4 mg/dL. The reference range was not used to interpret this result as normal/abnormal. CARBON DIOXIDE (test code = 2027-9) 24 mmol/L See_Comment N [Automated messa ge] The system which generated this result transmitted reference range: 20-32 mmol/L. The reference range was not used to interpret this result as normal/abnormal. CHLORIDE (test code = 5-0) 102 mmol/L See_Comment N [Automated messa ge] The system which generated this result transmitted reference range: 98-110 mmol/L. The reference range was not used to interpret this result as normal/abnormal. CREATININE (test code = 2160-0) 0.80 mg/dL See_Comment N [Automated messa ge] The system which generated this result transmitted reference range: 0.50-1.05 mg/dL. The reference range was not used to interpret this result as normal/abnormal. GLOBULIN (test code = 13657-6) 2.0 g/dL (calc) See_Comment N [Automated message] The system which generated this result transmitted reference range: 1.9-3.7 g/dL (calc). The reference range was not used to interpret this result as normal/abnormal. GLUCOSE (test code = 2345-7) 90 mg/dL See_Comment N [Automated [employer]] The system which generated this result transmitted reference range: 65-99 mg/dL. The reference range was not used to interpret this result as normal/abnormal. POTASSIUM (test code = 2823-3) 4.4 mmol/L See_Comment N [Automated [employer]] The system which generated this result transmitted reference range: 3.5-5.3 mmol/L. The reference range was not used to interpret this result as normal/abnormal. PROTEIN, TOTAL (test code = 2885-2) 6.4 g/dL See_Comment N [Automated [employer]] The system which generated this result transmitted reference range: 6.1-8.1 g/dL. The reference range was not used to interpret this result as normal/abnormal. SODIUM (test code = 2951-2) 137 mmol/L See_Comment N [Automated [employer]] The system which generated this result transmitted reference range: 135-146 mmol/L. The reference range was not used to interpret this result as normal/abnormal. UREA NITROGEN (BUN) (test code = 3094-0) 19 mg/dL See_Comment N [Automated message] The system which generated this result transmitted reference range: 7-25 mg/dL. The reference range was not used to interpret this result as normal/abnormal. COMPREHENSIVE METABOLIC PANEL(CMP)2023-03-23 00:00:00* Test Item Value Reference Range Interpretation Comme nts ALBUMIN (test code = 1751-7) 4.5 g/dL See_Comment N [Automated [employer]] The system which generated this result transmitted reference range: 3.6-5.1 g/dL. The reference range was not used to interpret this result as normal/abnormal. ALBUMIN/GLOBULIN RATIO (test code = 1759-0) 2.0 (calc) See_Comment N [Automated [employer]] The system which generated this result transmitted reference range: 1.0-2.5 (calc). The reference range was not used to interpret this result as normal/abnormal. ALKALINE PHOSPHATASE (test code = 6768-6) 359 U/L See_Comment H [Automated message] The system which generated this result transmitted reference range: 37-153 U/L. The reference range was not used to interpret this result as normal/abnormal. ALT (test code = 1742-6) 16 U/L See_Comment N [Automated messa ge] The system which generated this result transmitted reference range: 6-29 U/L. The reference range was not used to interpret this result as normal/abnormal. AST (test code = 1920-8) 18 U/L See_Comment N [Automated messa ge] The system which generated this result transmitted reference range: 10-35 U/L. The reference range was not used to interpret this result as normal/abnormal. BILIRUBIN, TOTAL (test code = 1974-) 0.8 mg/dL See_Comment N [Automated message] The system which generated this result transmitted reference range: 0.2-1.2 mg/dL. The reference range was not used to interpret this result as normal/abnormal. BUN/CREATININE RATIO (test code = 3097-3) SEE NOTE: (calc) See_Comment [Automated message] The system which generated this result transmitted reference range: 6-22 (calc). The reference range was not used to interpret this result as normal/abnormal. CALCIUM (test code = 48740-3) 9.6 mg/dL See_Comment N [Automated messa ge] The system which generated this result transmitted reference range: 8.6-10.4 mg/dL. The reference range was not used to interpret this result as normal/abnormal. CARBON DIOXIDE (test code = 2027-9) 29 mmol/L See_Comment N [Automated messa ge] The system which generated this result transmitted reference range: 20-32 mmol/L. The reference range was not used to interpret this result as normal/abnormal. CHLORIDE (test code = 5-0) 99 mmol/L See_Comment N [Automated messa ge] The system which generated this result transmitted reference range: 98-110 mmol/L. The reference range was not used to interpret this result as normal/abnormal. CREATININE (test code = 2160-0) 0.81 mg/dL See_Comment N [Automated messa ge] The system which generated this result transmitted reference range: 0.50-1.05 mg/dL. The reference range was not used to interpret this result as normal/abnormal. GLOBULIN (test code = 19440-9) 2.2 g/dL (calc) See_Comment N [Automated message] The system which generated this result transmitted reference range: 1.9-3.7 g/dL (calc). The reference range was not used to interpret this result as normal/abnormal. GLUCOSE (test code = 2345-7) 86 mg/dL See_Comment N [Automated messa [employer]] The system which generated this result transmitted reference range: 65-99 mg/dL. The reference range was not used to interpret this result as normal/abnormal. POTASSIUM (test code = 2823-3) 5.1 mmol/L See_Comment N [Automated messa ge] The system which generated this result transmitted reference range: 3.5-5.3 mmol/L. The reference range was not used to interpret this result as normal/abnormal. PROTEIN, TOTAL (test code = 2885-2) 6.7 g/dL See_Comment N [Automated messa [employer]] The system which generated this result transmitted reference range: 6.1-8.1 g/dL. The reference range was not used to interpret this result as normal/abnormal. SODIUM (test code = 2951-2) 135 mmol/L See_Comment N [Automated messa ge] The system which generated this result transmitted reference range: 135-146 mmol/L. The reference range was not used to interpret this result as normal/abnormal. UREA NITROGEN (BUN) (test code = 3094-0) 22 mg/dL See_Comment N [Automated message] The system which generated this result transmitted reference range: 7-25 mg/dL. The reference range was not used to interpret this result as normal/abnormal. DEXA, BONE DENSITY AXIAL SKELEDEXA, BONE DENSITY AXIAL ECUXR6R SCR JENARO BILAT W/CAD3D SCR JENARO BILAT W/CAD Consult Notes Date/Time Note Provider Source 2025-02-12 14:43:55 Associated Order(s): IP CONSULT TO CASE MANAGEMENT Reason For Consult Inpatient rehab referral CM educated and provided rehab choices to pt and family at bedside. Pt and family [facility] as 1st choice. Referrals sent out on [facility]Port to both [facility] and [facility]. Crystal MACKEY, operating systems programmer [phone] Keiko Barnett 2025-02-11 21:38:05 Neurocritical Care Consultation Note Consulted by NSGY for medical mgmt History Of Present Illness Odilia Pink, 69 y.o. 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 he patient reports a sudden onset of a clumsiness R hand, which she discovered while applying makeup about 9 months ago. She describes the tremor as appearing "all of a sudden," noting that it was not present one day and then visible the next. Patient denies any prior symptoms or changes in facial appearance that would have indicated the presence of the lesion before its sudden appearance. 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 The imaging showed calcium deposits, hemorrhage, and surrounding swelling. A previous CT scan from 2021 did not show this lesion. Nsgy following and pt underwent left craniotomy for transsylvian debulking of the mass. Patient is being admitted to NVICU for post op monitoring. Interval Events: 02/11: POD 0: L crani for transsylvian debulking of cerebellar mass. [facility] Past Medical History has a past medical history of Anxiety (2007), Depression, Elevated alkaline phosphatase level (01/22/2025), Encntr for general adult medical exam w/o abnormal findings (01/22/2025), Hypertension, Memory loss, and Statin not tolerated (01/22/2025). Surgical History has a past surgical history that includes Hysterectomy; Appendectomy; and Breast lumpectomy. Family History Family History: Problem Relation Name Age of Onset Colon cancer Mother Keyonna Messer Restless legs syndrome Mother Keyonna Messer 40 - 49 Social History Social History Tobacco Use Smoking status: Former Current packs/day: 0.00 Average packs/day: 1.5 packs/day for 45.0 years (67.5 ttl pk-yrs) Types: Cigarettes Start date: 05/15/1969 Quit date: 03/03/1995 Years since quittin.9 Passive exposure: Past Smokeless tobacco: Never Vaping Use Vaping status: Never Used Substance Use Topics Alcohol use: Not Currently Drug use: Yes Types: Marijuana Allergies Patient has no known allergies. Home Medications Facility-Administered Medications Prior to Admission Medication Dose Route Frequency Provider Last Rate Last Admin [COMPLETED] gadoterate Meglumine (Clariscan, Dotarem) injection 13 mL 0.2 mL/kg Intravenous Once in imaging Earnest Grey MD 13 mL at 02/10/25 1440 sodium chloride (NS) 0.9 % flush 3 mL 3 mL Intravenous PRN Earnest Grey MD 20 mL at 02/10/25 1441 Medications Prior to Admission Medication Sig Dispense Refill Last Dose/Taking buPROPion SR (Wellbutrin SR) 150 MG 12 hr tablet Take 2 tablets by mouth 1 time each day. 02/10/2025 hydrALAZINE (Apresoline) 25 MG tablet Take 1 tablet by mouth in the morning and 1 tablet in the evening. 02/10/2025 Morning lisinopril-hydroCHLOROthiazi de 20-12.5 MG tablet Take 1 tablet by mouth 1 time each day. 02/10/2025 Morning Multiple Vitamin (multivitamin) tablet Take 1 tablet by mouth 1 time each day. Past Month Repatha SureClick 140 MG/ML Subcutaneous Solution Auto-injector Inject 140 mg under the skin every 14 days. Past Month sertraline (Zoloft) 25 MG tablet Take 1 tablet by mouth 1 time each day. 02/10/2025 aspirin EC 81 MG EC tablet Take 81 mg by mouth 1 time each day. 02/07/2025 metFORMIN (Glucophage) 500 MG tablet Take 500 mg by mouth in the morning and 500 mg at noon and 500 mg in the evening. 02/08/2025 Review of Systems ROS all negative except those noted in HPI Physical Exam pre-admit mRS: Score 0: No symptoms at all. Further clinical exam documented under Impression and Plan by systems. ======= ASSESSMENT AND PLAN Odilia Pink, 69 y.o. female with PMH of HTN, DM, Carotid stent, CAD, and depression, who presented on 02/11/2025 for left craniotomy for debulking of left basal ganglia mass. NEUROLOGIC S/p L craniotomy for debulking of left basal ganglia mass Depression, present on admission Neuro Exam: GCS: E4 Eyes open spontaneously, V5 Speech oriented, M6 Follows commands MS: AAO x4, following commands, speech fluent, no dysarthria, naming intact, no neglect CN: L pupil 3, R pupil 3, EOMI, VFF, face symmetric Motor: No drift, 5/5 strength throughout Gait: deferred POD 0 (date 02/11) of L craniotomy for debulking of left basal ganglia mass MRI brain w/wo Hemorrhagic mass lesion with multiple areas of ring enhancement centered in the left basal ganglia with extension to surrounding tissues, consistent with high-grade glial neoplasm or metastasis. Post-op MRI at midnight Pathology report pending No coagulopathy on labs or per history S/p dexamethasone 10mg load, continue 4mg q12h S/p Keppra 1gm load; continue 500mg q12h for sz ppx No sedation PT/OT/MANAGER FACILITY as indicated Home Meds, cont: buPROPion SR 150mg q12h Zoloft 25mg every day ======= CARDIOVASCULAR HTN, present on admission CAD, present on admission Carotid stent, present on admission CV Exam: Temp: [37.1 ?C (98.7 ?F)] 37.1 ?C (98.7 ?F) Heart Rate: [81] 81 Resp: [16] 16 BP: (168)/(79) 168/79 VS Parameters: SBP 100-150 PRN hydralazine, labetalol Cardene gtt, cont to wean Home Meds Hydralazine 25mg BID Lisinopril 20mg every day Hydrochlorothiazide 12.5mg every day Trop ordered EKG ordered L radial a-line (02/11/25), can DC in AM ======= PULMONARY Pulm Exam: CTAB ABG Results from last 7 days Lab Units 02/11/25 1108 POC PH, ARTERIAL 7.42 POC PCO2, ARTERIAL mmHg 34* POC PO2, ARTERIAL mmHg 220 POC HCO3, ARTERIAL mMol/L 22 POC SO2, ARTERIAL (CALC) % 99.8 POC BASE EXCESS, ARTERIAL mMol/L -2 On o2 via NC @ 2 L, wean to room air O2 sat >90 goal ======= GASTROINTESTINAL GI Exam: soft, non-distended, present bowl sounds Nutrition: Current Order: Adult Diet Regular GI route: PO GI ppx: Pepcid, while on steroids bowel regimen: docusate, senna last BM [facility] MANAGER Emend x 1 given PACU Lab Results Component Value Date ALT 21 02/10/2025 AST 28 02/10/2025 Alkaline Phosphatase 58 02/10/2025 Bilirubin Total 0.81 02/10/2025 ======= RENAL Intake/Output Summary (Last 24 hours) at 02/11/2025 1347 Last data filed at 02/11/2025 1335 Gross per 24 hour Intake 3500 ml Output 975 ml Net 2525 ml Urine Output: 975mL in 24hrs .6 mL/kg/hr (last 24hrs) Results from last 7 days Lab Units 02/11/25 1108 02/11/25 0901 02/10/25 1131 POC SODIUM, ARTERIAL mEq/L 139 133* -- SODIUM mEq/L -- -- 143 POC POTASSIUM, ARTERIAL mEq/L 3.5 3.2* -- POTASSIUM mEq/L -- -- 4.0 POC CHLORIDE mEq/L 111* 108 -- CHLORIDE mEq/L -- -- 106 CO2 mEq/L -- -- 26.6 BUN mg/dL -- -- 10 CREATININE mg/dL -- -- 0.84 MAGNESIUM mg/dL -- -- 2.02 PHOSPHORUS mg/dL -- -- 2.7 CALCIUM mg/dL -- -- 9.4 POC IONIZED CALCIUM, ARTERIAL mMol/L 1.13 0.99* -- POC IONIZED CALCIUM, ARTERIAL (7.4) mmol/L 1.14 0.99* -- ICU electrolyte replacement protocol Isolyte 75 ml/hr while NPO sandeep present for UOP monitoring in the surgical patient, can DC in AM ======= INFECTIOUS DISEASE Temp (24hrs), Av.1 ?C (98.7 ?F), Min:37.1 ?C (98.7 ?F), Max:37.1 ?C (98.7 ?F) Results from last 7 days Lab Units 02/10/25 1131 WBC 10*3/uL 7.19 Monitor trend fever curve and WBC no ABX indicated ======= HEMATOLOGIC Results from last 7 days Lab Units 02/10/25 1131 HEMOGLOBIN g/dL 12.9 PLATELETS 10*3/uL 234 INR 0.96 PTT Seconds 25.0 No coagulopathy on labs or per history DVT ppx: SCDs; hold sc heparin till cleared with NSGY ======= ENDOCRINE Results from last 7 days Lab Units 02/11/25 1108 02/11/25 0901 02/10/25 1131 POC GLUCOSE, ARTERIAL mg/dL 105* 106* -- GLUCOSE mg/dL -- -- 103* BG goal 80-180 medium-dose ISS Home Meds Metformin 500 BID -- holding ======= MUSCULOSKELETAL AND INTEGUMENTARY Skin Exam: warm, dry, intact ======= Code Status: Full Code Disposition: ICU [facility] Neurocritical Care NvICU Team ICU Ph #[phone] The patient was seen and examined by me at a separate time from the MARCELO. I also reviewed the documentation and agree with the documented findings and plan of care. Additionally, I was directly involved in the management of the patient and provided the substantive portion of this visit, including examining the patient, obtaining history, and medical decision-making. Neurology Physician [facility] History and Physical Notes Date/Time Note Provider Source 2025-02-11 07:01:11 HPI: The patient is a 69-year-old female presenting for follow-up on tremor. The patient reports a sudden onset of a clumsiness R hand, which she discovered while applying makeup about 9 months ago. She describes the tremor as appearing "all of a sudden," noting that it was not present one day and then visible the next. She denies any prior symptoms or changes in facial appearance that would have indicated the presence of the lesion before its sudden appearance. 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 The imaging showed calcium deposits, hemorrhage, and surrounding swelling. A previous CT scan from 2021 did not show this lesion. Allergies as of 01/22/2025 (No Known Allergies) has a current medication list which includes the following prescription(s): aspirin ec, bupropion sr, hydralazine, lisinopril-hydrochlorothiazide, metformin, multivitamin, repatha sureclick, and sertraline. Answers submitted by the patient for this visit: ESTABLISHED NEUROLOGY on 01/22/2025 10:[address] Wild Armando MD Review of Systems (Submitted on 01/20/2025) Speech difficulty: Yes Tremors: Yes Weakness: Yes Neurological Exam Mental Status Awake and alert. Speech is normal. Cranial Nerves CN II: Visual acuity is normal. CN III, IV, : Extraocular movements intact bilaterally. Pupils equal round and reactive to light bilaterally. CN VII: Right: There is central facial weakness. Mild. CN XII: Tongue midline without atrophy or fasciculations. Motor Clumsiness and dyspraxia on the right with an ataxic tremor component. Sensory Light touch is normal in upper and lower extremities. Temperature is normal in upper and lower extremities. Vibration is normal in upper and lower extremities. Reflexes Deep tendon reflexes: Brisk, Symmetric. Gait Casual gait: Reduced right arm swing. Imaging: (01/08) MRI Brain (non-contrast): 2 cm lesion in the left basal ganglia with hemorrhage and surrounding edema (2021) CT Head: No abnormalities - CT Head: Partially calcified mass in the left basal ganglia measuring 2 cm with hemorrhage, surrounding edema, and some enhancement; possible second smaller enhancing lesion - Chest x-ray: Normal Assessment & Plan 69 yr old F with left brain tumor Plan: OR today for left craniotomy for transsylvian debulking of the mass Cosigned by Earnest Grey MD at 02/13/2025 9:51 AM CDT Neurosurgery [facility] Procedure Notes Date/Time Note Provider Source 2025-02-11 00:00:00 PATIENT NAME: ODILIA PINK CONTACT SERIAL NUMBER: [id number] DATE OF OPERATION/PROCEDURE: 02/11/2025 PREOPERATIVE DIAGNOSIS: 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 OPERATIONS: 1. Left pterional craniotomy. 2. Transsylvian approach. 3. Partial resection of tumor. 4. Intraoperative subcortical stimulation. 5. Stereotactic guidance for navigation. DETAILS OF PROCEDURE: With the patient intubated under general anesthesia, placed supine with the head turned to the right in [place]. We registered the stealth navigation for stereotactic guidance to the depth of the tumor. We shaved, scrubbed, and draped and marked slightly? shaped incision on the left side in the pterion area. We went submuscular, placed fishhooks and elevated the frontotemporal bone flap and that tacked the dura. We opened the dura and split the fissure extensively crossing over large bridging crossing vein. We used the stealth to decide which corridor in the sylvian fissure to reach the insula. We exposed the insula and dissected into the insular sulcus and identified the M2 branches. We then identified a suitable area in the insular cortex that was less than 5 mm from the outer surface of the tumor and we entered there and within a few mm encountered typical shultz infiltrative glioma tissue. There was also a cyst with yellow fluid in the center of it. At 1st, the tumor was very bloody, but it was possible to partially debulk it and achieve good coagulation. As I continued the piecemeal removal, I used a ball stimulator for subcortical mapping and used a 15 and 10 and 5 milliamps to stay safe and I only encountered 1 time at 15 mm setting some arm and leg, but the never went that far with the dissection. I achieved partial resection of the tumor with excellent hemostasis. At the end, the motor evoked potential were perfect and SSEP and there was no stimulation of subcortical tissue within 5 milliampere or 5 mm distance. I proceeded to close in a non-watertight manner, augmented it with DuraMatrix and placed the bone flap with plates and screws and closed the muscle and galea with Vicryl running locked 3-0 Ethilon to the skin. The patient tolerated the procedure very well. Dictated by: EARNEST GREY MD [facility] / [facility] T [facility] Notes Date/Time Note Provider Source Referral ID Status Reason Start Date Expiration Date Visits Re quested Visits Authorized [id number] Closed 02/10/2025 02/05/2026 1 1 [facility]2025-10-03 19:56:33* Auth/Cert (Routine) Specialty Diagnoses / Procedures Referred By Contac t Referred To Contact Diagnoses Malignant neoplasm of brain, unspecified Neoplasm of the brain Procedures OK CRNEC TREPH BONE FLAP CRNOT EXC BRAIN TUMOR STTL OK CRNEC TREPH BONE FLAP CRNOT EXC/FENEST CYST STTL OK STRTCTC CPTR ASSTD PX CRANIAL INTRADURAL OK MICROSURG TQS REQ USE OPERATING MICROSCOPE OK FUNCJAL RUBI&SUBCORT MAPG PHYS/QHP ATTND INIT HR LEFT CRANIOTOMY WITH TRANSSYLVIAN-TRANSINSULAR APPROACH FOR TUMOR DEBULKING WITH SOMATOSENSORY EVOKED POTENTIAL, MOTOR EVOKED POTENTIAL, SUBCORTICAL MAPPING AND STEALTH NAVIGATION LEFT CRANIOTOMY WITH TRANSSYLVIAN-TRANSINSULAR APPROACH FOR TUMOR DEBULKING WITH SOMATOSENSORY EVOKED POTENTIAL, MOTOR EVOKED POTENTIAL, SUBCORTICAL MAPPING AND STEALTH NAVIGATION LEFT CRANIOTOMY WITH TRANSSYLVIAN-TRANSINSULAR APPROACH FOR TUMOR DEBULKING WITH SOMATOSENSORY EVOKED POTENTIAL, MOTOR EVOKED POTENTIAL, SUBCORTICAL MAPPING AND STEALTH NAVIGATION LEFT CRANIOTOMY WITH TRANSSYLVIAN-TRANSINSULAR APPROACH FOR TUMOR DEBULKING WITH SOMATOSENSORY EVOKED POTENTIAL, MOTOR EVOKED POTENTIAL, SUBCORTICAL MAPPING AND STEALTH NAVIGATION LEFT CRANIOTOMY WITH TRANSSYLVIAN-TRANSINSULAR APPROACH FOR TUMOR DEBULKING WITH SOMATOSENSORY EVOKED POTENTIAL, MOTOR EVOKED POTENTIAL, SUBCORTICAL MAPPING AND STEALTH NAVIGATION Earnest Grey MD [address] [facility] [address] [place] [address] Phone: tel: fax:[phone] Referral ID Status Reason Start Date Expiration Date Visits Re quested Visits Authorized [id number] 02/07/2025 1 1 [id number] 19:56:33 [id number] 19:56:33* AUDIT-C Score Answer Date of Assessment Author 0 02/11/2025 9:40 PM CDT Maico Pickard, [place] * * Calculated C-SSRS Risk Score (Lifetime/Recent) Answer Date of Assessment Author No Risk Indicated 02/11/2025 9:24 PM CDT Maico Pickard RN * Jarratt Suicide Severity Rating Scale (Screener/Recent Self-Report) Question Answer Date of Assessment Author 1. Wish to be (Past 1 Month) No 02/11/2025 9:24 PM CDT Micheal Pickard RN 2. Non-Specific Active Suici saumya Thoughts (Past 1 Month) No 02/11/2025 9:24 PM CDT Harrison Pickard RN 6. Suicidal Behavior (Lifetime) No 9:24 PM CDT Maico Pickard RN [id number] 19:56:33* Salma Lin - 02/14/2025 3:40 PM CDT 02/14/25 1538 Discharge Planning Does the patient need discharge transport arranged? Yes Has discharge transport been arranged? Yes Anticipated Transportation Needed [facility] TRIP#[id number] What day is the transport expected? 02/14/25 What time is the transport expected? 1855 Discharge Planning Comments [facility] Discharge Planning Status Complete * Crystal Silver - 02/14/2025 3:34 PM CDT Final Discharge Disposition: Inpatient Rehab Inpatient Rehab Facility (IRF) MOT Received Date and Time: 02/14/25 3:18 PM Received From: [facility] Name: [facility] Address: [address] [place] [address]., [place] [address] Room Number: 504 Nursing Unit for Report: [phone] Accepting MD: Dr. Pb Jiang Accepting Aircraft Sheet Metal Mechanic: Dr. Amari Meade Referral Date: 02/12/25 Referral Time: 1439 Ambulance Arrangements Pt/family's ambulance choice: [facility] ([phone]/ [phone]) LOS: BLS PCS Form Completed (for Medicare Patients): Yes Please call [facility] / [phone] for delays or any transportation issue. Pickup Date: 02/14/25 Pickup Time: 1900 Notification Patient - Yes Family - Devan Pink (spouse) Primary MD/Primary Team Primary nurse - Nate Poole MOT completed and placed on chart/given to primary nurse. Please call After-Hours for discharge issues after 1700. Crystal MACKEY, operating systems programmer [phone] * Mariam Nino, OT - 02/14/2025 8:46 AM CDT Treatment Session Note Patient Name: Odilia Pink Today's Date: 02/14/2025 Preferred Language: American Assessment & Plan Assessment: Pt is progressing with OOB mobility, and ambulating further distances with a RW and Min A. Pts balance still impaired paired with some dizziness. Pt is able to complete toileting tasks with Mod A and hand washing with Min A. Pt is limited by activity tolerance, balance, dizziness, global strength, ADL completion, and safety awareness. Pt will continue to benefit from acute OT services to address deficits. Precautions: UE Weight Bearing Status: FWB LE Weight Bearing Status: FWB Medical Precautions: Standard; Fall Plan: Treatment Plan/Goals Established with Patient/Caregiver: Yes OT Planned Treatments: Activities of Daily Living, Balance training, Coordination, Neuromuscular reeducation, Orthotic, Safety education, Therapeutic activities, Therapeutic exercises OT Plan: Skilled OT OT Frequency: 2-4 times per week until discharge OT Duration: Discharge Subjective Pt stated, "I would like to try and use the toilet" Pain: PRE-therapy session- Pain Assessment: 0-10 Pain Rating (0-10): 0 Pain Intervention: none needed POST-therapy session- Pain Assessment: 0-10 Pain Rating (0-10): 0 Pain Intervention: none needed Objective Vital Signs: Blood pressure 159/90, pulse 66, temperature 36.9 ?C (98.5 ?F), resp. rate 16, height 1.575 m (5' 2"), weight 68 kg (149 lb 14.6 oz), SpO2 98%. Cognition: Overall Cognitive Status: Within Functional Limits Behavior/Cognition: Alert, Cooperative Orientation Level: Oriented X4 General Visit Information: Self Care (ADL): Self Care/Home Management (ADLs) Time Entry: 13 Grooming Assistance: Supervision/touching assistance LE Dressing Assistance: Partial/Mod assistance Toileting Assistance: Partial/Mod assistance ADL Comments: Pt ambulated to the toilet with a RW Min a and t/f to toilet with Min A. Prior to t/f, pt doffed underwear with Mod A due to RSW. Pt completed pericare with Min A TreatmentSelf-Care: Self Care/Home Management (ADLs) Time Entry: 13 Grooming Assistance: Supervision/touching assistance LE Dressing Assistance: Partial/Mod assistance Toileting Assistance: Partial/Mod assistance ADL Comments: Pt ambulated to the toilet with a RW Min a and t/f to toilet with Min A. Prior to t/f, pt doffed underwear with Mod A due to RSW. Pt completed pericare with Min A Bed Mobility: Bed Mobility 1Level of Assistance 1: Supervision/touching assistance Bed Mobility To/From: Supine to sit on EOB Assistive Devices And Adaptive Equipments: Bed rail Bed Mobility 2 Level of Assistance 2: Supervision/touching assistance Bed Mobility To/From: Sitting EOB to supine Assistive Devices And Adaptive Equipments: No device Transfers: Transfer 1Technique 1: Stand step Level of Assistance 1: Partial/Mod assistance Trials/Comments 1: Min A Transfer To/From: Hjf-ih-Ahfdb/Pcsau-lm-Xpc Assistive Devices And Adaptive Equipments: Walker, front-wheeled Transfers 2 Technique 2: Via walking Level of Assistance 2: Partial/Mod assistance Trials/Comments 2: Min A Transfer To/From: Bed, Toilet Assistive Devices And Adaptive Equipments: Walker, front-wheeled Therapeutic ActivityTherapeutic Activity Time Entry: 15 Therapeutic Activity 1: Pt agreeable to therapy session. COmpleted bed mob to the EOB with SBA. Sitting EOb for acclimation. Pt t/f STS with Min A and with a RW, pt ambulated a lap around the unit with Min A due to RUE hand director financial planning loosening on RW and 5 small LOB episodes due to steps. Pt then ambulated to the toilet Min A and see self care not for all ADLs in bathroom. Pt then returned to the bed with CGA. Pt was left in bed with all needs met, call light within reach, and RN notified. AM-PAC Daily Activity:Putting on and taking off regular lower body clothing: A Lot Bathing (including washing, rinsing, drying): A Lot Toileting, which includes using toilet, bedpan or urinal: A Lot Putting on and taking off regular upper body clothing: A Little Taking care of personal grooming such as brushing teeth: A Little Eating Meals: A Little AM-PAC Daily Activity Raw Score: 15 Patient Education: Education Documentation No documentation found. Education Comments No comments found. Goals:Encounter Goals Encounter Goals (Active) Pt will complete bed to toilet transfer via ambulation with SBA using AE as needed in preparation for household ambulation Start: 02/12/25 Expected End: 02/28/25 Pt will complete oral care at sink in static standing for >3 minutes with SBA Start: 02/12/25 Expected End: 02/28/25 Pt will complete upper and lower body dressing task with SBA using AE as needed. Start: 02/12/25 Expected End: 02/28/25 pt will complete HEP and daily RUE exercises to increased RUE strength and coordination for functional use Start: 02/12/25 Expected End: 02/28/25 Pt will complete a bed to chair transfer with SBA in prep for OOB mobility. Start: 02/12/25 Expected End: 02/28/25 Treatment Note: If this is the last documented treatment, then it will signify discharge from acute care prior to discharge from the therapy service and will serve as the discharge summary. Mariam Nino OT * Libra Machado RN - 02/14/2025 7:41 AM CDT 02/14/25 0700 Discharge Planning Patient expects to be discharged to: [facility] Expected Discharge Disposition IRF Discharge Planning Comments Updated clinicals sent. Liaison notified. Pending auth day 2. Patient Med clear. Discharge Planning Status In Progress Libra Machado RN, BSN, CM operating systems programmer - Neuro Service Line * Flora Pierson NP - 02/14/2025 7:14 AM CDT Neurosurgery progress note Subjective No acute events overnight Recent Vital Signs: 153/83 | 67 | 36.7 ?C (98.1 ?F) | 16 | 157.5 cm (5' 2") | 68 kg (149 lb 14.6 oz) | Body mass index is 27.42 kg/m?. BP & Temp Min/Max Last 24 Hours: BP Min: 135/65 Min taken time: 02/13/25 2310 Max: 194/87 Max taken time: 02/13/25 1400 | Temp Av.7 ?C (98 ?F) Min: 36 ?C (96.8 ?F) Min taken time: 02/13/25 1100 Max: 36.9 ?C (98.5 ?F) Max taken time: 02/13/25 2310 MENTAL STATUS: - Eye Opening: Spontaneously (4) Verbal: Oriented (5) Best Motor: Follows Commands (6) - GCS: 15 - Orientation: Alert & Oriented x 3 CRANIAL NERVES: - Pupil OD Size/Speed: 3 brisk - Pupil OS Size/Speed: 3 brisk - CN Deficits: Remaining II - XII Intact Right facial droop MOTOR: - RUE: Follows Commands (6) 4-/5 - RLE: Follows Commands (6) 4+/5 - LUE: Follows Commands (6) 5/5 - LLE: Follows Commands (6) 5/5 SENSORY: - No sensory deficits noted CEREBELLAR EXAM: - No dysmetria === 02/10/25 === MRI BRAIN W AND WO IV CONTRAST - Impression -Hemorrhagic mass lesion with multiple areas of ring enhancement centered in the left basal ganglia with extension to surrounding tissues, consistent with high-grade glial neoplasm or metastasis. Images adequate for localization. Report finalized by: Yinka Esquivel MD 02/11/2025 10:04No results found for this or any previous visit from the past 365 days. 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 PMH of HTN, DM, Carotid stent, CAD, and depression POD # 3 - right sided weakness improving- Dexamethasone 4 mg q12hrs/ GI ppx - Keppra 500 mg BID for seizure ppx - post op MRI reviewed, expected post changes, partial resection - Continue current pain regimen, pain well controlled - Tolerating diet well - Glucose well controlled with SSI - Aggressive bowel regimen with senna, MiraLAX, and bisacodyl suppository as needed. LBM: 02/13/2025 - SQH for DVT ppx - OOB for all meals and ambulate x5 per day. If the patient cannot ambulate, please have him sitting in the chair 3 times a day - PT/OT - rehab referral made - medically cleared for discharge - If you have NSGY questions or concerns and it is Monday-Monday 6:00 am - 2:00 pm, please page [phone]. If outside of these hours then please page [phone] with NSGY questions or concerns. Flora MACKEY-BCDept of Neurosurgery * Libra Machado RN - 02/13/2025 10:46 AM CDT 02/13/25 1000 Discharge Planning Patient expects to be discharged to: [facility] Expected Discharge Disposition IRF Discharge Planning Comments Choice is [facility]. Referral booked. Pending Auth. Discharge Planning Status In Progress CASE MANAGEMENT ROUTINE DISCHARGE PLAN NOTE LOS: 2 Barriers to Discharge: Post-op clearance, IV Dex, DISCHARGE PLAN A: [facility] DISCHARGE PLAN B: Home with TRANSPORT ARRANGEMENTS AT DC: Private Vehicle HENNA: 1-2 days Libra Machado RN, BSN, CM operating systems programmer - Neuro Service Line * Jacqui Morrow, PT - 02/13/2025 9:05 AM CDT Treatment Session Note Patient Name: Odliia Pink Today's Date: 02/13/2025 Preferred Language: American Assessment & Plan Assessment: PT Assessment: Pt tolerated increased mobility and required less assistance for OOB activities. Remains with right sided weakness(RUE weakness > RLE). Pt is motivated to participate with skilled PT and currently requires MIN/MOD A for mobility due to weakness, poor coordination, ataxia, and impaired balance. Benefits from further skilled PT to address deficits. Medical Staff Made Aware: Yes Medical Staff Made Aware Details: Call light in reach, Nurse informed, Lap belt applied, All lines/leads intact, Vital signs stable Plan: PT Frequency: 3-5 times per week until discharge PT Recommended Transfer Status: Assistive equipment (Comment) Subjective "I want to get better" Current Problem: 69 y.o. 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 he patient reports a sudden onset of a clumsiness R hand, which she discovered while applying makeup about 9 months ago. She describes the tremor as appearing "all of a sudden," noting that it was not present one day and then visible the next. Patient denies any prior symptoms or changes in facial appearance that would have indicated the presence of the lesion before its sudden appearance. 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 The imaging showed calcium deposits, hemorrhage, and surrounding swelling. A previous CT scan from 2021 did not show this lesion. Nsgy following and pt underwent left craniotomy for transsylvian debulking of the mass. Patient is being admitted to [facility] for post op monitoring. Interval Events: 02/11: POD 0: L crani for transsylvian debulking of subcorticalr mass. Patient arrived to unit. Cardene ongoing for bp mgmt 02/12: Cardene weaned off, pending post op MRI b 02/13: Neurologically stable. Precautions: Medical Precautions: Standard; Fall Pain: PRE-therapy session- Pain Assessment: 0-10 Pain Rating (0-10): 0 Pain Intervention: none needed POST-therapy session- Pain Assessment: 0-10 Pain Rating (0-10): 0 Pain Intervention: none needed Objective General Visit Information: General Location: Bedside Additional Individuals Present: No Cognition Behavior/Cognition: Alert, Cooperative, Pleasant mood Orientation Level: Oriented X4 Treatment Therapeutic exercise: Therapeutic Exercise Time Entry: 10 Therapeutic Exercise Activity 1: Pt completed supine and seated LE therex. RLE strength improved from initial eval Therapeutic activity: Therapeutic Activity Therapeutic Activity Time Entry: 1 Therapeutic Activity 1: RN cleared pt for participation. Pt was supine upon arrival. VSS. Pt was agreeable to therapy and prepared for mobility. Transferred to EOB- cues given for safety due to impulsivity. Stood to RW and proceeded to hallway for gait training(see gait note) Returned to room and transferred to bedside chair. Lines reconnected- VSS. RN made aware Bed Mobility: Bed Mobility 1: Level of Assistance 1: Supervision/touching assistance Bed Mobility Comments 1: CGA Bed Mobility To/From: Supine to sit on EOB Assistive Devices And Adaptive Equipments: Bed rail Transfers: Transfers 1: Level of Assistance 1: Partial/Mod assistance Trials/Comments 1: MIN A and verbal cues for safety awareness due to impulsivity Transfer To/From: Bvy-ch-Azfhk/Xemny-sg-Oav Assistive Devices And Adaptive Equipments: Walker, front-wheeled Transfers 2: Technique 2: Via walking Level of Assistance 2: Partial/Mod assistance Trials/Comments 2: MOD A for stability. Transfer To/From: Chair Assistive Devices And Adaptive Equipments: Walker, front-wheeled Gait training: Gait Training Time Entry: 15 Gait Training Activity 1: Distance (enter in feet): 50, 150', Gait Training Activity 1: Indoor surface Assistive Devices And Adaptive Equipments: Walker, front-wheeled Level of Assistance 1: Partial/Mod assistance Gait Training Activity 1 Comment: Pt with dynamic gait instabilities and requires cues for sequencing, weight shifting, and midline orientation AM-PAC Basic Mobility: AM-PAC Basic Mobility Inpatient Turning in bed without bedrails: A Little Lying on back to sitting on edge of flat bed: A Little Bed to chair: A Little Standing up from chair: A Little Walk in room: A Lot Climbing 3-5 stairs: A Lot Mobility Inpatient Raw Score: 16 JH-HLM Goal: 5 Mobility: Highest Level of Mobility Performed (JH-HLM) JH-HLM Goal: 5 Highest Level of Mobility Performed (JH-HLM): Walked 25 feet or more (i.e. walked outside of room) Patient Education: Education Documentation Physical Therapy Plan of Care, taught by Jacqui Morrow PT at 02/12/2025 4:37 PM. Learner: Family, Patient Readiness: Eager Method: Explanation Response: Verbalizes Understanding Goals: Encounter Goals Encounter Goals (Active) Pt will be indep with bed mobility Start: 02/12/25 Expected End: 03/12/25 Pt will be indep with transfers. Start: 02/12/25 Expected End: 03/12/25 Pt will be indep with ambulation x 150'- LRAD PRN Start: 02/12/25 Expected End: 03/12/25 Patient will ascend and descend a flight of stairs Start: 02/12/25 Expected End: 03/12/25 Treatment Note: If this is the last documented treatment, then it will signify discharge from acute care prior to discharge from the therapy service and will serve as the discharge summary. Jacqui Morrow PT * Flora Pierson NP - 02/13/2025 7:25 AM CDT Neurosurgery progress note Subjective No acute events overnight Recent Vital Signs: 147/76 | 79 | 36.6 ?C (97.9 ?F) | 22 | 157.5 cm (5' 2") | 68 kg (149 lb 14.6 oz) | Body mass index is 27.42 kg/m?. BP & Temp Min/Max Last 24 Hours: BP Min: 128/69 Min taken time: 02/12/25 1400 Max: 154/76 Max taken time: 02/12/25 2200 | Temp Av.6 ?C (97.8 ?F) Min: 36 ?C (96.8 ?F) Min taken time: 02/12/25 1900 Max: 36.9 ?C (98.4 ?F) Max taken time: 02/12/25 1100 MENTAL STATUS: - Eye Opening: Spontaneously (4) Verbal: Oriented (5) Best Motor: Follows Commands (6) - GCS: 15 - Orientation: Alert & Oriented x 3 CRANIAL NERVES: - Pupil OD Size/Speed: 3 brisk - Pupil OS Size/Speed: 3 brisk - CN Deficits: Remaining II - XII Intact Right facial droop MOTOR: - RUE: Follows Commands (6) 4-/5 - RLE: Follows Commands (6) 4+/5 - LUE: Follows Commands (6) 5/5 - LLE: Follows Commands (6) 5/5 SENSORY: - No sensory deficits noted CEREBELLAR EXAM: - No dysmetria === 02/10/25 === MRI BRAIN W AND WO IV CONTRAST - Impression -Hemorrhagic mass lesion with multiple areas of ring enhancement centered in the left basal ganglia with extension to surrounding tissues, consistent with high-grade glial neoplasm or metastasis. Images adequate for localization. Report finalized by: Yinka Esquivel MD 02/11/2025 10:04No results found for this or any previous visit from the past 365 days. 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 PMH of HTN, DM, Carotid stent, CAD, and depression POD # 2 - new right sided weakness post op- Dexamethasone 4 mg q12hrs/ GI ppx - Keppra 500 mg BID for seizure ppx - post op MRI reviewed - Continue current pain regimen, pain well controlled - Tolerating diet well - Glucose well controlled with SSI - Aggressive bowel regimen with senna, MiraLAX, and bisacodyl suppository as needed. LBM: COLLISION CENTER MANAGER - SQH for DVT ppx - OOB for all meals and ambulate x5 per day. If the patient cannot ambulate, please have him sitting in the chair 3 times a day - PT/OT - rehab referral made - transfer to floor - If you have NSGY questions or concerns and it is Monday-Monday 6:00 am - 2:00 pm, please page [phone]. If outside of these hours then please page [phone] with NSGY questions or concerns. Flora Pierson AGACNP-BCDept of Neurosurgery * Alfa Montgomery MD - 02/13/2025 6:59 AM CDT Neurocritical Care Consultation Note Consulted by JENNIFER for medical mgmt History Of Present Illness Odilia Pink, 69 y.o. 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 he patient reports a sudden onset of a clumsiness R hand, which she discovered while applying makeup about 9 months ago. She describes the tremor as appearing "all of a sudden," noting that it was not present one day and then visible the next. Patient denies any prior symptoms or changes in facial appearance that would have indicated the presence of the lesion before its sudden appearance. 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 The imaging showed calcium deposits, hemorrhage, and surrounding swelling. A previous CT scan from 2021 did not show this lesion. Nsgy following and pt underwent left craniotomy for transsylvian debulking of the mass. Patient is being admitted to [facility] for post op monitoring. Interval Events: 02/11: POD 0: L crani for transsylvian debulking of subcorticalr mass. Patient arrived to unit. Cardene ongoing for bp mgmt 02/12: Cardene weaned off, pending post op MRI b 02/13: Neurologically stable. Past Medical History has a past medical history of Anxiety (2007), Depression, Elevated alkaline phosphatase level (01/22/2025), Encntr for general adult medical exam w/o abnormal findings (01/22/2025), Hypertension, Memory loss, and Statin not tolerated (01/22/2025). Surgical History has a past surgical history that includes Hysterectomy; Appendectomy; and Breast lumpectomy. Family History Family History: Problem Relation Name Age of Onset Colon cancer Mother Keyonna Messer Restless legs syndrome Mother Keyonna Messer 40 - 49 Social History Social History Tobacco UseSmoking status: Former Current packs/day: 0.00 Average packs/day: 1.5 packs/day for 45.0 years (67.5 ttl pk-yrs) Types: Cigarettes Start date: 05/15/1969 Quit date: 03/03/1995 Years since quittin.9 Passive exposure: Past Smokeless tobacco: Never Vaping Use Vaping status: Never Used Substance Use Topics Alcohol use: Not Currently Drug use: Yes Types: Marijuana AllergiesPatient has no known allergies. Home MedicationsFacility-Administered Medications Prior to Admission Medication Dose Route Frequency Provider Last Rate Last Admin [COMPLETED] gadoterate Meglumine (Clariscan, Dotarem) injection 13 mL 0.2 mL/kg Intravenous Once in imaging Earnest Grey MD 13 mL at 02/10/25 1440 sodium chloride (NS) 0.9 % flush 3 mL 3 mL Intravenous PRN Earnest Grey MD 20 mL at 02/10/25 1441 Medications Prior to AdmissionMedication Sig Dispense Refill Last Dose/Taking buPROPion SR (Wellbutrin SR) 150 MG 12 hr tablet Take 2 tablets by mouth 1 time each day. 02/10/2025 hydrALAZINE (Apresoline) 25 MG tablet Take 1 tablet by mouth in the morning and 1 tablet in the evening. 02/10/2025 Morning lisinopril-hydroCHLOROthiazide 20-12.5 MG tablet Take 1 tablet by mouth 1 time each day. 02/10/2025 Morning Multiple Vitamin (multivitamin) tablet Take 1 tablet by mouth 1 time each day. Past Month Repatha SureClick 140 MG/ML Subcutaneous Solution Auto-injector Inject 140 mg under the skin every 14 days. Past Month sertraline (Zoloft) 25 MG tablet Take 1 tablet by mouth 1 time each day. 02/10/2025 aspirin EC 81 MG EC tablet Take 81 mg by mouth 1 time each day. 02/07/2025 metFORMIN (Glucophage) 500 MG tablet Take 500 mg by mouth in the morning and 500 mg at noon and 500 mg in the evening. 02/08/2025 Review of SystemsROS all negative except those noted in HPI Physical Exampre-admit mRS: Score 0: No symptoms at all. Further clinical exam documented under Impression and Plan by systems. ASSESSMENT AND PLAN Odilia Pink, 69 y.o. female with PMH of HTN, DM, Carotid stent, CAD,and depression, who presented on 02/11/2025 for left craniotomy for debulking of left basal ganglia mass. NEUROLOGICS/p L craniotomy for debulking of left basal ganglia mass Depression, present on admission Neuro Exam:GCS: E4 Eyes open spontaneously, V5 Speech oriented, M6 Follows commands MS: AAO x4, following commands, speech fluent, no dysarthria, naming intact, no neglect CN: L pupil 3, R pupil 3, EOMI, VFF, face symmetric Motor: No drift, 5/5 strength throughout Gait: deferred POD 0 (date 02/11) of L craniotomy for debulking of left basal ganglia mass MRI brain w/wo Hemorrhagic mass lesion with multiple areas of ring enhancement centered in the left basal ganglia with extension to surrounding tissues, consistent with high-grade glial neoplasm or metastasis. Post-op MRI pending read Pathology in lab No coagulopathy on labs or per history S/p dexamethasone 10mg load, continue 4mg q12h S/p Keppra 1gm load; continue 500mg q12h for sz ppx No sedationPT/OT/MANAGER FACILITY as indicated Home Meds, cont: buPROPion SR 150mg q12h Zoloft 25mg every day CARDIOVASCULAR HTN, present on admission CAD, present on admission Carotid stent, present on admission CV Exam:Temp: [36 ?C (96.8 ?F)-36.9 ?C (98.4 ?F)] 36.6 ?C (97.9 ?F) Heart Rate: [78-99] 79 Resp: [19-27] 22 BP: (125-154)/(66-81) 147/76 Arterial Line BP 1: (97-129)/(56-126) 97/93 VS Parameters: SBP 100-150PRN hydralazine, labetalol Cardene gtt weaned off Home Meds resumed Hydralazine 25mg BID Lisinopril 20mg every day Hydrochlorothiazide 12.5mg every day Trop 12EKG NsR L radial a-line (02/11/25) PULMONARY Pulm Exam: CTAB ABGResults from last 7 days Lab Units 02/11/25 1108 POC PH, ARTERIAL 7.42 POC PCO2, ARTERIAL mmHg 34* POC PO2, ARTERIAL mmHg 220 POC HCO3, ARTERIAL mMol/L 22 POC SO2, ARTERIAL (CALC) % 99.8 POC BASE EXCESS, ARTERIAL mMol/L -2 On room air O2 sat >90 goal GASTROINTESTINAL GI Exam: soft, non-distended, present bowl sounds Nutrition:Current Order: Adult Diet Carbohydrate Controlled; Carb choice 1800 mich GI route: PO GI ppx: Pepcid, while on steroids bowel regimen: docusate, senna and miralax added last BM COLL[facility] CENTER MANAGER Emend x 1 given PACU Lab Results Component Value Date ALT 17 02/12/2025 AST 32 02/12/2025 Alkaline Phosphatase 50 02/12/2025 Bilirubin Total 1.48 (H) 02/12/2025 RENAL Intake/Output Summary (Last 24 hours) at 02/13/2025 0659Last data filed at 02/13/2025 0540 Gross per 24 hour Intake 363.5 ml Output 850 ml Net -486.5 ml Urine Output:975mL in 24hrs .6 mL/kg/hr (last 24hrs) Results from last 7 daysLab Units 02/13/25 0238 02/12/25 0831 02/12/25 0021 02/11/25 1108 02/11/25 0901 02/11/25 0901 02/10/25 1131 POC SODIUM, ARTERIAL mEq/L -- -- -- 139 < > 133* -- SODIUM mEq/L 137 140 141 -- -- -- 143 POC POTASSIUM, ARTERIAL mEq/L -- -- -- 3.5 < > 3.2* -- POTASSIUM mEq/L 3.9 3.2* 3.1* -- -- -- 4.0 POC CHLORIDE mEq/L -- -- -- 111* < > 108 -- CHLORIDE mEq/L 105 105 107 -- -- -- 106 CO2 mEq/L 20.5 22.5 21.0 -- -- -- 26.6 BUN mg/dL 14 7* <7* -- -- -- 10 CREATININE mg/dL 0.71 0.60 0.64 -- -- -- 0.84 MAGNESIUM mg/dL 2.28 -- 2.08 -- -- -- 2.02 PHOSPHORUS mg/dL 2.2* -- 2.4 -- -- -- 2.7 CALCIUM mg/dL 9.5 9.0 8.8 -- -- -- 9.4 POC IONIZED CALCIUM, ARTERIAL mMol/L -- -- -- 1.13 -- 0.99* -- POC IONIZED CALCIUM, ARTERIAL (7.4) mmol/L -- -- -- 1.14 -- 0.99* -- < > = values in this interval not displayed. ICU electrolyte replacement protocolKayla hopkins INFECTIOUS DISEASE Leukocytosis Temp (24hrs), Av.6 ?C (97.9 ?F), Min:36 ?C (96.8 ?F), Max:36.9 ?C (98.4 ?F) Results from last 7 daysLab Units 02/13/2523702/12/25 0831 02/12/25 0021 WBC 10*3/uL 26.90* 21.36* 16.11* Leukocytosis likely reactive, continue to monitorMonitor trend fever curve and WBC no ABX indicated HEMATOLOGIC Results from last 7 daysLab Units 02/13/2523702/12/25 0831 02/12/25 0021 02/10/25 1131 HEMOGLOBIN g/dL 12.2 12.2 11.7 12.9 PLATELETS 10*3/uL 225 211 204 234 INR -- -- 1.11 0.96 PTT Seconds -- -- 23.8 25.0 No coagulopathy on labs or per historyDVT ppx: SCDs; hep sub ENDOCRINE Hyperglycemia Results from last 7 daysLab Units 02/13/2523702/12/25 1625 02/12/25 1139 POC GLUCOSE mg/dL -- 144* 149* GLUCOSE mg/dL 120* -- -- BG goal [id number] Home Meds Metformin 500 BID -- holding MUSCULOSKELETAL AND INTEGUMENTARY Skin Exam: warm, dry, intact Code Status: Full Code Disposition: transfer to floor [facility] Neurocritical [facility] NvICU Team ICU Ph #[phone] The patient was seen and examined by me at a separate time from the MARCELO. I also reviewed the documentation and agree with the documented findings and plan of care. Additionally, I was directly involved in the management of the patient and provided the substantive portion of this visit, including examining the patient, obtaining history, and medical decision-making. * Alfa Montgomery MD - 02/12/2025 3:[address] [facility] Query Clarification Progress Note As related to the inpatient hospital stay starting on 02/11/2025, 12:39 PM. I have reviewed the patient’s medical record and the following accurately represents the patient’s current condition. PROVIDER RESPONSE TEXT: Hypokalemia Query Created By : Alyson Cunningham, 02/12/2025, 3:15 PM * Crystal Silver - 02/12/2025 11:15 AM CDT 02/12/25 1020 Readmission Questions Is this hospital visit a Readmission? No Discharge Planning Information Source Self Permanent Residence Private residence Permanent Residence Type Multi-story home (Pt lives in 2 story home with stairs inside with 18 steps and outside with 3-4 steps) Household Members Spouse/significant other Support Systems Spouse/significant other;Children Arrived From Permanent Residence Barriers to Discharge Home PT/OT recs, pending medical clerance In the last 12 months, was there a time when you were not able to pay the mortgage or rent on time? N In the past 12 months, how many times have you moved where you were living? 0 At any time in the past 12 months, were you homeless or living in a care home (including now)? N In the past 12 months has the electric, gas, oil, or water [employer] threatened to shut off services in your home? No Within the past 12 months, you worried that your food would run out before you got the money to buy more. Never true Within the past 12 months, the food you bought just didn't last and you didn't have money to get more. Never true Assistive Devices None Current Services (none) Assistance Needed Pt was independent prior to admission Patient expects to be discharged to: Home Expected Discharge Disposition Home Caregiver assessment needed? No Reason No caregiver assessment needed Patient Independent Anticipated Services at Discharge None (Pending PT/OT recs) In the past 12 months, has lack of transportation kept you from medical appointments or from getting medications? no In the past 12 months, has lack of transportation kept you from meetings, work, or from getting things needed for daily living? No Does the patient need discharge transport arranged? No Discharge Planning Comments CM arrived at bedside to do DPA with pt. Pt stated they live in a 2 story home with 18 steps inside and 3-4 steps outside with only her . Her PCP is Hyun Quintana NP. Her MPOA is her . She does not use any resources and has a ride for transporation with /brother via [place]. Introduced and explained the different facilities to pt such as HH, SNF, and IPR. Pt is open to trying any option upon d/c and will wait for PT/OT consults. Discharge Planning Status Initial Assessment Complete CM asked whether patient will have adequate help at home after discharge: family is willing and has capacity to assist and care for patient; able to assist with f/u appointments if needed, including transportation. Patient's/Family's response: 1. Yes Marital Status: MPOA: Devan Pink (Spouse) - [phone] Advance Care Planning Documents Document Type Status Effective Date Expiration Date Received On Description Advance Directives and Living Will Not Received Power of Elementary School Music Teacher Not Received Emergency Contact Listed: Patient; If unable to, Extended Emergency Contact Information Primary Emergency Contact: Devan Pink Address: [address] [place] Relation: Spouse Lives with: with her spouse Pre-hospital function: independent Services: 0. No Home Health: 0. No DME use at home: none PCP/Contact Information: Hyun Quintana NP Pharmacy: [address], [place] [address] Home/Address: verified in [employer] Health Insurance/Payer: Payor: [employer] MEDICARE ADVANTAGE / Plan: [employer] MEDICARE ADVANTAGE / Product Type: Medicare / Who is available to provide care if needed?/Caregiver: spouse 05/12 care/supervision at home if needed: 0. No Transportation arrangements: Family/friends drive to appointments/errands HD: 0. No CASE MANAGEMENT ROUTINE DISCHARGE PLAN NOTE LOS: 1 Barriers to Discharge: PT/OT Clearance, MRI Brain, Post-Op Clearance, IV Dex DISCHARGE PLAN A: IPRDISCHARGE PLAN B: Home w/HH v.s OP TRANSPORT ARRANGEMENTS AT DC: PV w/ HENNA: 1 day CM will continue to follow and assist with care transition needs. Crystal MACKEY, RNCase Woodworking Belt Sander [phone] * Jacqui Morrow, PT - 02/12/2025 10:20 AM CDT Evaluation and Treatment Note Patient Name: Odilia Pink Today's Date: 02/12/2025 Preferred Language: American Assessment & Plan Assessment: PT Assessment: Pt was seen for PT evaluation and presents with right sided weakness(RUE weakness > RLE). Pt is motivated to participate with skilled PT and currently requires MIN/MOD A for mobility due to weakness, poor coordination, ataxia, and significantly impaired balance. Benefits from further skilled PT to address deficits. Prognosis: Good Evaluation/Treatment Tolerance: Patient tolerated treatment well Medical Staff Made Aware: Yes Medical Staff Made Aware Details: Call light in reach, Nurse informed, Family/visitor at bedside, All lines/leads intact, Vital signs stable Plan: Treatment Plan/Goals Established with Patient/Caregiver: Yes Treatment/Interventions: Balance training, Bed mobility training, Caregiver training, Functional activities, Gait training, Neuromuscular re-education, Patient education, Stair training, Therapeutic exercises, Transfer training PT Plan: Skilled PT PT Frequency: 3-5 times per week until discharge PT Recommended Transfer Status: Assistive equipment (Comment) Subjective "Let's go" 69 y.o. 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 the patient reports a sudden onset of a clumsiness R hand, which she discovered while applying makeup about 9 months ago. She describes the tremor as appearing "all of a sudden," noting that it was not present one day and then visible the next. Patient denies any prior symptoms or changes in facial appearance that would have indicated the presence of the lesion before its sudden appearance. 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 The imaging showed calcium deposits, hemorrhage, and surrounding swelling. A previous CT scan from 2021 did not show this lesion. Nsgy following and pt underwent left craniotomy for transsylvian debulking of the mass. Patient is being admitted to NVICU for post op monitoring. Pain: PRE-therapy session- Pain Assessment: 0-10 Pain Rating (0-10): 0 Pain Intervention: none needed POST-therapy session- Pain Assessment: 0-10 Pain Rating (0-10): 0 Pain Intervention: none needed Home Living: Type of Home: House Admitted From: Home Lives With: Spouse Home Adaptive Equipment: None Home Layout: Two level, Bed/bath upstairs Home Access: Level entry Prior Level of Function: Level of [place]: (Pt is IND at baseline) Objective General Visit Information: Location: Bedside Additional Individuals Present: Yes Others Present: and brother Precautions: Medical Precautions: Standard; Fall Cognition: Behavior/Cognition: Alert, Cooperative, Pleasant mood, Impulsive Orientation Level: Oriented X4 General Assessments: Sensation Sensation Light Touch: RLE Intact, LLE Intact Proprioception Proprioception Proprioception: RLE Intact, LLE Intact Coordination Coordination Movements are Fluid and Coordinated: No Toe Taps: Right impaired Balance- Sitting Static Sitting-Balance Support: Feet supported, Left upper extremity supported Level of Assistance: Supervision/touching assistance Functional Assessments: Bed Mobility Bed Mobility 1: Level of Assistance 1: Supervision/touching assistance Bed Mobility Comments 1: CGA Bed Mobility To/From: Supine to sit on EOB Assistive Devices And Adaptive Equipments: Bed rail Transfers Transfers 1: Level of Assistance 1: Partial/Mod assistance Trials/Comments 1: MIN A and frequent verbal cues for safety awareness due to impulsivity Transfer To/From: [id number]-[id number]-[id number]-Nuy Assistive Devices And Adaptive Equipments: No device Transfers 2: Technique 2: Via walking Level of Assistance 2: Partial/Mod assistance Trials/Comments 2: 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 Transfer To/From: Chair Assistive Devices And Adaptive Equipments: No device Gait Gait Training Time Entry: 15 Gait Training Activity 1: Distance (enter in feet): 70' Gait Training Activity 1: Indoor surface Assistive Devices And Adaptive Equipments: No device Level of Assistance 1: Partial/Mod assistance Gait Training Activity 1 Comment: Pt with ataxic gait and requires frequent cues for sequencing, weight shifting, and midline orientation Extremity Assessments: Right Lower Extremity RLE Assessment RLE Assessment: (08/17) Left Lower Extremity LLE Assessment LLE Assessment: Within Functional Limits Cognition Behavior/Cognition: Alert, Cooperative, Pleasant mood, Impulsive Orientation Level: Oriented X4 AM-PAC Basic Mobility: Turning in bed without bedrails: A Little Lying on back to sitting on edge of flat bed: A Little Bed to chair: A Little Standing up from chair: A Lot Walk in room: A Lot Climbing 3-5 stairs: A Lot Mobility Inpatient Raw Score: 15 JH-HLM Goal: 4 Mobility: Highest Level of Mobility Performed (JH-HLM) Walked 25 feet or more (i.e. walked outside of room) Patient Education: Education Documentation Physical Therapy Plan of Care, taught by Jacqui Morrow PT at 02/12/2025 4:37 PM. Learner: Family, Patient Readiness: Eager Method: Explanation Response: Verbalizes Understanding Goal: Encounter Goals Encounter Goals (Active) Pt will be indep with bed mobility Start: 02/12/25 Expected End: 03/12/25 Pt will be indep with transfers. Start: 02/12/25 Expected End: 03/12/25 Pt will be indep with ambulation x 150'- LRAD PRN Start: 02/12/25 Expected End: 03/12/25 Patient will ascend and descend a flight of stairs Start: 02/12/25 Expected End: 03/12/25 Treatment Note: If this is the last documented treatment, then it will signify discharge from acute care prior to discharge from the therapy service and will serve as the discharge summary. Jacqui Morrow PT * Mariam Peacerodriguez, OT - 02/12/2025 9:43 AM CDT Evaluation and Treatment Patient Name: Odilia Pink Today's Date: 02/12/2025 Preferred Language: American Assessment & Plan Assessment: Pt is presenting to [facility] for a L pterional crani for a tumor resection. Pt is assisting with PLOF information. Pt reports she lives with her in a two story home with her room on the second floor. Pts PLOF included her being IND with all ADLs and IADLs. Pt does not use any DME and still is driving. This session, pt is alert and oriented. Pt is completing bed mobility and sit to stands with Min A, ambulates with Mod A and HHAx2. Pt is having some RSW, more in the RUE compared to the RLE. Pts sensation is intact at this time. Pt also appears to have some ataxia with ambulation, requires max verbal cues for ambulation. Pt is limited by strength, activity tolerance, balance, ADL completion, mild R side inattention with a R side lean, and decreased safety awareness. Pt will continue to benefit from acute OT services to address deficits. OT Assessment Results: Impaired ADL status, Impaired upper extremity strength, Impaired safe judgment during ADL, Impaired cognition, Impaired sensation, Impaired fine motor control, Impaired functional mobility, Impaired gross motor control, Impaired IADLs, Impaired right upper extremity, Impaired endurance Prognosis: Good Evaluation/Treatment Tolerance: Patient tolerated treatment well Strengths: Attitude of self Medical Staff Made Aware: Yes Medical Staff Made Aware Details: Call light in reach, Bed rails up, Nurse informed Plan: Treatment Plan/Goals Established with Patient/Caregiver: Yes OT Planned Treatments: Activities of Daily Living, Balance training, Coordination, Neuromuscular reeducation, Orthotic, Safety education, Therapeutic activities, Therapeutic exercises OT Plan: Skilled OT OT Frequency: 2-4 times per week until discharge OT Duration: Discharge Subjective Pt stated, "this arm isn't really working now" Current Problem: Odilia Pink, 69 y.o. 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 he patient reports a sudden onset of a clumsiness R hand, which she discovered while applying makeup about 9 months ago. She describes the tremor as appearing "all of a sudden," noting that it was not present one day and then visible the next. Patient denies any prior symptoms or changes in facial appearance that would have indicated the presence of the lesion before its sudden appearance. 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 The imaging showed calcium deposits, hemorrhage, and surrounding swelling. A previous CT scan from 2021 did not show this lesion. Nsgy following and pt underwent left craniotomy for transsylvian debulking of the mass. Patient is being admitted to NVICU for post op monitoring. Pain: PRE-therapy session- Pain Assessment: 0-10 Pain Rating (0-10): 0 Pain Intervention: none needed POST-therapy session- Pain Assessment: 0-10 Pain Rating (0-10): 3 Pain Intervention: none needed pt reported she was okay Objective Vital Signs: Blood pressure 138/70, pulse 84, temperature 36.9 ?C (98.4 ?F), resp. rate 21, height 1.575 m (5' 2"), weight 68 kg (149 lb 14.6 oz), SpO2 98%. General Visit Information: Subjective: "This side isn't working great" Precautions: UE Weight Bearing Status: FWB LE Weight Bearing Status: FWB Medical Precautions: Standard; Fall Cognition: Overall Cognitive Status: Within Functional Limits Behavior/Cognition: Alert, Cooperative Orientation Level: Oriented X4 Home Living: Type of Home: House Admitted From: Home Lives With: Spouse Home Adaptive Equipment: None Home Living Comments: Pt is IND at baseline Home Layout: Two level, Bed/bath upstairs Home Access: Level entry Bathroom Shower/Tub: Walk-in shower Bathroom Toilet: Standard Bathroom Equipment: None Prior Function: Level of [place]: Independent with ADLs and functional transfers, Independent with homemaking with ambulation Receives Help From: Family ADL Assistance: Independent Homemaking Assistance: Independent Self Care (ADL): Eating Assistance: Supervision/touching assistance Grooming Assistance: Supervision/touching assistance Bathing Assistance: Partial/Mod assistance UE Dressing Assistance: Partial/Mod assistance LE Dressing Assistance: Partial/Mod assistance Toileting Assistance: Partial/Mod assistance ADL Comments: Overall Mod A for most ADLs and CGA- Set up for self care tasks Mobility/Transfers: Bed Mobility Bed Mobility Bed Mobility: Yes Bed Mobility 1 Level of Assistance 1: Supervision/touching assistance Bed Mobility Comments 1: CGA Bed Mobility To/From: Roll left/right Assistive Devices And Adaptive Equipments: Bed rail Bed Mobility 2 Level of Assistance 2: Partial/Mod assistance Bed Mobility Comments 2: Min A Bed Mobility To/From: Supine to sit on EOB Assistive Devices And Adaptive Equipments: Bed rail Bed Mobility 3 Level of Assistance 3: Partial/Mod assistance Bed Mobility Comments 3: Min A Bed Mobility To/From: Sitting EOB to supine Assistive Devices And Adaptive Equipments: Bed rail Transfer Transfers Transfer: Yes Transfer 1 Technique 1: Stand step Level of Assistance 1: Partial/Mod assistance Trials/Comments 1: Min A Transfer To/From: [id number] Assistive Devices And Adaptive Equipments: No device Transfers 2 Technique 2: Via walking Level of Assistance 2: Partial/Mod assistance Trials/Comments 2: HHAx2 and Mod A with max verbal cues Transfer To/From: Bed, Chair Assistive Devices And Adaptive Equipments: No device OT General Assessments: Activity Tolerance Activity Tolerance Endurance: Tolerates 10 - 20 min exercise with multiple rests Sitting Balance: Sits without upper extremity support up to 30 sec Early Mobility/Exercise Safety Screen: Proceed with mobilization - No exclusion criteria met Vision BasicVision - Basic Assessment Current Vision: No visual deficits Vision ComplexVision - Complex Assessment Ocular Range of Motion: Within Functional Limits Sensation Sensation Light Touch: LUE Intact, RUE Intact Deep Pressure: LUE Intact, RUE Intact Sensation Comments: Pt reports that her sensation is equal on both sides of her body Proprioception Perception Perception Inattention/Neglect: Appears intact Initiation: Appears intact Motor Planning: Appears intact Perseveration: Not present Coordination Coordination Movements are Fluid and Coordinated: No Coordination and Movement Description: Pts gait ataxic and RUE not coordinated Hand Function Hand Function Gross Grasp: Impaired Coordination: Impaired Balance- Sitting Static Sitting-Balance Support: Left upper extremity supported, Feet supported Level of Assistance: Contact guard Balance- Standing Static Standing-Balance Support: Right upper extremity supported, Left upper extremity supported Static Standing-Level of Assistance: Minimum assistance Static Standing-Comment/Number of Minutes: R side lean Dynamic Standing-Balance Support: Right upper extremity supported, Left upper extremity supported Dynamic Standing-Balance: Lateral lean Dynamic Standing-Comments: Mod A Extremity Assessments: Right Upper Extremity RUE Assessment RUE Assessment: Exceptions to WFL RUE StrengthRUE Overall Strength: Deficits R Shoulder Flexion: 2+/5 R Shoulder Extension: 2+/5 R Shoulder ABduction: 2+/5 R Shoulder ADduction: 2+/5 R Shoulder Internal Rotation: 2+/5 R Shoulder External Rotation: 2+/5 R Shoulder Horizontal ABduction: 2+/5 R Shoulder Horizontal ADduction: 2+/5 R Elbow Flexion: 2/5 R Elbow Extension: 2/5 R Forearm Pronation: 2+/5 R Forearm Supination: 2+/5 R Wrist Flexion: 2+/5 R Wrist Extension: 2+/5 R Wrist Radial Deviation: 2+/5 R Wrist Ulnar Deviation: 2+/5 R Gross Biology Specimen Technician Strength: 2+/5 Left Upper Extremity LUE AssessmentLUE Assessment: Within Functional Limits Treatment:Bed Mobility: Bed Mobility Bed Mobility: Yes Bed Mobility 1 Level of Assistance 1: Supervision/touching assistance Bed Mobility Comments 1: CGA Bed Mobility To/From: Roll left/right Assistive Devices And Adaptive Equipments: Bed rail Bed Mobility 2 Level of Assistance 2: Partial/Mod assistance Bed Mobility Comments 2: Min A Bed Mobility To/From: Supine to sit on EOB Assistive Devices And Adaptive Equipments: Bed rail Bed Mobility 3 Level of Assistance 3: Partial/Mod assistance Bed Mobility Comments 3: Min A Bed Mobility To/From: Sitting EOB to supine Assistive Devices And Adaptive Equipments: Bed rail Transfers:Transfers Transfer: Yes Transfer 1 Technique 1: Stand step Level of Assistance 1: Partial/Mod assistance Trials/Comments 1: Min A Transfer To/From: [id number] Assistive Devices And Adaptive Equipments: No device Transfers 2 Technique 2: Via walking Level of Assistance 2: Partial/Mod assistance Trials/Comments 2: HHAx2 and Mod A with max verbal cues Transfer To/From: Bed, Chair Assistive Devices And Adaptive Equipments: No device Therapeutic ActivityTherapeutic Activity Time Entry: 10 AM-PAC Daily Activity:Putting on and taking off regular lower body clothing: A Lot Bathing (including washing, rinsing, drying): A Lot Toileting, which includes using toilet, bedpan or urinal: A Lot Putting on and taking off regular upper body clothing: A Lot Taking care of personal grooming such as brushing teeth: A Lot Eating Meals: A Little AM-PAC Daily Activity Raw Score: 13 Patient Education: Education Documentation Home Exercise Program, taught by Mariam Nino OT at 02/12/2025 1:52 PM. Learner: Patient Readiness: Acceptance Method: Explanation Response: Verbalizes Understanding Occupational Therapy Plan of Care, taught by Mariam Nino OT at 51:52 PM. Learner: Patient Readiness: Acceptance Method: Explanation Response: Verbalizes Understanding Education CommentsNo comments found. Goals:Encounter Goals Encounter Goals (Active) Pt will complete bed to toilet transfer via ambulation with SBA using AE as needed in preparation for household ambulation Start: 02/12/25 Expected End: 02/28/25 Pt will complete oral care at sink in static standing for >3 minutes with SBA Start: 02/12/25 Expected End: 02/28/25 Pt will complete upper and lower body dressing task with SBA using AE as needed. Start: 02/12/25 Expected End: 02/28/25 pt will complete HEP and daily RUE exercises to increased RUE strength and coordination for functional use Start: 02/12/25 Expected End: 02/28/25 Pt will complete a bed to chair transfer with SBA in prep for OOB mobility. Start: 02/12/25 Expected End: 02/28/25 Treatment Note: If this is the last documented treatment, then it will signify discharge from acute care prior to discharge from the therapy service and will serve as the discharge summary. Mariam Nino OT * Flora Pierson NP - 02/12/2025 7:23 AM CDT Neurosurgery progress note Subjective No acute events overnight Recent Vital Signs: 119/66 | 97 | 36.9 ?C (98.4 ?F) | 21 | 157.5 cm (5' 2") | 68 kg (149 lb 14.6 oz) | Body mass index is 27.42 kg/m?. BP & Temp Min/Max Last 24 Hours: BP Min: 90/53 Min taken time: 02/11/25 1645 Max: 134/71 Max taken time: 02/11/25 2200 | Temp Av.5 ?C (97.7 ?F) Min: 35.9 ?C (96.6 ?F) Min taken time: 02/11/250 Max: 37 ?C (98.6 ?F) Max taken time: 02/11/251999 MENTAL STATUS: - Eye Opening: Spontaneously (4) Verbal: Oriented (5) Best Motor: Follows Commands (6) - GCS: 15 - Orientation: Alert & Oriented x 3 CRANIAL NERVES: - Pupil OD Size/Speed: 3 brisk - Pupil OS Size/Speed: 3 brisk - CN Deficits: Remaining II - XII Intact Right facial droop MOTOR: - RUE: Follows Commands (6) 4-/5 - RLE: Follows Commands (6) 4+/5 - LUE: Follows Commands (6) 5/5 - LLE: Follows Commands (6) 5/5 SENSORY: - No sensory deficits noted CEREBELLAR EXAM: - No dysmetria === 02/10/25 === MRI BRAIN W AND WO IV CONTRAST - Impression -Hemorrhagic mass lesion with multiple areas of ring enhancement centered in the left basal ganglia with extension to surrounding tissues, consistent with high-grade glial neoplasm or metastasis. Images adequate for localization. Report finalized by: Yinka Esquivel MD 02/11/2025 10:04No results found for this or any previous visit from the past 365 days. 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 PMH of HTN, DM, Carotid stent, CAD, and depression POD # 1 - new right sided weakness post op- Antibiotics per SCIP - Dexamethasone 4 mg q12hrs/ GI ppx - Keppra 500 mg BID for seizure ppx - post op MRI pending - Continue current pain regimen, pain well controlled - Tolerating diet well - Glucose well controlled with SSI - Aggressive bowel regimen with senna, MiraLAX, and bisacodyl suppository as needed. LBM: COLLISION CENTER MANAGER - SQH for DVT ppx - OOB for all meals and ambulate x5 per day. If the patient cannot ambulate, please have him sitting in the chair 3 times a day - PT/OT - discontinue hopkins, A-line - rehab referral - If you have NSGY questions or concerns and it is Monday-Monday 6:00 am - 2:00 pm, please page [phone]. If outside of these hours then please page [phone] with NSGY questions or concerns. Flora Pierson AGAANGELAP-BCDept of Neurosurgery * Alfa Montgomery MD - 02/12/2025 6:51 AM CDT Neurocritical Care Consultation Note Consulted by JENNIFER for medical mgmt History Of Present Illness Odilia Pink, 69 y.o. 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 he patient reports a sudden onset of a clumsiness R hand, which she discovered while applying makeup about 9 months ago. She describes the tremor as appearing "all of a sudden," noting that it was not present one day and then visible the next. Patient denies any prior symptoms or changes in facial appearance that would have indicated the presence of the lesion before its sudden appearance. 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 The imaging showed calcium deposits, hemorrhage, and surrounding swelling. A previous CT scan from 2021 did not show this lesion. Nsgy following and pt underwent left craniotomy for transsylvian debulking of the mass. Patient is being admitted to [facility] for post op monitoring. Interval Events: 02/11: POD 0: L crani for transsylvian debulking of subcorticalr mass. Patient arrived to unit. Cardene ongoing for bp mgmt 02/12: Cardene weaned off, pending post op MRI b Past Medical History has a past medical history of Anxiety (2007), Depression, Elevated alkaline phosphatase level (01/22/2025), Encntr for general adult medical exam w/o abnormal findings (01/22/2025), Hypertension, Memory loss, and Statin not tolerated (01/22/2025). Surgical History has a past surgical history that includes Hysterectomy; Appendectomy; and Breast lumpectomy. Family History Family History: Problem Relation Name Age of Onset Colon cancer Mother Keyonna Messer Restless legs syndrome Mother Keyonna Messer 40 - 49 Social History Social History Tobacco UseSmoking status: Former Current packs/day: 0.00 Average packs/day: 1.5 packs/day for 45.0 years (67.5 ttl pk-yrs) Types: Cigarettes Start date: 05/15/1969 Quit date: 03/03/1995 Years since quittin.9 Passive exposure: Past Smokeless tobacco: Never Vaping Use Vaping status: Never Used Substance Use Topics Alcohol use: Not Currently Drug use: Yes Types: Marijuana AllergiesPatient has no known allergies. Home MedicationsFacility-Administered Medications Prior to Admission Medication Dose Route Frequency Provider Last Rate Last Admin [COMPLETED] gadoterate Meglumine (Clariscan, Dotarem) injection 13 mL 0.2 mL/kg Intravenous Once in imaging Earnest Grey MD 13 mL at 02/10/25 1440 sodium chloride (NS) 0.9 % flush 3 mL 3 mL Intravenous PRN Earnest Grey MD 20 mL at 02/10/25 1441 Medications Prior to AdmissionMedication Sig Dispense Refill Last Dose/Taking buPROPion SR (Wellbutrin SR) 150 MG 12 hr tablet Take 2 tablets by mouth 1 time each day. 02/10/2025 hydrALAZINE (Apresoline) 25 MG tablet Take 1 tablet by mouth in the morning and 1 tablet in the evening. 02/10/2025 Morning lisinopril-hydroCHLOROthiazide 20-12.5 MG tablet Take 1 tablet by mouth 1 time each day. 02/10/2025 Morning Multiple Vitamin (multivitamin) tablet Take 1 tablet by mouth 1 time each day. Past Month Repatha SureClick 140 MG/ML Subcutaneous Solution Auto-injector Inject 140 mg under the skin every 14 days. Past Month sertraline (Zoloft) 25 MG tablet Take 1 tablet by mouth 1 time each day. 02/10/2025 aspirin EC 81 MG EC tablet Take 81 mg by mouth 1 time each day. 02/07/2025 metFORMIN (Glucophage) 500 MG tablet Take 500 mg by mouth in the morning and 500 mg at noon and 500 mg in the evening. 02/08/2025 Review of SystemsROS all negative except those noted in HPI Physical Exampre-admit mRS: Score 0: No symptoms at all. Further clinical exam documented under Impression and Plan by systems. ASSESSMENT AND PLAN Odilia Jackson McRonitsonal, 69 y.o. female with PMH of HTN, DM, Carotid stent, CAD,and depression, who presented on 02/11/2025 for left craniotomy for debulking of left basal ganglia mass. NEUROLOGICS/p L craniotomy for debulking of left basal ganglia mass Depression, present on admission Neuro Exam:GCS: E4 Eyes open spontaneously, V5 Speech oriented, M6 Follows commands MS: AAO x4, following commands, speech fluent, no dysarthria, naming intact, no neglect CN: L pupil 3, R pupil 3, EOMI, VFF, face symmetric Motor: No drift, 5/5 strength throughout Gait: deferred POD 0 (date 02/11) of L craniotomy for debulking of left basal ganglia mass MRI brain w/wo Hemorrhagic mass lesion with multiple areas of ring enhancement centered in the left basal ganglia with extension to surrounding tissues, consistent with high-grade glial neoplasm or metastasis. Post-op MRI at midnight Pathology report pending No coagulopathy on labs or per history S/p dexamethasone 10mg load, continue 4mg q12h S/p Keppra 1gm load; continue 500mg q12h for sz ppx No sedationPT/OT/MANAGER FACILITY as indicated Home Meds, cont: buPROPion SR 150mg q12h Zoloft 25mg every day CARDIOVASCULAR HTN, present on admission CAD, present on admission Carotid stent, present on admission CV Exam:Temp: [35.9 ?C (96.6 ?F)-37.1 ?C (98.7 ?F)] 36 ?C (96.8 ?F) Heart Rate: [75-100] 97 Resp: [12-28] 21 BP: (90-168)/(52-79) 119/66 Arterial Line BP 1: (87-127)/(52-87) 89/56 VS Parameters: SBP 100-150PRN hydralazine, labetalol Cardene gtt weaned off Home Meds resumed Hydralazine 25mg BID Lisinopril 20mg every day Hydrochlorothiazide 12.5mg every day Trop 12EKG NsR L radial a-line (02/11/25) PULMONARY Pulm Exam: CTAB ABGResults from last 7 days Lab Units 02/11/25 1108 POC PH, ARTERIAL 7.42 POC PCO2, ARTERIAL mmHg 34* POC PO2, ARTERIAL mmHg 220 POC HCO3, ARTERIAL mMol/L 22 POC SO2, ARTERIAL (CALC) % 99.8 POC BASE EXCESS, ARTERIAL mMol/L -2 On room air O2 sat >90 goal GASTROINTESTINAL GI Exam: soft, non-distended, present bowl sounds Nutrition:Current Order: Adult Diet Regular GI route: PO GI ppx: Pepcid, while on steroids bowel regimen: docusate, senna last BM COLLISION CENTER MANAGER Emend x 1 given PACU Lab Results Component Value Date ALT 21 02/10/2025 AST 28 02/10/2025 Alkaline Phosphatase 58 02/10/2025 Bilirubin Total 0.81 02/10/2025 RENAL Intake/Output Summary (Last 24 hours) at 02/12/2025 0651Last data filed at 02/12/2025 0600 Gross per 24 hour Intake 3900 ml Output 3475 ml Net 425 ml Urine Output:975mL in 24hrs .6 mL/kg/hr (last 24hrs) Results from last 7 daysLab Units 02/12/25 0021 02/11/25 1108 02/11/25 0901 02/10/25 1131 POC SODIUM, ARTERIAL mEq/L -- 139 133* -- SODIUM mEq/L 141 -- -- 143 POC POTASSIUM, ARTERIAL mEq/L -- 3.5 3.2* -- POTASSIUM mEq/L 3.1* -- -- 4.0 POC CHLORIDE mEq/L -- 111* 108 -- CHLORIDE mEq/L 107 -- -- 106 CO2 mEq/L 21.0 -- -- 26.6 BUN mg/dL <7* -- -- 10 CREATININE mg/dL 0.64 -- -- 0.84 MAGNESIUM mg/dL 2.08 -- -- 2.02 PHOSPHORUS mg/dL 2.4 -- -- 2.7 CALCIUM mg/dL 8.8 -- -- 9.4 POC IONIZED CALCIUM, ARTERIAL mMol/L -- 1.13 0.99* -- POC IONIZED CALCIUM, ARTERIAL (7.4) mmol/L -- 1.14 0.99* -- K 3.1, f/u on rpt labICU electrolyte replacement protocol No IvF No hopkins INFECTIOUS DISEASE Leukocytosis Temp (24hrs), Av.5 ?C (97.7 ?F), Min:35.9 ?C (96.6 ?F), Max:37.1 ?C (98.7?F) Results from last 7 daysLab Units 02/12/25 00202/10/25 1131 WBC 10*3/uL 16.11* 7.19 Leukocytosis likely reactive, continue to monitorMonitor trend fever curve and WBC no ABX indicated HEMATOLOGIC Results from last 7 daysLab Units 02/12/25 00202/10/25 1131 HEMOGLOBIN g/dL 11.7 12.9 PLATELETS 10*3/uL 204 234 INR 1.11 0.96 PTT Seconds 23.8 25.0 No coagulopathy on labs or per historyDVT ppx: SCDs; start hep sub today ENDOCRINE Hyperglycemia Results from last 7 daysLab Units 02/12/25 00202/11/25 1734 02/11/25 1406 POC GLUCOSE mg/dL -- 157* 143* GLUCOSE mg/dL 151* -- -- BG goal [id number] ISS Home Meds Metformin 500 BID -- holding MUSCULOSKELETAL AND INTEGUMENTARY Skin Exam: warm, dry, intact Code Status: Full Code Disposition: ICU [facility] Neurocritical Care NvICU Team ICU Ph #[phone] The patient was seen and examined by me at a separate time from the MARCELO. I also reviewed the documentation and agree with the documented findings and plan of care. Additionally, I was directly involved in the management of the patient and provided the substantive portion of this visit, including examining the patient, obtaining history, and medical decision-making. [id number] 19:56:33Upcoming Encounters Pending Results Name Type Priority Associated Diagnoses Date /Time Tissue Examination Pathology and Cytology Routine Malignant neoplasm of brain, unspecified 02/11/2025 11:01 AM CDT Scheduled Orders Name Type Priority Associated Diagnoses Order Schedule Tissue Examination Pathology and Cytology Timed Malignant neoplasm of brain, unspecified Release Upon Ordering for 1 Occurrences starting 02/11/2025, 1 completed Comprehensive Metabolic Panel Lab Timed Daily until discontinued starting 02/12/2025, 2 completed Complete Blood Count w/Diff and Platelet Lab Timed Daily until discontinued starting 02/12/2025, 2 completed POCT Glucose Point of Care Testing - Docked Device Routine 3 times daily before meals (Lab) for 30 Days starting 02/11/2025 until 03/13/2025, 8 completed POCT Glucose Point of Care Testing - Docked Device Routine Every 15 minutes as needed until discontinued starting 02/11/2025 Basic Metabolic Panel Lab Routine Mor aidan draw (Lab) for 4 Weeks starting 02/12/2025 until 03/11/2025, 2 completed Magnesium Level Lab Routine Morning d raw (Lab) for 4 Weeks starting 02/12/2025 until 03/11/2025, 3 completed Phosphorus Level Lab Routine Morning draw (Lab) for 4 Weeks starting 02/12/2025 until 03/11/2025, 3 completed Complete Blood Count w/Diff and Platelet Lab Routine Morning draw (Lab) for 4 Weeks starting 02/12/2025 until 03/11/2025, 2 completed MRI brain w and wo IV contrast Imaging Routine Neoplasm of unspecified behavior of brain Once for 1 Occurrences starting 02/13/2025 until 02/13/2025 Complete Blood Count Lab Timed Once for 1 Occurrences starting 02/14/2025 until 02/14/2025 Automated Differential Lab Timed Once for 1 Occurrences starting 02/14/2025 until 02/14/2025 Health Maintenance Due Date Last Done Comments Bone Density Scan 1955 CT Colonography 1955 Colonoscopy 1955 Colorectal Cancer Screening 1955 FIT-DNA 1955 FIT 1955 FOBT 1955 Lipid Panel 1955 Medicare Annual Wellness (AWV) 1955 Sigmoidoscopy 1955 Mammogram 1995 Respiratory Syncytial Virus (RSV) Adult Series (1 - Risk 60-74 years 1-dose series) 2015 Influenza Vaccine (#1) 2025 4, 02/04/2023, 01/28/2022, Additional history exists DTaP/Tdap/Td Vaccines (2 - Td or Tdap) 07/09/2029 07/09/2019 Zoster Vaccines Completed 04/12/2021, 02/22/2021 Pneumococcal Vaccine: 50+ Years Completed 04/22/2024, 02/22/2021 HIB Vaccines Aged Out No longer eligi ble based on patient's age to complete this topic HPV Vaccines Aged Out No longer eligi ble based on patient's age to complete this topic Hepatitis A Vaccines Aged Out No long er eligible based on patient's age to complete this topic Hepatitis B Vaccines Aged Out No long er eligible based on patient's age to complete this topic IPV Vaccines Aged Out No longer eligi ble based on patient's age to complete this topic Meningococcal Vaccine Aged Out No kashmir isaac eligible based on patient's age to complete this topic Rotavirus Vaccines Aged Out No longer eligible based on patient's age to complete this topic [id number] 19:56:33 [id number] 19:56:33 [id number] 19:56:33 Diagnosis Malignant neoplasm of brain, unspecified - Primary Malignant neoplasm of brain, unspecified Neoplasm of unspecified beha vior of brain 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 Ambulance service picked up the patient at 0745 PM. [facility] [id number] 16:35:32 Images from the original note were not included. [id number] Understanding Glioblastoma (GBM) Glioblastoma (GBM), formerly known as glioblastoma multiforme, fast-growing and aggressive brain tumor. It invades the nearby brain tissue but generally does not spread to other organs. It?s the most common type of brain cancer in adults. How a glioblastoma grows GBM is a type of brain tumor known as a glioma. It starts in glial cells, which help keep the nerve cells in the brain healthy. Brain tumors are graded on a 1 to 4 (I to IV) scale based on how fast they grow. Grade1 brain tumors grow the slowest. Grade 4 tumors grow the fastest. GBMs are grade 4 brain tumors. These tumors grow quickly and often spread into nearby brain tissue. What causes glioblastoma? Researchers are still learning what causes GBM. Changes in a cell's genes are a stanton part of cancer. These gene changes affect the way the cells grow. Cancer cells grow and divide out of control to form a tumor. Most gene changes occur randomly, and researchers haven't found a way to keep them from happening. Symptoms of glioblastoma The symptoms of GBM often depend on where the tumor is in the brain. Different parts of the brain control different things. For instance, if a GBM grows in an area that controls your arm movements, your arm may become weak. If it grows in an area that controls your speech, you may have trouble forming words. As the tumor grows, it increases the pressure in the skull and causes more symptoms. GBM symptoms often start slowly and get worse over time. Common symptoms include: ? Headaches. ? Vision changes. ? Trouble or changes with how you talk, see, and hear. ? Nausea or vomiting. ? Seizures. ? Mood swings. ? Personality changes. ? Trouble concentrating. ? Problems with memory. ? Learning difficulties. ? Balance problems and changes in how you walk. Diagnosing glioblastoma Your health care provider will ask about your health history and your symptoms. A physical exam will be done. This will include checking your vision and hearing, strength, reflexes, and sense of touch. You may be asked questions to check your memory and learning ability. You may be asked to walk around. This is to check your gait, coordination, and balance. Your provider will likely refer you to a specialist to help make the diagnosis. This provider may be a neurologist or neurosurgeon. These are providers who specialize in treating diseases of the brain. If you have a tumor, you may also see an oncologist or neuro-oncologist to help plan your treatment. These are providers who treat cancer. If your provider thinks you might have a brain tumor, more tests will be needed. These tests can help tell the difference between a tumor and other possible causes of your symptoms, like an infection or stroke. The tests will also help find out if a brain tumor is cancer. Tests used may include: ? MRI. This test can help find tumors, swelling, bleeding, and signs of stroke. It's the best test to look for GBMs. ? Magnetic resonance spectroscopy. This can be done as part of an MRI. It helps look at chemical changes in different parts of the brain. ? CT scan. This test can help find bleeding in the brain, skull bone changes, and calcium deposits. ? Needle biopsy. To do this, your provider uses CT or MRI to guide a needle into the tumor so that a tiny piece of it can be taken out and tested for cancer. This is seldom done to diagnose GBM. Instead, surgery is done to take out the tumor and then it's sent for testing. ? Blood tests. These look for signs of infection or diseases. They also give a sense of your overall health. Last Reviewed Date: 2024 00:00:00 ? [id number] [employer]. All rights reserved. This information is not intended as a substitute for professional medical care. Always follow your healthcare professional's instructions. [facility]2025-10-03 16:35:29 Images from the original note were not included. [id number] Life After Cancer: Mental (Cognitive) Changes After cancer treatment, you may have a hard time remembering, thinking, and paying attention. These are known as cognitive problems. Cognitive problems are common after cancer treatment. A cognitive problem that occurs after chemotherapy is often known as ?chemo brain.? Some people describe it as feeling like ?brain fog.? Symptoms can be mild and last only for a few months. Or they may be more severe and last longer. In some cases, they can cause problems with daily tasks, work, and relationships. Your cognitive issues will depend on your age, type of cancer, length and type of treatment, and other factors. What causes cognitive problems after cancer? Researchers aren?t sure why cancer treatment causes changes in thinking and memory. These changes are often linked to chemotherapy. But other treatments and things can contribute to cognitive changes. Hormone changes after cancer treatment, surgery, radiation, stress, anxiety, depression, anemia, pain, extreme tiredness, sleep problems, and some medicines may also affect cognitive issues. They may be in some part caused by the cancer itself. You may be more at risk for cognitive problems if you?ve had one or more of these types of cancer: ? Blood cancers (leukemia, multiple myeloma) ? Brain cancer ? Breast cancer ? Colon cancer ? Ovarian cancer Symptoms of cognitive changes after cancer After cancer treatment, you may have trouble: ? Remembering things, especially details like names and dates ? Learning new things ? Multitasking ? Paying attention ? Concentrating and focusing on a task or something complex ? Answering questions ? Thinking or understanding information quickly ? Reading ? Thinking of a word you want to say ? Solving problems ? Making decisions Treating cognitive problems after cancer Treatments may include: ? Medicine. Some kinds of medicine may help with cognitive problems. These include stimulants like modafinil and methylphenidate. Donepezil is another type of medicine used for dementia that may help. Your healthcare provider will determine if medicine is right for you. ? Cognitive exercises. These are mental exercises that may help the brain work better over time. The training can be done on a computer. Your healthcare provider may also suggest other things to try, such as biofeedback or mindfulness training, and refer you to specialists like an occupational therapist to help you with the cognitive changes. If you?re not sleeping well, not getting physical activity, or not getting good nutrition, these can make cognitive problems worse. Make sure to: ? Eat a healthy diet with plenty of fruits, vegetables, and whole grains. ? Exercise regularly. Ask your healthcare provider what exercises are safe for you to do and how often to do them. ? Keep a regular sleep schedule, and tell your healthcare provider if you have sleep problems. ? Don?t use tobacco. Ask your healthcare provider for help quitting. ? Limit or avoid drinking alcohol. Don't use other substances that may affect your ability to think clearly and sleep well. Daily coping tips ? Write things down. Don?t rely on remembering things. Write down things such as to-do items, upcoming events, and grocery lists in a notebook or on an marcelo on your phone. ? Set reminders. Use your computer and phone to create reminders. Remind yourself of everything from appointments and daily tasks to when to take vitamins and walk the dog. ? Get rid of distractions. Noise, activity, and other people can make it harder to focus on something like reading or working on a task. Try to keep your environment quiet and calm when you need to concentrate. ? Get organized. Get in the habit of planning your day and keeping routines. This can help you stay on track without taxing your mental resources. ? Choose a spot for important items. Use this for things you commonly misplace or lose such as keys. Put the items there every time you are done with them. ? Prioritize. Do the most important tasks at a time when your energy is highest and your thinking is clearest. ? Be patient with yourself. Keep in mind that ?brain fog? is a common after-effect of cancer treatment. The medicines that help kill cancer affect the body in many ways. ? Ask for help. Accept help from loved ones for challenging tasks. Delegate daily tasks to lessen your list of to-do items. Getting support Talk with your family and friends if you?re having cognitive problems after cancer treatment. They can help you with daily tasks and give emotional support. You may also want to talk with other people who feel the same way. Your healthcare provider can help you find a local or online cancer survivors support group. Talking with your healthcare provider Ask your healthcare provider about your personal risk for cognitive problems based on your type of cancer, treatment, and other factors. Tell your healthcare provider if your memory and thinking problems aren?t getting better or are getting worse. They may want to check if you have depression or anxiety. These can make symptoms worse or make it hard to get better. Your healthcare provider may also want you to keep a log of your cognitive problems to see what makes your thinking better or worse. Before a medical appointment, write down any questions you want to ask your healthcare provider. Consider taking a friend or family member to your appointment so they can help you remember important information. Last Reviewed Date: 2025 00:00:00 ? 2024 [employer]. All rights reserved. This information is not intended as a substitute for professional medical care. Always follow your healthcare provider's instructions. Keiko [id number] 16:35:22 Images from the original note were not included. [id number] Discharge Instructions for a Brain Tumor You have been diagnosed with a brain tumor. This is the abnormal and uncontrolled growth of cells in the brain. Treatment for brain tumors may include surgery, chemotherapy, radiation therapy, or a combination of these. Be sure to follow all the instructions given to you by your doctors. The guidelines here are for general care. Make sure you: ? Understand what you can and cannot do. ? Keep your follow-up appointments. ? Contact your doctor if you have any questions or are concerned about any symptoms or changes in how you feel. Home care after surgery Surgery is often done to diagnose or remove some or all of a brain tumor. Surgery is done through a small or large opening (craniotomy) in your skull. Recovery depends on many things, such as your overall health, the size of the tumor, where the tumor is in your brain, and the extent of the surgery. Talk with your doctor about what to do at home following surgery. They may recommend the following: ? Slowly increase your activity. ? Don?t drive until your doctor says it?s okay. ? If you have stitches or cyrus, ask when they'll be removed. ? Care for the incision and change any dressings as instructed. ? Shower or bathe as instructed by your care team. When your team says it's okay, you may wash your hair with mild soap. Pat the surgery area dry. Don?t use oils, powders, lotions, or creams on your incision. ? Don?t lift anything heavy until you?re told you can. ? Take your medicines exactly as directed. If you have side effects, contact your doctor. Don't stop taking your medicines. ? Check the medicines you may be sent home with. It's possible you may already have the medicine at home. Pay special attention so you don't take an extra dose of your medicine. ? You may need to be weaned off certain medicines, such as steroids and antiseizure medicine. Make sure to get clear instructions from your doctor. Home care after chemotherapy Chemotherapy side effects depend on the types and doses of the medicines and how you get them. Talk with your doctor about what to do at home after getting chemotherapy for a brain tumor. They will likely advise the following: Prevent mouth sores Many people get mouth sores during chemotherapy. So, don?t be discouraged if you do, even if you are following all your doctor's instructions. Do the following to help prevent mouth sores or to ease discomfort: ? Surprise your teeth with a soft-bristle toothbrush after every meal. ? Don?t use dental floss if your platelet count is low because you'll be at increased risk of bleeding. Your doctor will tell you if this is the case. ? Use an oral swab or special soft toothbrush if your gums bleed during regular brushing. ? Use any mouthwashes given to you as directed. Don't use mouthwashes that contain alcohol. ? Use salt and baking soda to clean your mouth. Mix 1 teaspoon of salt and 1 teaspoon of baking soda with a quart of water. Swish and spit as often as you like. ? Look for white patches in your mouth and on your tongue. This can be a sign of fungal infection, a common side effect of chemotherapy. Be sure to tell your doctor about these patches. You may need medicine to help you fight the fungal infection. Manage other side effects ? It's normal to feel tired. Ask your doctor about exercise. Exercise keeps you strong and keeps your heart and lungs active. It also helps reduce fatigue. Try to take a walk every day. ? Let your doctor know if you have a fever or your throat is sore. You may have an infection that needs treatment. ? Remember, many people feel sick and lose their appetites during treatment. Eat small meals several times a day to keep up your strength: o Choose bland foods with little taste or smell if you are reacting strongly to food. o Be sure to cook all food thoroughly. This kills bacteria and helps you prevent infection. o Eat foods that are soft. They are less likely to cause mouth, throat, and stomach irritation. ? Keep clean. During treatment, your body can?t fight germs very well: o Wash your hands often with soap and clean water. Be sure to wash your hands after using the bathroom and before eating. o Take short baths or showers with warm water. Don't use very hot or cold water. o Use moisturizing soap. Treatment can make your skin dry. o Use lotion several times a day to help relieve dry skin. Home care after radiation therapy Here?s what to do at home after radiation therapy for a brain tumor: Skin care ? Don?t scrub or use soap on the treated area. ? Ask your therapy team which soaps, shampoo, and lotion to use. ? Protect the treated area from the sun. Ask your therapy team about using sunscreen. ? Don?t remove ink toledo unless your radiation therapist says it?s okay. Don?t scrub or use soap on the toledo when you wash. Let the water run over them and pat them dry. ? Protect your skin from heat or cold. Don't use hot tubs, saunas, heating pads, or ice packs. Other home care tips after treatment ? Stock up on [id number]-[id number] foods. ? Eat foods high in protein and calories. ? Drink plenty of water and other fluids, unless directed otherwise. ? Ask your doctor before taking any vitamins, minerals, herbs, or supplements. ? Be prepared for hair loss in the area being treated. Some people choose to get a wig or scarf. When to contact your doctor Contact your doctor right away if you have any of the following: ? Signs of infection around the surgical incision (including redness, drainage, warmth, or pain) ? An incision that opens up or pulls apart ? Confusion or hallucinations ? Fainting or blacking out ? Loss of memory or trouble speaking ? Double or blurred vision; partial or total loss of vision ? Numbness, tingling, or weakness in your face, arms, hands, legs, or feet ? Stiffness in your neck ? Fever of 100.4?F (38?C) or higher, or as directed by your doctor ? Chills ? Severe sensitivity to light (photophobia) or severe headache ? Seizure ? Trouble controlling your bowels or bladder ? Headaches that don't go away, or that get worse ? Extreme tiredness (fatigue) ? Nausea, vomiting, or diarrhea that doesn't go away ? New rash ? Any pain, warmth, redness, or swelling in your lower legs or calves (could be signs of a blood clot) ? New cough or shortness of breath ? Sore throat or white patches in your mouth ? Pain or burning with urination ? New or uncontrolled pain Last Reviewed Date: 2024 00:00:00 ? [id number] [employer]. All rights reserved. This information is not intended as a substitute for professional medical care. Always follow your healthcare professional's instructions. [id number] 16:11:51 Report given to HUDSON) [facility]2025-10-03 15:27:43 The patient is Moderately Stable - Low risk of patient condition declining or worsening The patient's goals for the shift include REST The clinical goals for the shift include NEURO SAFETY Problem: Pain - Adult Goal: Verbalizes/displays adequate comfort level or baseline comfort level Outcome: Progressing Problem: Safety - Adult Goal: Free from fall injury Outcome: Progressing Problem: Discharge Planning Goal: Discharge to home or other facility with appropriate resources Outcome: Progressing Problem: Chronic Conditions and Co-morbidities Goal: Patient's chronic conditions and co-morbidity symptoms are monitored and maintained or improved Outcome: Progressing Problem: Knowledge Deficit Goal: Patient/family/caregiver demonstrates understanding of disease process, treatment plan, medications, and discharge instructions Outcome: Progressing Problem: Potential for Infection Goal: Remains infection free Outcome: Progressing Problem: Inadequate Airway Clearance Goal: Patient will maintain patent airway Outcome: Progressing Goal: Patient will achieve/maintain normal respiratory rate/effort Outcome: Progressing Problem: Insufficient Fluid Volume Goal: Fluid and electrolyte balance are achieved/maintained Outcome: Progressing Problem: Insufficient Nutritional Intake Goal: Patient's nutritional intake is adequate Outcome: Progressing Goal: Mobility/activity is maintained at optimum level for patient Outcome: Progressing Problem: Inadequate Tissue Perfusion - Venous Goal: Tissue perfusion is adequate - venous Outcome: Progressing Problem: Activity Intolerance/Impaired Mobility Goal: Mobility/activity is maintained at optimum level for patient Outcome: Progressing Goal: Maintains or returns to baseline bowel function Outcome: Progressing Goal: Maintains or returns to baseline bladder function Outcome: Progressing Problem: Altered Body Image Goal: Verbalizes feelings about physical appearance Outcome: Progressing Problem: Pain - Adult Goal: Verbalizes/displays adequate comfort level or baseline comfort level Outcome: Progressing Problem: Safety - Adult Goal: Free from fall injury Outcome: Progressing Problem: Discharge Planning Goal: Discharge to home or other facility with appropriate resources Outcome: Progressing Problem: Chronic Conditions and Co-morbidities Goal: Patient's chronic conditions and co-morbidity symptoms are monitored and maintained or improved Outcome: Progressing Problem: Knowledge Deficit Goal: Patient/family/caregiver demonstrates understanding of disease process, treatment plan, medications, and discharge instructions Outcome: Progressing Problem: Potential for Infection Goal: Remains infection free Outcome: Progressing Problem: Inadequate Airway Clearance Goal: Patient will maintain patent airway Outcome: Progressing Goal: Patient will achieve/maintain normal respiratory rate/effort Outcome: Progressing Problem: Insufficient Fluid Volume Goal: Fluid and electrolyte balance are achieved/maintained Outcome: Progressing Problem: Insufficient Nutritional Intake Goal: Patient's nutritional intake is adequate Outcome: Progressing Goal: Mobility/activity is maintained at optimum level for patient Outcome: Progressing Problem: Inadequate Tissue Perfusion - Venous Goal: Tissue perfusion is adequate - venous Outcome: Progressing Problem: Activity Intolerance/Impaired Mobility Goal: Mobility/activity is maintained at optimum level for patient Outcome: Progressing Goal: Maintains or returns to baseline bowel function Outcome: Progressing Goal: Maintains or returns to baseline bladder function Outcome: Progressing Problem: Altered Body Image Goal: Verbalizes feelings about physical appearance Outcome: Progressing [facility]2025-10-03 00:10:34 The patient is The patient's goals for the shift include REST/COMFORT The clinical goals for the shift include NEURO SAFETY Over the shift, the patient did not make progress toward the following goals. Barriers to progression include . Recommendations to address these barriers include . [facility]2025-10-02 08:00:55 Problem: Pain - Adult Goal: Verbalizes/displays adequate comfort level or baseline comfort level Outcome: Progressing Problem: Safety - Adult Goal: Free from fall injury Outcome: Progressing Problem: Discharge Planning Goal: Discharge to home or other facility with appropriate resources Outcome: Progressing Problem: Chronic Conditions and Co-morbidities Goal: Patient's chronic conditions and co-morbidity symptoms are monitored and maintained or improved Outcome: Progressing Problem: Knowledge Deficit Goal: Patient/family/caregiver demonstrates understanding of disease process, treatment plan, medications, and discharge instructions Outcome: Progressing Problem: Potential for Infection Goal: Remains infection free Outcome: Progressing Problem: Inadequate Airway Clearance Goal: Patient will maintain patent airway Outcome: Progressing Goal: Patient will achieve/maintain normal respiratory rate/effort Outcome: Progressing Problem: Insufficient Fluid Volume Goal: Fluid and electrolyte balance are achieved/maintained Outcome: Progressing Problem: Insufficient Nutritional Intake Goal: Patient's nutritional intake is adequate Outcome: Progressing Goal: Mobility/activity is maintained at optimum level for patient Outcome: Progressing Problem: Inadequate Tissue Perfusion - Venous Goal: Tissue perfusion is adequate - venous Outcome: Progressing Problem: Activity Intolerance/Impaired Mobility Goal: Mobility/activity is maintained at optimum level for patient Outcome: Progressing Goal: Maintains or returns to baseline bowel function Outcome: Progressing Goal: Maintains or returns to baseline bladder function Outcome: Progressing Problem: Altered Body Image Goal: Verbalizes feelings about physical appearance Outcome: Progressing [facility]2025-10-02 02:01:42 MRI completed. VS per flowsheet. Report/handoff given to Maico CONRAD. Pt transferred back to [address] [place] [address] via hospital bed with monitor in place and RN bedside. [facility]MeThe [facility] [id number] 00:56:28 Pt received in MRI via hospital bed with monitor in place and RN bedside. VSS. Report/handoff from Maico CONRAD. Pt educated/instructed re exam. Transferred to scanner table and positioned for comfort. [facility]2025-10-01 19:27:41 The patient is Moderately Stable - Low risk of patient condition declining or worsening The patient's goals for the shift include adequate rest and comfort The clinical goals for the shift include control or manage post surgical / anesthesia side effects, pain management, adedquate rest and comfort, stable neujro and hemodynamics exams as per ordered Over the shift, the patient did not make progress toward the following goals. Barriers to progression include activity intolerance related to mild right side weakness, adequate rest and comfort. Recommendations to address these barriers include impart plan of care: Purwuick in place explained purpose verbalized understanding as noted, fall prevention related gait imbalance as noted, safety, comfort and care. [facility]2025-10-01 07:13:11 Problem: Pain - Adult Goal: Verbalizes/displays adequate comfort level or baseline comfort level Outcome: Adequate for Discharge Problem: Safety - Adult Goal: Free from fall injury Outcome: Adequate for Discharge Problem: Discharge Planning Goal: Discharge to home or other facility with appropriate resources Outcome: Adequate for Discharge Problem: Chronic Conditions and Co-morbidities Goal: Patient's chronic conditions and co-morbidity symptoms are monitored and maintained or improved Outcome: Adequate for Discharge Problem: Knowledge Deficit Goal: Patient/family/caregiver demonstrates understanding of disease process, treatment plan, medications, and discharge instructions Outcome: Adequate for Discharge Problem: Potential for Infection Goal: Remains infection free Outcome: Adequate for Discharge Problem: Inadequate Airway Clearance Goal: Patient will maintain patent airway Outcome: Adequate for Discharge Goal: Patient will achieve/maintain normal respiratory rate/effort Outcome: Adequate for Discharge Problem: Inadequate Breathing Pattern Goal: Patient will maintain effective ventilation Outcome: Adequate for Discharge Problem: Insufficient Fluid Volume Goal: Fluid and electrolyte balance are achieved/maintained Outcome: Adequate for Discharge Problem: Insufficient Nutritional Intake Goal: Patient's nutritional intake is adequate Outcome: Adequate for Discharge Goal: Mobility/activity is maintained at optimum level for patient Outcome: Adequate for Discharge Problem: Inadequate Tissue Perfusion - Venous Goal: Tissue perfusion is adequate - venous Outcome: Adequate for Discharge Problem: Activity Intolerance/Impaired Mobility Goal: Mobility/activity is maintained at optimum level for patient Outcome: Adequate for Discharge Goal: Maintains or returns to baseline bowel function Outcome: Adequate for Discharge Goal: Maintains or returns to baseline bladder function Outcome: Adequate for Discharge Problem: Altered Body Image Goal: Verbalizes feelings about physical appearance Outcome: Adequate for Discharge [facility]2025-10-01 05:09:45 The patient is Moderately Stable - Low risk of patient condition declining or worsening The patient's goals for the shift include adequate rest and comfort The clinical goals for the shift include control or manage post surgical / anesthesia side effects, pain management, adedquate rest and comfort, stable neujro and hemodynamics exams as per ordered Over the shift, the patient did not make progress toward the following goals. Barriers to progression include nausea and vomiting, intermittent pain, activity intolerance. Recommendations to address these barriers include safety, promote care and comfort. [facility]2025-09-26 14:09:25* Imaging (Urgent) - Pending Review Specialty Diagnoses / Procedures Referred By Contac t Referred To Contact Radiology Diagnoses Neoplasm of unspecified behavior of brain Procedures MRI brain w IV contrast Earnest Grey MD [id number] [facility] [address] [place] [address] Phone: tel: fax: Referral ID Status Reason Start Date Expiration Date V isits Requested Visits Authorized [id number] Pending Review 02/07/2025 02/02/2026 1 1 [place] 10999-09-26 14:09:25 [id number] 14:09:25Upcoming Encounters Scheduled Orders Name Type Priority Associated Diagnoses Orde r Schedule MRI brain w IV contrast Imaging STAT Neoplasm of unspecif ied behavior of brain Expected: 02/07/2025, Expires: 02/07/2026 Scheduled Procedures Name Priority Associated Diagnoses Date/Ti me CRANIOTOMY, FOR INTRACRANIAL NEOPLASM EXCISION Malignant neoplasm of brain, unspecified Health Maintenance Due Date Last Done Comments Bone Density Scan 1955 CT Colonography 1955 Colonoscopy 1955 Colorectal Cancer Screening 1955 FIT-DNA 1955 FIT 1955 FOBT 1955 Lipid Panel 1955 Medicare Annual Wellness (AWV) 1955 Sigmoidoscopy 1955 Mammogram 1995 Influenza Vaccine (#1) 2025 4, 02/04/2023, 01/28/2022, Additional history exists DTaP/Tdap/Td Vaccines (2 - Td or Tdap) 07/09/2029 07/09/2019 Respiratory Syncytial Virus (RSV) Adult Series (1 - 1-dose 75+ series) 2030 Zoster Vaccines Completed 04/12/2021, 02/22/2021 Pneumococcal Vaccine: 50+ Years Completed 04/22/2024, 02/22/2021 HIB Vaccines Aged Out No longer eligi ble based on patient's age to complete this topic HPV Vaccines Aged Out No longer eligi ble based on patient's age to complete this topic Hepatitis A Vaccines Aged Out No long er eligible based on patient's age to complete this topic Hepatitis B Vaccines Aged Out No long er eligible based on patient's age to complete this topic IPV Vaccines Aged Out No longer eligi ble based on patient's age to complete this topic Meningococcal Vaccine Aged Out No kashmir isaac eligible based on patient's age to complete this topic Rotavirus Vaccines Aged Out No longer eligible based on patient's age to complete this topic [id number] 14:09:25 [id number] 14:09:25 Diagnosis Neoplasm of unspecified beha vior of brain [id number] 14:09:25 [id number] 12:55:22Upcoming Encounters Scheduled Orders Name Type Priority Associated Diagnoses Orde r Schedule MRI brain w and wo IV contrast Imaging Routine Mass of brain 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) Tremor Expected: 01/22/2025, Expires: 01/22/2026 Scheduled Referrals Name Type Priority Associated Diagnoses Orde r Schedule Ambulatory referral to Neurosurgery Outpatient Referral Routine Mass of brain 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) Tremor Expected: 01/22/2025 (Approximate), Expires: 01/22/2026 Health Maintenance Due Date Last Done Comments Bone Density Scan 1955 CT Colonography 1955 Colonoscopy 1955 Colorectal Cancer Screening 1955 FIT-DNA 1955 FIT 1955 FOBT 1955 Lipid Panel 1955 Medicare Annual Wellness (AWV) 1955 Sigmoidoscopy 1955 Hepatitis A Vaccines (1 of 2 - Risk 2-dose series) 1974 Mammogram 1995 Hepatitis B Vaccines (1 of 3 - Risk 3-dose series) 2015 Influenza Vaccine (#1) 2025 4, 02/04/2023, 01/28/2022, Additional history exists DTaP/Tdap/Td Vaccines (2 - Td or Tdap) 07/09/2029 07/09/2019 Respiratory Syncytial Virus (RSV) Adult Series (1 - 1-dose 75+ series) 2030 Zoster Vaccines Completed 04/12/2021, 02/22/2021 Pneumococcal Vaccine: 50+ Years Completed 04/22/2024, 02/22/2021 HIB Vaccines Aged Out No longer eligi ble based on patient's age to complete this topic HPV Vaccines Aged Out No longer eligi ble based on patient's age to complete this topic IPV Vaccines Aged Out No longer eligi ble based on patient's age to complete this topic Meningococcal Vaccine Aged Out No kashmir isaac eligible based on patient's age to complete this topic Rotavirus Vaccines Aged Out No longer eligible based on patient's age to complete this topic [id number] 12:55:22 Diagnosis Mass of brain - Primary Unspecified condition of brain Nontraumatic subcortical hem orrhage of left cerebral hemisphere (HCC) Tremor Abnormal involuntary movements [id number] 12:55:22 [id number] 12:55:22* Imaging (Routine) - Pending Review Specialty Diagnoses / Procedures Referred By Alfonso kimble Referred To Contact Radiology Diagnoses [place] of brain 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) Tremor Procedures MRI brain w and wo IV contrast Wild Armando MD [address] [place] [address] Phone: tel: fax: Referral ID Status Reason Start Date Expiration Date V isits Requested Visits Authorized [id number] Pending Review 01/22/2025 01/17/2026 1 1 * Consultation (Routine) - Pending Review Specialty Diagnoses / Procedures Referred By Alfonso kimble Referred To Contact Neurosurgery Diagnoses Mass of brain 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) Tremor Wild Armando MD [address] [place] [address] Phone: tel: fax: Earnest Grey MD [address] [facility] [address] [place] [address] Phone: tel: fax: Referral ID Status Reason Start Date Expiration Date Visits Requested Visits Authorized [id number] Pending Review Specialty Services Required 01/22/2025 01/17/2026 99 99 [id number] 12:55:22* [facility]enPaidrxq0267-96-40 12:55:22 [facility]enQzjgcaa2977-85-75 12:55:22* Wild Armando MD - 01/22/2025 10:45 AM CDT History of Present Illness HPI The patient is a 69-year-old female presenting for follow-up on tremor. The patient reports a sudden onset of a clumsiness R hand, which she discovered while applying makeup about 9 months ago. She describes the tremor as appearing "all of a sudden," noting that it was not present one day and then visible the next. She denies any prior symptoms or changes in facial appearance that would have indicated the presence of the lesion before its sudden appearance. 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 The imaging showed calcium deposits, hemorrhage, and surrounding swelling. A previous CT scan from 2021 did not show this lesion. I obtained consent from the Patient or Surrogate Decision Maker to record and utilize a recording chief nurse executive to assist with creation of documentation of the visit. Allergies as of 01/22/2025 (No Known Allergies) has a current medication list which includes the following prescription(s): aspirin ec, bupropion sr, hydralazine, lisinopril-hydrochlorothiazide, metformin, multivitamin, repatha sureclick, and sertraline. Answers submitted by the patient for this visit: ESTABLISHED NEUROLOGY on 01/22/2025 10:[address] Wild Armando MD Review of Systems (Submitted on 01/20/2025) Speech difficulty: Yes Tremors: Yes Weakness: Yes Your note content is not currently available. Please go to the Ambienceactivity and push your notes to view them here. Vitals:01/22/25 1056 BP: 144/88 Pulse: 67 Resp: 16 Temp: 36.5 ?C (97.7 ?F) SpO2: 98% Neurological Exam Mental Status Awake and alert. Speech is normal. Cranial NervesCN II: Visual acuity is normal. CN III, IV, : Extraocular movements intact bilaterally. Pupils equal round and reactive to light bilaterally. CN VII: Right: There is central facial weakness. Mild. CN XII: Tongue midline without atrophy or fasciculations. Motor Clumsiness and dyspraxia on the right with an ataxic tremor component. SensoryLight touch is normal in upper and lower extremities. Temperature is normal in upper and lower extremities. Vibration is normal in upper and lower extremities. ReflexesDeep tendon reflexes: Brisk, Symmetric. GaitCasual gait: Reduced right arm swing. Results for orders placed or performed in visit on 12/17/24 Ceruloplasmin Collection Time: 12/18/24 8:45 AM Result Value Ref Range CERULOPLASMIN 31 14 - 48 mg/dL Copper Level Collection Time: 12/18/24 8:45 AM Result Value Ref Range Copper Lvl 116 70 - 175 mcg/dL C-Reactive Protein Collection Time: 12/18/24 8:45 AM Result Value Ref Range C-Reactive Protein <3.0 <8.0 mg/L Sedimentation Rate Collection Time: 12/18/24 8:45 AM Result Value Ref Range Sed Rate 11 0 - 30 mm/h Immunofixation (TEE) Collection Time: 12/18/24 8:45 AM Result Value Ref Range TEE Ser Interp SEE NOTE Thyroid Stimulating Hormone w/ Reflex Free T4 Collection Time: 12/18/24 8:45 AM Result Value Ref Range TSH 2.65 0.40 - 4.50 mIU/L Vitamin B1 Level Collection Time: 12/18/24 8:45 AM Result Value Ref Range VITAMIN B1 (THIAMINE) WHOLE BLOOD 174 78 - 185 nmol/L Vitamin B12 Level Collection Time: 12/18/24 8:45 AM Result Value Ref Range Vitamin B12 Lvl 794 200 - 1,100 pg/mL Zinc Level Collection Time: 12/18/24 8:45 AM Result Value Ref Range Zinc Lvl 76 60 - 130 mcg/dL Vitamin B6 Level Collection Time: 12/18/24 8:45 AM Result Value Ref Range Vitamin B6 114.3 (H) 2.1 - 21.7 ng/mL No MRI head results found for the past 12 months Labs:- Blood work: Normal Imaging:(01/08) MRI Brain (non-contrast): 2 cm lesion in the left basal ganglia with hemorrhage and surrounding edema (2021) CT Head: No abnormalities - CT Head: Partially calcified mass in the left basal ganglia measuring 2 cm with hemorrhage, surrounding edema, and some enhancement; possible second smaller enhancing lesion - Chest x-ray: Normal Assessment & Plan# Mass of brain (G93.89) # 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 Differential includes neoplasm (primary or metastatic), vascular malformation, or sequelae of hemorrhagic stroke. Lesion was not present on prior CT from 2021. - Order MRI with contrast to further characterize the lesion. - Refer to neurosurgery in [place] for evaluation and management. - Advised patient to obtain a CD of prior imaging for neurosurgical review. - Discussed potential etiologies, including malignancy, and the possibility of surgical intervention. - Advised patient to postpone travel to [place] on the to prioritize diagnostic workup and specialist evaluation. - Follow-up in 4-6 weeks. # Tremor (R25.1)Tremor is likely related to the underlying intracranial lesion. - Management contingent on further diagnostic clarification and neurosurgical recommendations. 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) Tremor Expected: 01/22/2025 (Approximate), Expires: 01/22/2026 Health Maintenance Due Date Last Done Comments Bone Density Scan 1955 CT Colonography 1955 Colonoscopy 1955 Colorectal Cancer Screening 1955 FIT-DNA 1955 FIT 1955 FOBT 1955 Lipid Panel 1955 Medicare Annual Wellness (AWV) 1955 Sigmoidoscopy 1955 Hepatitis A Vaccines (1 of 2 - Risk 2-dose series) 1974 Mammogram 1995 Hepatitis B Vaccines (1 of 3 - Risk 3-dose series) 2015 Influenza Vaccine (#1) 2025 4, 02/04/2023, 01/28/2022, Additional history exists DTaP/Tdap/Td Vaccines (2 - Td or Tdap) 07/09/2029 07/09/2019 Respiratory Syncytial Virus (RSV) Adult Series (1 - 1-dose 75+ series) 2030 Zoster Vaccines Completed 04/12/2021, 02/22/2021 Pneumococcal Vaccine: 50+ Years Completed 04/22/2024, 02/22/2021 HIB Vaccines Aged Out No longer eligi ble based on patient's age to complete this topic HPV Vaccines Aged Out No longer eligi ble based on patient's age to complete this topic IPV Vaccines Aged Out No longer eligi ble based on patient's age to complete this topic Meningococcal Vaccine Aged Out No kashmir isaac eligible based on patient's age to complete this topic Rotavirus Vaccines Aged Out No longer eligible based on patient's age to complete this topic [id number] 12:55:22 Diagnosis Mass of brain - Primary Unspecified condition of brain Nontraumatic subcortical hem orrhage of left cerebral hemisphere (HCC) Tremor Abnormal involuntary movements [id number] 12:55:22 [id number] 12:55:22* Imaging (Routine) - Pending Review Specialty Diagnoses / Procedures Referred By Alfonso kimble Referred To Contact Radiology Diagnoses Mass of brain 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) Tremor Procedures MRI brain w and wo IV contrast Wild Armando MD [address] [place] [address] Phone: tel: fax: Referral ID Status Reason Start Date Expiration Date V isits Requested Visits Authorized [id number] Pending Review 01/22/2025 01/17/2026 1 1 * Consultation (Routine) - Pending Review Specialty Diagnoses / Procedures Referred By Alfonso kimble Referred To Contact Neurosurgery Diagnoses Mass of brain 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) Tremor Wild Armando MD [address] [place] [address] Phone: tel: fax: Earnest Grey MD [address] [facility] [address] [place] [address] Phone: tel: fax: Referral ID Status Reason Start Date Expiration Date Visits Requested Visits Authorized [id number] Pending Review Specialty Services Required 01/22/2025 01/17/2026 99 99 [id number] 12:55:22* [id number] 12:55:22 [id number] 12:55:22* Wild Armando MD - 01/22/2025 10:45 AM CDT History of Present Illness HPI The patient is a 69-year-old female presenting for follow-up on tremor. The patient reports a sudden onset of a clumsiness R hand, which she discovered while applying makeup about 9 months ago. She describes the tremor as appearing "all of a sudden," noting that it was not present one day and then visible the next. She denies any prior symptoms or changes in facial appearance that would have indicated the presence of the lesion before its sudden appearance. 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 The imaging showed calcium deposits, hemorrhage, and surrounding swelling. A previous CT scan from 2021 did not show this lesion. I obtained consent from the Patient or Surrogate Decision Maker to record and utilize a recording chief nurse executive to assist with creation of documentation of the visit. Allergies as of 01/22/2025 (No Known Allergies) has a current medication list which includes the following prescription(s): aspirin ec, bupropion sr, hydralazine, lisinopril-hydrochlorothiazide, metformin, multivitamin, repatha sureclick, and sertraline. Answers submitted by the patient for this visit: ESTABLISHED NEUROLOGY on 01/22/2025 10:[address] Wild Armando MD Review of Systems (Submitted on 01/20/2025) Speech difficulty: Yes Tremors: Yes Weakness: Yes Your note content is not currently available. Please go to the Ambienceactivity and push your notes to view them here. Vitals:01/22/25 1056 BP: 144/88 Pulse: 67 Resp: 16 Temp: 36.5 ?C (97.7 ?F) SpO2: 98% Neurological Exam Mental Status Awake and alert. Speech is normal. Cranial NervesCN II: Visual acuity is normal. CN III, IV, : Extraocular movements intact bilaterally. Pupils equal round and reactive to light bilaterally. CN VII: Right: There is central facial weakness. Mild. CN XII: Tongue midline without atrophy or fasciculations. Motor Clumsiness and dyspraxia on the right with an ataxic tremor component. SensoryLight touch is normal in upper and lower extremities. Temperature is normal in upper and lower extremities. Vibration is normal in upper and lower extremities. ReflexesDeep tendon reflexes: Brisk, Symmetric. GaitCasual gait: Reduced right arm swing. Results for orders placed or performed in visit on 12/17/24 Ceruloplasmin Collection Time: 12/18/24 8:45 AM Result Value Ref Range CERULOPLASMIN 31 14 - 48 mg/dL Copper Level Collection Time: 12/18/24 8:45 AM Result Value Ref Range Copper Lvl 116 70 - 175 mcg/dL C-Reactive Protein Collection Time: 12/18/24 8:45 AM Result Value Ref Range C-Reactive Protein <3.0 <8.0 mg/L Sedimentation Rate Collection Time: 12/18/24 8:45 AM Result Value Ref Range Sed Rate 11 0 - 30 mm/h Immunofixation (TEE) Collection Time: 12/18/24 8:45 AM Result Value Ref Range TEE Ser Interp SEE NOTE Thyroid Stimulating Hormone w/ Reflex Free T4 Collection Time: 12/18/24 8:45 AM Result Value Ref Range TSH 2.65 0.40 - 4.50 mIU/L Vitamin B1 Level Collection Time: 12/18/24 8:45 AM Result Value Ref Range VITAMIN B1 (THIAMINE) WHOLE BLOOD 174 78 - 185 nmol/L Vitamin B12 Level Collection Time: 12/18/24 8:45 AM Result Value Ref Range Vitamin B12 Lvl 794 200 - 1,100 pg/mL Zinc Level Collection Time: 12/18/24 8:45 AM Result Value Ref Range Zinc Lvl 76 60 - 130 mcg/dL Vitamin B6 Level Collection Time: 12/18/24 8:45 AM Result Value Ref Range Vitamin B6 114.3 (H) 2.1 - 21.7 ng/mL No MRI head results found for the past 12 months Labs:- Blood work: Normal Imaging:(01/08) MRI Brain (non-contrast): 2 cm lesion in the left basal ganglia with hemorrhage and surrounding edema (2021) CT Head: No abnormalities - CT Head: Partially calcified mass in the left basal ganglia measuring 2 cm with hemorrhage, surrounding edema, and some enhancement; possible second smaller enhancing lesion - Chest x-ray: Normal Assessment & Plan# Mass of brain (G93.89) # 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 Differential includes neoplasm (primary or metastatic), vascular malformation, or sequelae of hemorrhagic stroke. Lesion was not present on prior CT from 2021. - Order MRI with contrast to further characterize the lesion. - Refer to neurosurgery in [place] for evaluation and management. - Advised patient to obtain a CD of prior imaging for neurosurgical review. - Discussed potential etiologies, including malignancy, and the possibility of surgical intervention. - Advised patient to postpone travel to [place] on the to prioritize diagnostic workup and specialist evaluation. - Follow-up in 4-6 weeks. # Tremor (R25.1)Tremor is likely related to the underlying intracranial lesion. - Management contingent on further diagnostic clarification and neurosurgical recommendations. [facility]2025-08-28 19:02:49* Imaging (Routine) - Incomplete Specialty Diagnoses / Procedures Referred By Alfonso t Referred To Contact Radiology Diagnoses 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) Procedures CT brain w and wo IV contrast Wild Armando MD [address] [place] [address] Phone: tel: fax: Referral ID Status Reason Start Date Expiration Date V isits Requested Visits Authorized [id number] Incomplete 01/09/2025 01/04/2026 1 1 [facility]2025-08-28 19:02:49Upcoming Encounters Scheduled Orders Name Type Priority Associated Diagnoses Orde r Schedule XR chest 2 views Imaging Routine Nontraumati c subcortical hemorrhage of left cerebral hemisphere (HCC) Expected: 01/09/2025, Expires: 01/09/2026 CT brain w and wo IV contrast Imaging Routine Nontraumatic subcort ical hemorrhage of left cerebral hemisphere (HCC) Expected: 01/09/2025, Expires: 01/09/2026 Creatinine, Serum Lab Routine Nontraumat ic subcortical hemorrhage of left cerebral hemisphere (HCC) Expected: 01/09/2025 (Approximate), Expires: 01/09/2026 Health Maintenance Due Date Last Done Comments Bone Density Scan 1955 CT Colonography 1955 Colonoscopy 1955 Colorectal Cancer Screening 1955 FIT-DNA 1955 FIT 1955 FOBT 1955 Lipid Panel 1955 Medicare Annual Wellness (AWV) 1955 Sigmoidoscopy 1955 Mammogram 1995 Influenza Vaccine (#1) 2025 4, 02/04/2023, 01/28/2022, Additional history exists DTaP/Tdap/Td Vaccines (2 - Td or Tdap) 07/09/2029 07/09/2019 Respiratory Syncytial Virus (RSV) Adult Series (1 - 1-dose 75+ series) 2030 Zoster Vaccines Completed 04/12/2021, 02/22/2021 Pneumococcal Vaccine: 50+ Years Completed 04/22/2024, 02/22/2021 HIB Vaccines Aged Out No longer eligi ble based on patient's age to complete this topic HPV Vaccines Aged Out No longer eligi ble based on patient's age to complete this topic Hepatitis A Vaccines Aged Out No long er eligible based on patient's age to complete this topic Hepatitis B Vaccines Aged Out No long er eligible based on patient's age to complete this topic IPV Vaccines Aged Out No longer eligi ble based on patient's age to complete this topic Meningococcal Vaccine Aged Out No kashmir isaac eligible based on patient's age to complete this topic Rotavirus Vaccines Aged Out No longer eligible based on patient's age to complete this topic [facility]enDdabohc9770-22-12 19:02:49 Diagnosis Nontraumatic subcortical hem orrhage of left cerebral hemisphere (HCC) - Primary [id number] 19:02:[address]08-05 17:46:22* Imaging (Routine) - Incomplete Specialty Diagnoses / Procedures Referred By Alfonso t Referred To Contact Radiology Diagnoses Tremor Memory loss Procedures MRI brain wo IV contrast Wild Armando MD [address] [place] [address] Phone: tel: fax: Referral ID Status Reason Start Date Expiration Date V isits Requested Visits Authorized [id number] Incomplete 12/17/2024 12/12/2025 1 1 [facility]Kuczipm6490-95-45 17:46:22* [facility] [id number] 17:46:22* Wild Armando MD - 12/17/2024 2:15 PM CDT Lauren Pink is a 69 y.o. female presenting with tremor and memory loss. History of Present Illness Memory Loss Tremor The patient is a 69-year-old female presenting with tremor and memory issues. The patient reports a tremor in her right (dominant) hand that began approximately nine months ago. She first noticed the tremor while applying makeup and now requires support from her left hand to steady her right hand. She also reports significant changes in her handwriting, describing it as "a lot smaller" and "hardly readable." She experiences cramping in her right hand and notes that it takes time to "loosen it up." The tremor is present in certain positions and is constant, but she does not notice it in her left hand. She has not undergone any tests for these symptoms and does not have a family history of tremors. She has been taking an [id number] supplement containing vitamins A, C, D3, E, thiamine, riboflavin, and B6, which she believes has helped with the tremor. She also reports memory issues, including difficulty finishing sentences and word-finding problems. 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 However, she notes that her writing difficulties are impacting her work, which involves a significant amount of paperwork. She has fallen a few times, including twice while bringing groceries into the house. She walks her dog twice a day for 30 minutes each time. She is currently taking medication for depression and hypertension, andmetformin for weight loss. She is scheduled to have blood work done tomorrow and had her last blood work approximately a year ago. Objective Past Medical History She has a past medical history of Depression, Diabetes mellitus (HCC), Hypertension, and Memory loss. Surgical HistoryShe has a past surgical history that includes Hysterectomy; Appendectomy; and Breast lumpectomy. Family HistoryFamily History: Problem Relation Name Age of Onset Colon cancer Mother Social History She reports that she has quit smoking. Her smoking use included cigarettes. She has been exposed to tobacco smoke. She has never used smokeless tobacco. She reports that she does not currently use alcohol. She reports current drug use. Drug: Marijuana. AllergiesPatient has no known allergies. MedicationsCurrent Outpatient Medications Medication Sig Dispense Refill aspirin EC 81 MG EC tablet Take 81 mg by mouth 1 time each day. buPROPion SR (Wellbutrin SR) 150 MG 12 hr tablet Take 2 tablets by mouth 1 time each day. hydrALAZINE (Apresoline) 25 MG tablet Take 1 tablet by mouth in the morning and 1 tablet in the evening. lisinopril-hydroCHLOROthiazide 20-12.5 MG tablet Take 1 tablet by mouth 1 time each day. metFORMIN (Glucophage) 500 MG tablet Take 500 mg by mouth in the morning and 500 mg at noon and 500 mg in the evening. Multiple Vitamin (multivitamin) tablet Take 1 tablet by mouth 1 time each day. [facility] SureClick 140 MG/ML Subcutaneous Solution Auto-injector Inject 140 mg under the skin every 14 days. sertraline (Zoloft) 25 MG tablet Take 1 tablet by mouth 1 time each day. No current facility-administered medications for this visit. Review of Systems Neurological: Positive for tremors. Musculoskeletal: (+) right hand crampingNeurological: (+) right hand tremor, (+) memory impairment, (+) word-finding difficulty, (+) handwriting difficulty, (+) falls, (-) left hand tremor Psychiatric: (+) depressed mood Last Recorded Vitals Vitals: 12/17/24 1427 BP: (!) 147/96 Pulse: 64 Resp: 16 Temp: 36.2 ?C (97.2 ?F) SpO2: 99% Physical ExamVitals reviewed. Constitutional: Appearance: Normal appearance. HENT: Head: Normocephalic. Eyes:General: Lids are normal. Extraocular Movements: Extraocular movements intact. Pupils: Pupils are equal, round, and reactive to light. Cardiovascular:Rate and Rhythm: Normal rate and regular rhythm. Pulmonary: Effort: Pulmonary effort is normal. Breath sounds: Normal breath sounds. Abdominal: General: Bowel sounds are normal. Musculoskeletal:General: Normal range of motion. Cervical back: Normal range of motion. Skin:General: Skin is warm and dry. Neurological:Motor: Motor strength is normal. Coordination: Coordination is intact. Deep Tendon Reflexes: Reflexes are normal and symmetric. Psychiatric:Mood and Affect: Mood normal. Speech: Speech normal. Thought Content: Thought content normal. Neurological ExamMental Status Awake, alert and oriented to person, place and time. Recalls 3 of 3 objects immediately. At 5 minutes recalls 3 of 3 objects. Speech is normal. Able to name objects and name parts of objects. Able to spell words backwards. Cranial NervesCN II: Visual acuity is normal. Visual bradford full to confrontation. CN III, IV, : Extraocular movements intact bilaterally. Normal lids and orbits bilaterally. Pupils equal round and reactive to light bilaterally. CN V: Facial sensation is normal. CN VII: Full and symmetric facial movement. CN VIII: Hearing is normal. CN IX, X: Palate elevates symmetrically. Normal gag reflex. CN XI: Shoulder shrug strength is normal. CN XII: Tongue midline without atrophy or fasciculations. MotorNormal muscle bulk throughout. Normal muscle tone. No abnormal involuntary movements. Strength is 5/5 throughout all four extremities. Mild postural tremor. SensorySensation is intact to light touch, pinprick, vibration and proprioception in all four extremities. ReflexesDeep tendon reflexes are 2+ and symmetric in all four extremities. Coordination Szstmb-wq-jcni, rapid alternating movements and xzob-nh-xcow normal bilaterally without dysmetria. GaitNormal casual, toe, heel and tandem gait. Relevant ResultsYour note content is not currently available. Please go to the [employer] activity and push your notes to view them here. Assessment & Plan # Tremor (R25.1) # Memory loss (R41.3) - Right hand tremor present for 9 months, worsened with specific positions and activities (e.g., applying makeup, writing); handwriting has become smaller and less legible; no tremor in left hand. - No family history of tremor; no prior diagnostic testing performed. - Differential diagnosis includes Parkinson's disease and tardive dyskinesia, but clinical presentation does not strongly support these; likely ET; MRI ordered to further evaluate. - Memory loss characterized by difficulty finishing sentences and word-finding problems; patient remains oriented to time, place, and person. - Ordered MRI of the brain. - Ordered laboratory tests to assess for metabolic or nutritional contributors to symptoms. - Discussed that clinical presentation does not strongly support Parkinson's disease or tardive dyskinesia. [id number] 17:46:22Upcoming Encounters Scheduled Orders Name Type Priority Associated Diagnoses Orde r Schedule Ceruloplasmin Lab Routine Tremor Memory loss Expected: 12/17/2024 (Approximate), Expires: 12/17/2025 Copper Level Lab Routine Tremor Memory loss Expected: 12/17/2024 (Approximate), Expires: 12/17/2025 C-Reactive Protein Lab Routine Tremor Memory loss Expected: 12/17/2024 (Approximate), Expires: 12/17/2025 Sedimentation Rate Lab Routine Tremor Memory loss Expected: 12/17/2024 (Approximate), Expires: 12/17/2025 Immunofixation (TEE) Lab Routine Tremor Memory loss Expected: 12/17/2024 (Approximate), Expires: 12/17/2025 Thyroid Stimulating Hormone w/ Reflex Free T4 Lab Routine Tremor Memory loss Expected: 12/17/2024 (Approximate), Expires: 12/17/2025 Vitamin B1 Level Lab Routine Tremor Memory loss Expected: 12/17/2024 (Approximate), Expires: 12/17/2025 Vitamin B12 Level Lab Routine Tremor Memory loss Expected: 12/17/2024 (Approximate), Expires: 12/17/2025 Zinc Level Lab Routine Tremor Memory loss Expected: 12/17/2024 (Approximate), Expires: 12/17/2025 Vitamin B6 Level Lab Routine Tremor Memory loss Expected: 12/17/2024 (Approximate), Expires: 12/17/2025 MRI brain wo IV contrast Imaging Routine Tremor Memory loss Expected: 12/17/2024, Expires: 12/17/2025 Health Maintenance Due Date Last Done Comments Bone Density Scan 1955 CT Colonography 1955 Colonoscopy 1955 Colorectal Cancer Screening 1955 FIT-DNA 1955 FIT 1955 FOBT 1955 Lipid Panel 1955 Medicare Annual Wellness (AWV) 1955 Sigmoidoscopy 1955 DTaP/Tdap/Td Vaccines (1 - Tdap) 1974 Mammogram 1995 Pneumococcal Vaccine: 50+ Ye ars (1 of 1 - PCV) 2005 Zoster Vaccines (1 of 2) 2005 Influenza Vaccine (#1) 2025 Respiratory Syncytial Virus (RSV) Adult Series (1 - 1-dose 75+ series) 2030 HIB Vaccines Aged Out No longer eligi ble based on patient's age to complete this topic HPV Vaccines Aged Out No longer eligi ble based on patient's age to complete this topic Hepatitis A Vaccines Aged Out No long er eligible based on patient's age to complete this topic Hepatitis B Vaccines Aged Out No long er eligible based on patient's age to complete this topic IPV Vaccines Aged Out No longer eligi ble based on patient's age to complete this topic Meningococcal Vaccine Aged Out No kashmir isaac eligible based on patient's age to complete this topic Rotavirus Vaccines Aged Out No longer eligible based on patient's age to complete this topic [id number] 17:46:22 Diagnosis Tremor - Primary Abnormal involuntary movements Memory loss [id number] 17:46:22 [facility]
[2025-02-14] MEDS ORDERED: ONDANSETRON 4 MG (ODT) TAB PO PRN (22:38)
[2025-02-14] MEDS ORDERED: REPATHA SURECLICK 140 MG SQ SCH (22:45)
[2025-02-15 00:30] VITALS: BMI 28.1
[2025-02-15 06:50] LABS: Albumin 3.6 g/dL (3.4-5.0); Anion Gap 7.2 mEq/L (5.0-15.0); BUN Blood Urea Nitrogen 23.0 mg/dL (7-18); Glucose Level 105.0 mg/dL (74-106); Magnesium 2.4 mg/dL (1.6-2.4); Potassium 4.2 mEq/L (3.5-5.1); Prealbumin 30.5 mg/dL (20-40)
[2025-02-15 07:21] LABS: Absolute Lymphocytes (CBC) 1.5 K/uL (0.7-4.9); Hematocrit 35.6 % (36.0-45.0); Hemoglobin 12.1 g/dL (12.0-15.0); MCH 32.4 pg (27.0-35.0); MCHC 34.1 g/dL (32.0-36.0); MCV 95.0 fL (80-100); MPV 9.4 fL (7.6-11.3); Nucleated RBC Absolute Count 0.0 (0-0); Nucleated Red Blood Cells % 0.0 % (0-0); RBC Red Blood Cell Count 3.74 M/uL (3.86-4.86); White Blood Count 13.90 thou/uL (4.3-10.9)
[2025-02-15] MEDS: SERTRALINE HCL 50 MG TAB PO SCH (07:58)
[2025-02-15] MEDS: FAMOTIDINE 20 MG TAB PO SCH (07:59)
[2025-02-15] MEDS: MULTIVITAMIN TAB PO SCH (07:59)
[2025-02-15] MEDS ORDERED: DSS PO SCH (08:00)
[2025-02-15] MEDS: DOCUSATE NA 100 MG CAP PO SCH (08:00)
[2025-02-15] MEDS: METFORMIN HCL 500 MG TAB PO SCH ×2 (08:00→16:49)
[2025-02-15] MEDS: levETIRAcetam 500 MG TAB PO SCH (08:00)
[2025-02-15] MEDS: HYDRALAZINE HCL 25 MG TABLET PO SCH (09:27)
[2025-02-15] MEDS: INSULIN REGULAR (HUMAN) 100 UNIT/ML SQ SCH (16:30)
[2025-02-15] MEDS: BUPROPRION HCL S.R. 150MG TAB PO SCH (20:07)
[2025-02-15] MEDS ORDERED: POLYETHYL GLY 3350 17 GM/DOSE PO PRN (22:39)
--- NOTE | 2025-02-15 23:27 | HP ---
Date of Admission: 02/14/2025 Time: 6:00 p.m. Chief Complaint: Brain tumor. "My right side is weak." History Of Present Illness: Ms. Odilia Pink is a 69-year-old patient with hypertension; diabetes mellitus; coronary artery disease; carotid stenosis, status post stents; depression who had a planned resection of a left basal ganglia mass done and she presented for that on 02/11/2025. Her clinical symptoms consisted of right hand clumsiness and expressive aphasia along with right facial weakness. Those symptoms developed insidiously, but progressively in December of this year when an MRI performed on January 08 identified hemorrhagic mass in the left basal ganglia measuring 2 cm with calcium deposits. There was surrounding edema. The mass was not present on the scan in 2021. On the 11 of February, she underwent left craniotomy for a transylvanian debulking of the mass. Postoperatively, she was admitted to the Neurosurgical ICU, received a Cardene drip for blood pressure management, which was weaned off on February 12. She had an elevated white blood cell count 20,017, potentially related to steroids, which she had been receiving preop and postoperatively. In addition, she had ongoing right facial and arm weakness with expressive aphasia and some mild dysphagia. She was put on Keppra for seizure prophylaxis and has not had a seizure. She did require pain control; control of her diabetes mellitus, on sliding scale; and aggressive bowel regimen. She was evaluated by the medical service and cleared and then evaluated by the rehabilitation service and found to be only able to ambulate 150 feet with moderate assistance. [id number] required moderate assistance. Transfers, moderate assistance; standby assistance for bed mobility; moderate assistance for dressing. She is functioning well below her baseline, which at home she is fully independent. She lives with her spouse in a multilevel home with 18 steps and was able to ambulate without an assistive device. Currently due to her significant decline relative to her baseline and her comorbid conditions, she is determined to be appropriate candidate for aggressive inpatient rehabilitation where she will receive physical, occupational, and speech therapy along with medical management, daily physician evaluation, and 24 hour nursing care. She will have social media editor evaluation and management for discharge planning to help her return towards her prior level of functioning and reduce the risk of rehospitalization. Past Medical History: As noted above including the hypertension, diabetes mellitus, anxiety, depression, dyslipidemia, and mild memory loss. She currently due to the mass, she has expressive aphasia, right face and arm weakness. Past Surgical History: Hysterectomy, appendectomy, breast lumpectomy, and craniotomy. Allergies: NO KNOWN DRUG ALLERGIES. Medications: Aspirin 81 mg daily, Wellbutrin 300 mg at bedtime, Decadron 4 mg twice daily, Colace 100 mg twice daily, Pepcid 20 mg daily, Apresoline 25 mg 3 times daily, hydrochlorothiazide 12.5 mg daily, Keppra 500 mg twice daily, Prinivil 20 mg daily, Centrum Silver 1 tablet daily, Zofran 4 mg every 8 hours, GlycoLax 17 g daily, and Zoloft 25 mg daily. Laboratory Studies: White blood cell count 13.9, hemoglobin 12.1, platelets 225. Sodium 136, potassium 4.2, chloride 105, carbon dioxide 28, BUN 23, creatinine 0.64, glucose ranged from 99 to 112, calcium 9.1. Magnesium 2.4. Albumin 3.6, prealbumin 30.5. X-ray/imaging: On 02/10/2025, brain MRI shows hemorrhagic mass with multiple areas of ring enhancement centered in the left basal ganglia with extension to the surrounding tissues consistent with a high-grade glial neoplasm or metastasis. The brain MRI on 02/13/2025 shows expected findings following left parietal craniotomy with partial resection of the left basal ganglia ring- enhancing mass with T2/FLAIR hyperintensity extending into the left frontal operculum, internal capsule, and left thalamus. There is residual homogeneous hemorrhagic tumor anteriorly and superiorly. Small focus of restricted diffusion along the posterior margin of the resection cavity concerning for postoperative ischemia. Unchanged questionable faint focus of contrast enhancement in the left jt with T2 signal changes, although could merely represent capillary telangiectasia. Attention on followup imaging is required. Family History: Noncontributory. Social History: The patient lives with in a two-story home with 18 steps. She does not smoke tobacco or drink alcoholic beverages. No IV drug use. Review of Systems: She reports facial weakness on the right and some strange numbness or tingling on the face and weakness in the right arm proximally and distally. Sensation is also slightly decreased in the right face and arm. Also, she did report difficulty getting her thoughts and words out. At times, words would come out confused. She said at 1 point, she called her current by the ex- 's name and she did apologize to him for that. Current Level Of Functioning: Currently, Ms. Pink is at a supervision level for eating and grooming, moderate assistance for bathing, upper and lower body dressing along with donning and doffing footwear. She is on a moderate assistance level for toileting, transfer from bed to chair, to wheelchair and dependent for toileting. Ambulation, she did cover 150 feet with a rolling walker with moderate assistance. Physical Examination: Vital Signs: Blood pressure is 143/69, pulse 68, respiratory rate 16, temperature 97.6, oxygen saturation 99%. General: Ms. Pink is resting comfortably in bed. She is in no acute distress. HEENT: She appears normocephalic, atraumatic. Sclerae anicteric. Oropharynx pink and moist. Neck: Supple. Chest: Clear. Heart: Regular. Extremities: Show no significant clubbing, cyanosis, or edema. Neurological: She has a depressed right nasolabial fold with moderate excursions on smiling. Right upper extremity proximally and distally, she has 3+ to 4-/5. The right lower extremity is 5-/5. On the left upper and lower extremities 5/5. She has decreased sensation to light touch and temperature in the right face compared to the left, slight decrease in the right arm compared to the left side. Coordination intact in the upper extremities. She says some difficulty initiating movement in the right upper extremity. She will be assessed for her gait with the gait belt and therapist in tow. Rehab And Medical Assessment And Plan: Ms. Pink is a 69-year-old patient admitted to the inpatient rehabilitation unit with impairment category 03, nontraumatic brain injury. Her impairment group code is 02.1, nontraumatic injury. 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 Her comorbid conditions include decreased mobility, decreased physical functioning, depression, anxiety, expressive aphasia. She has statin intolerance. She does not have diabetes mellitus. Her plan will be physical, occupational, and speech therapy 3.5 hours, 5 of 7 days. As she has had some bleed around the tumor, a repeat CT scan will be done for comparison from the last postoperative study. Currently, she is receiving aspirin 81 mg daily, also Eliquis for DVT prophylaxis, but we will again hold if there are signs of any worsening bleeding. She has Decadron 4 mg twice daily, Colace 100 mg twice daily. She will have Apresoline continued 25 mg 3 times daily, hydrochlorothiazide 12.5 mg daily for her blood pressure control, Keppra 500 mg twice daily for seizure prophylaxis, Prinivil 20 mg daily for blood pressure control. She has a multivitamin on board. Zofran for nausea and Zoloft for depression. Note that white blood cell count is elevated, likely related to steroid use. She will still have urine urinalysis to rule out a urinary tract infection. She has been receiving metformin that is likely related to her steroids elevating blood sugars, but currently blood sugars are within normal range. Comorbidities That Are Impacting Rehabilitation: Her expressive aphasia is mild. She may have some issues of dysphagia. She will be evaluated by Speech and if need be, a barium swallow study will be done, which is a modified study. Risk of an infection is present in addition to risk of hemorrhagic worsening in the SECURITY SYSTEMS TECHNICIAN and a noncontrast CT scan will be done and compared again to the last postoperative study. Rehab Specific Plan: Ms. Pink will have physical, occupational, and speech therapy 3.5 hours, 5 of 7 days to improve her ability to transfer from the bed to a chair, to a wheelchair, to a rolling walker, to get on and off the toilet, in and out of the shower. She will work with Therapy to dress upper and lower body, don and doff footwear safely without loss of balance and she will work with Speech to help with swallowing, expression, to work on expressive aphasia and to have good safety awareness and decision making, to reduce the risk of falling and injury. Note that if need be, she will have seizure precautions. Currently, she is on seizure prophylaxis. Ms. Pink has a good understanding of the process of admission to the inpatient rehabilitation unit and how she will benefit from physical, occupational, and speech therapy. She will have 24 hours a day, 7 days a week skilled rehabilitation nursing, daily physician evaluation and management, and social media editor evaluation and management for discharge planning, home equipment, and to continue therapy after discharge. If need be, the hospitalist service will be consulted. Barriers To Discharge: Currently, she does live in the home with 18 steps and will work hard on her being able to return home with managing steps safely. However, given the recent stroke and difficulty potentially initiating movement as she has basal ganglia involvement from the tumor, she may require medication adjustments such as parkinsonian-type medications to help if she has episodes of freezing, which could a challenge and increased risk of falling. Length Of Stay: Her length of stay is about 10 days. Disposition: Expected to go home with family and continue therapy via Home Health. Prognosis: Good. Code Status: Full code. Rehab Specific Goals: 1. Become independent with upper and lower body dressing and donning and doffing footwear. 2. Independently perform all activities of daily living. 3. Independently mobilize wheelchair 250 feet. Use a rolling walker for 250 feet and go up and down 10 steps with bilateral handrails. 4. Independently perform all cognitive functioning and safety awareness issues. Again, expression and comprehension to be at normal level and swallowing to be preserved without risk of aspiration for all consistencies. The above goals were reviewed with Ms. Pink and she is in agreement. By signing this document, I acknowledge I personally performed a full physical examination on Ms. Pink no later than 24 hours after her admission to the inpatient rehabilitation unit and determined that she is able to tolerate the above course of treatment at an intensive level for reasonable period of time. A detailed individualized plan of care for her will be completed by hospital day 4 based on her preadmission screen, history and physical, and therapy evaluations. ANTWAN Voice ID: [id number] DARIEL
[2025-02-16 06:11] LABS: Sqamous Epithelial None Seen /HPF (None Seen); Urine Crystals Unidentified Few /HPF (None Seen); Urine Culture Reflex Order NOT NEEDED; Urine Microscopic Reflex YN ORDER UMIC; Urine Yeast (Budding) Moderate /HPF (None Seen)
[2025-02-16] MEDS: APIXABAN 2.5 MG TABLET PO SCH (08:06)
[2025-02-16] MEDS: INSULIN REGULAR (HUMAN) 100 UNIT/ML SQ SCH (19:40)
--- NOTE | 2025-02-17 07:39 | RAD REPORT ---
Exam:Abdomen 1 View (KUB) Clinical history: Abdominal pain FINDINGS: The bowel gas pattern is unremarkable. A large amount stool is present throughout the colon. No significant calcification is displayed.
[2025-02-17] MEDS: ACETAMINOPHEN 500 MG TAB PO PRN (13:23)
--- NOTE | 2025-02-17 13:44 | RAD REPORT ---
EXAMINATION: Head Brain Wo Cont CLINICAL INDICATION: Female, 69 years old.headache TECHNIQUE: Axial CT images from the skull base to the vertex without intravenous contrast. Coronal an d sagittal reformatted images were created from the data set. One or more of the following dose reduction techniques were used: Automated exposure control, adjustment of the mA and/or kV according to patient size, and/or iterative reconstruction. Unless otherwise specified, incidental findings do not require dedicated imaging follow-up. [id number]. COMPARISON: 01/17/2025 FINDINGS: INTRACRANIAL: No acute intracranial hemorrhage. No acute large vascular territory infarct. No hydroce phalus. Redemonstrated calcified left basal ganglia mass which is unchanged. Small volume of extra-axial low-attenuation fluid as well as pneumocephalus predominantly at the left frontal lobe li griselda postoperative in some of which is probably some subacute subdural hematoma. This measures up to 7 mm in maximal thickness. Slight increased left to right midline shift measuring up to 6 mm, prev iously closer to 2 mm.. VASCULATURE: No visualized abnormalities in the arteries or dural venous sinuses. SCALP/SKULL: No calvarial fracture identified. No acute soft tissue abnormality. No interval left fr ontoparietal craniotomy. SINUSES: The visualized paranasal sinuses are mostly clear. No significant mastoid fluid. IMPRESSION: Interval left frontoparietal craniotomy. The calcified left basal ganglia mass and surrounding white matter hypoattenuation is not simply changed. Small volume of extra-axial fluid and pneumocephalus noted that is likely postsurgical. No acute intracranial hemorrhage identified. Slight left to right midline shift is increased from prior but remains mild. No hydrocephalus.
--- NOTE | 2025-02-18 00:58 | PN ---
Date of Progress Note: 02/17/2025 Time Of Service: 1:25. Subjective: Ms. Pink is resting in bed. Still has the right-sided facial drooping and right arm weakness from her GB resection in the left basal ganglia. She did feel there was now a new headache as she has had compared to previously. A head CT scan was done. The study showed interval left fro ntoparietal craniotomy. There is calcified left basal ganglia mass surrounding white matter, hypoatt enuation is not changed. A small volume of extra-axial fluid and pneumocephalus noted, likely postsu rgical. No acute intracranial hemorrhage identified. Slight [id number] midline shift is increase d from prior study, but remains mild. No hydrocephalus. She also had a KUB study done earlier today for ruling out constipation. This study did show a large amount of stool present throughout the col on. No significant calcification identified. Bowel gas pattern was unremarkable. Objective: She reports the headache and some difficulty having bowel movements. No fevers or chills . No myalgias, arthralgias, and no rash. No psychiatric complaints. Just of course the right-sided weakness, face, arm, or leg from her GBM area and resection. Physical Examination: Vital Signs: Blood pressure 144/77, pulse 67, respiratory rate 18, temperature 98.1, oxygen saturati on 98%. General: Again, Ms. Pink is resting comfortably. She does have significant decrease in the righ t nasolabial fold, decrease in sensation in the right compared to the left face. She has around 4/5 strength in the right upper extremity proximally and distally versus left side 5/5. Lower extremitie s, 5-/5 bilaterally. No new findings otherwise. Laboratory Studies: No new laboratory studies except blood sugars ranged from 97 to 118. Medications: Tylenol 500 mg every 4 hours as needed, Eliquis 2.5 mg twice daily, aspirin 81 mg daily , Wellbutrin 300 mg at bedtime, Decadron 4 mg twice daily, Colace 100 mg twice daily, Pepcid 20 mg da ysabel, Apresoline 25 mg 3 times daily, hydrochlorothiazide 12.5 mg daily, Keppra 500 mg twice daily, Pr inivil 20 mg daily, Centrum Silver 1 tablet daily, Zofran 4 mg every 8 hours as needed, sertraline 25 mg daily. Progress Made With Physical And Occupational Therapy: With physical therapy today, multiple sit-to-s tand transfers and [id number]-uq-[id number] transfers done with standby assistance to modified independence. S he ambulated 500 feet with contact guard assistance to standby assistance. She did have right toe dr agging multiple times during gait training, potentially related to the right lower extremity weakness from GBM on the left. Regarding her occupational therapy, she did ambulate with a walker to and fro m the gym with contact guard assistance. She stood at the raised table, 10 minutes twice and 5 minut es with contact guard assistance. No loss of balance. Assessment And Plan: Ms. Pink is a 69-year-old patient in the rehabilitation unit with a left ba lizeth ganglia GBM that is resected. She does have residual right face and arm more than leg weakness, numbness, and risk of seizures are present, but no current seizures. She otherwise has decreased mob ility, decreased physical functioning, hypertension, nausea, constipation on KUB and Decadron present to help with edema related to her tumor and she has Eliquis and aspirin for stroke and DVT risk redu ction. Her plan again continue with therapy 3 hours a day, 5 of 7 days, and all medications which reyna ve been noted. SAVANNA/BENITEZ Voice ID: [id number] Report ID: [id number]
--- NOTE | 2025-02-18 23:14 | PN ---
Date of Progress Note: 02/18/2025 Time: 1:40 p.m. Subjective: Ms. Salinas is resting comfortably in her room. 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 Otherwise, she is in good spirits in terms of her therapy. Objective: She denies any fevers, chills, nausea, vomiting, myalgias, arthralgias, rash or psychiatr ic complaints. Physical Examination: Vital Signs: Blood pressure is 138/66, pulse 78, respiratory rate 16, temperature 97.5, oxygen satur ation 99%. General: Ms. Salinas is resting comfortably in a chair beside bed. She is waiting for another ther apy session to continue. HEENT: She is normocephalic, atraumatic. Extremities: She does have the right nasolabial fold decrease and also right hand weakness with some decreased dexterity. Strength is at least 3/5 to 3+, lower extremity on the right 4+ to 5-. Laboratory Studies: No new laboratory studies except blood sugars ranged from 90-118 and no new x-ra ys or imaging. Medications: Have been reviewed and are unchanged. Progress Made With Physical, Occupational, And Speech Therapy: With physical therapy today, she was able to ambulate 100 feet 3 times with contact guard assistance using a rolling walker and also she d id sit to stand independently and ambulated another 385 feet and 325 feet with standby assistance. S he was able to go up and down 20 steps with bilateral handrails with independence. With her occupati onal therapy, supervision for [id number] transfers, ambulated from room to gym with a rolling walke r with supervision and she did grasp with right hand, [id number] movement 3 times to improve her _ . She did work with Speech and weekly assessments for her. She did get 23/30 on the SLUMS. The goal is to improve that. She did score at 15/15 on the BIMS. Assessment And Plan: Ms. Salinas is a 69-year-old patient in the rehabilitation unit with GBM, left insular basal ganglia with right-sided face and arm weakness more than the leg. She still has mild decreased mobility, decreased physical functioning, hypertension, , protein malnutrition, a nd mildly elevated white blood cell count. She has normal protein level. She does have mildly eleva tyrell white blood cell count, likely related to steroids, related to GBM. She will continue with physical and occupational therapy and speech and continue all comorbid condition medications inc luding for DVT prophylaxis, which have been noted. SAVANNA/BENITEZ Voice ID: [id number] Report ID: [id number]
[2025-02-19 06:39] LABS: Absolute Lymphocytes (CBC) 4.2 K/uL (0.7-4.9); Hematocrit 36.7 % (36.0-45.0); Hemoglobin 12.2 g/dL (12.0-15.0); MCH 31.6 pg (27.0-35.0); MCHC 33.2 g/dL (32.0-36.0); MCV 95.3 fL (80-100); MPV 8.1 fL (7.6-11.3); Nucleated RBC Absolute Count 0.0 (0-0); Nucleated Red Blood Cells % 0.0 % (0-0); RBC Red Blood Cell Count 3.85 M/uL (3.86-4.86); White Blood Count 16.70 thou/uL (4.3-10.9)
[2025-02-19 07:02] LABS: Albumin 3.3 g/dL (3.4-5.0); Anion Gap 9.7 mEq/L (5.0-15.0); BUN Blood Urea Nitrogen 20.0 mg/dL (7-18); Glucose Level 89.0 mg/dL (74-106); Magnesium 2.1 mg/dL (1.6-2.4); Potassium 3.7 mEq/L (3.5-5.1); Prealbumin 41.3 mg/dL (20-40)
[2025-02-19 09:44] LABS: Differential Total Cells Count 100
[2025-02-19 09:45] LABS: Segmented Neutrophils 54 % (40-80)
[2025-02-19 09:50] LABS: Blood Morphology Comment NOT SEEN (NOT SEEN)
--- NOTE | 2025-02-19 23:49 | PN ---
Date of Progress Note: 02/19/2025 Time: 1:25 p.m. Subjective: Ms. Salinas is doing very well. Sitting in a chair beside the bed between therapy earl spring. Still has moderate right facial weakness, right arm weakness, and less right leg weakness from her left insula basal ganglia glioblastoma that has been partially resected. She has no new complai nts. Objective: No fevers, chills, nausea, vomiting, myalgias, or arthralgias. Physical Examination: Vital Signs: Blood pressure 153/69, pulse 72, respiratory rate 16, temperature 97.6, oxygen saturati on 98%. General: Ms. Salinas has significant right facial weakness including upper and lower face and moder ate right hand weakness unchanged. Extremities: Right lower extremity is much stronger than the right upper extremity. She did not hav e tool driving with therapy as she ambulated today. Laboratory Studies: Her white blood cell count did go up to 16.7. She is on steroids for her GBM. Her neutrophils 64 normal and lymphocytes 25, normal, likely related again to steroids. Hemoglobin 1 2.1, hematocrit 36.7, platelets 272. Her sodium is 136, potassium 3.7, chloride 103, carbon dioxide 27, BUN 20, creatinine 0.8, glucose ranged from 87 to 99. Hemoglobin A1c 5.0. Her calcium 8.2, magn esium 2.1, albumin 3.3. Prealbumin is elevated to 41.1. X-ray imaging, no new x-rays or imaging. Progress Made With Physical, Occupational, And Speech Therapy: With physical therapy today, she was able to do multiple dlpqkl-hq-svp transfers independently, perform multiple kin-vc-dnsww transfers in dependently, simulated car transfer done independently. She ambulated with a rolling walker 300 feet twice, 500 feet twice, and 325 feet independently. She did not have toll driving. She did go up an d down 20 steps twice with bilateral handrails independently. With her occupational therapy, rosa clarke with hiz-in-fscdj transfers. She ambulated from room to shower with independence and she was ab le to perform dressing upper and body with independence, bathing with independence. With speech, she was able to recall 4 of 4 unrelated items after 3-minute delay and moderate to minimum assistance. However, she is only able to recall 3 of 4 after another 5 minutes. She did divergent naming tasks w ith 80% accuracy. Word finding skills at 70% accuracy with moderate assistance. Assessment And Plan: Ms. Salinas is a 69-year-old patient with GBM of the left insular basal gangli a thalamic region, that has been partially resected. She has right facial weakness, right arm weakne ss, and mild slurred speech. No dysphagia. She has much improved debility and decreased mobility wi th decreased physical functioning, all improved. Still has some depression, risk of stroke. She is on Eliquis for that. She has Colace for stool softening. Apresoline and hydrochlorothiazide for blo od pressure control. She has Keppra for seizure prophylaxis. Prinivil also added now for blood pres sure control and blood pressure has been elevated. She has Zofran for nausea. Zoloft again for mood . Her plan will be to continue with physical and occupational therapy 3 hours a day, 5 of 7 days. S he has a list of comorbid condition medications which have been done that will be continued. She is actually doing very well and after discharge, she will have outpatient therapy at [facility]. SAVANNA/BENITEZ Voice ID: [id number] Report ID: [id number]
[2025-02-20] MEDS: ASPIRIN EC 81 MG TAB PO SCH (08:16)
[2025-02-20 09:15] VITALS: BP 127/60; TEMP 97.5
== END 2025-02-20 10:48 | disposition home or self-care (01) | DRG 949 ==
LOC: 5TH 21:05
PROVIDERS: ADMIT Psychiatry & Neurology Neurology with Special Qualifications in Child Neurology; ATTEND Psychiatry & Neurology Neurology with Special Qualifications in Child Neurology
DX: Z48.3 Aftercare following surgery for neoplasm (principal); E46 Unspecified protein-calorie malnutrition; R47.01 Aphasia; R53.1 Weakness; R13.10 Dysphagia, unspecified; R29.810 Facial weakness; R20.0 Anesthesia of skin; R41.3 Other amnesia; R53.81 Other malaise; R47.81 Slurred speech; R51.9 Headache, unspecified; I10 Essential (primary) hypertension; F41.9 Anxiety disorder, unspecified; F32.A Depression, unspecified; R11.0 Nausea; K59.00 Constipation, unspecified; I25.10 Atherosclerotic heart disease of native coronary artery without angina pectoris; I65.29 Occlusion and stenosis of unspecified carotid artery; E78.5 Hyperlipidemia, unspecified; D72.829 Elevated white blood cell count, unspecified; Z68.28 Body mass index [BMI] 28.0-28.9, adult
CPT/HCPCS: 36415; 70450; 74018; 80048; 81001; 82040; 82947; 83036; 83735; 84134; 85025; 92523; 97110; 97112; 97116; 97129; 97161; 97165; 97530; J8540